=== PATIENT | female | born 1965 | race African-American/Black ===

== ENCOUNTER 2016-10-19 21:23 | Emergency (ER) | payer OTHER ==
[~2016-10-19] VITALS: Ht 160 cm; Wt 92.5 kg
[~2016-10-19 21:23] MED LIST: ALBUTEROL SULF8.5 GM INH; IBUPROFEN600 MG ORAL; LEVAQUIN500 MG ORAL; METRONIDAZOLE500 MG ORAL; NKM; NORCO 5-325 TA1 EACH ORAL; PREDNISONE20 MG ORAL
[2016-10-19] MEDS ORDERED: LASIX20 M1 ORAL (21:46)
[2016-10-19 21:48] VITALS: BP 136/84
[2016-10-19] MEDS ORDERED: Norco 5mg/325mg tab ORAL ONE (22:00)
[2016-10-19] MEDS ORDERED: HYDROCODON-ACE1 EA15 ORAL (22:15)
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
[2016-10-19 22:19] VITALS: BP 136/84
== END 2016-10-19 22:19 | disposition home or self-care (01) ==
LOC: EMR 21:58
DX: M54.2 Cervicalgia (principal); M54.5 Low back pain; V49.40XA Driver injured in collision with unspecified motor vehicles in traffic accident, initial encounter; Y92.410 Unspecified street and highway as the place of occurrence of the external cause; I50.9 Heart failure, unspecified
CPT/HCPCS: 99283

== ENCOUNTER 2017-09-02 17:21 | Emergency (ER) | payer MEDICAID ==
[~2017-09-02] VITALS: Ht 162.6 cm; Wt 90.7 kg
[~2017-09-02 17:21] MED LIST changes: +HYDROCODON-ACE1 EA15 ORAL; +LASIX20 M1 ORAL
[2017-09-02 17:38] VITALS: BP 131/87
--- NOTE | 2017-09-02 17:42 | Emergency Room Report ---
History of Present Illness General Chief Complaint: Upper Respiratory Illness Present Illness HPI 51-year-old female patient presents the ER complaining of increased sputum production for the past few days. Patient reports new onset of cough today while walking into ER. Patient reports that she is now coughing up sputum. Reports sputum is green, denies hemoptysis. Patient reports that she was here picking up her daughter from the ER when she suddenly began coughing and decided to be checked out. Patient's daughter not being seen in ER for similar symptoms. Patient reports history of pacemaker placement in April 2017. Patient reports history of "water on heart". Also reports history of high blood pressure, reports taking medications currently. Denies fever. Reports some difficulty breathing secondary to the phlegm. Denies chest pain, abdominal pain , vomiting, diarrhea. Denies hx of cancer or PE. Denies prolonged sitting or recent travel. Allergies: Coded Allergies: No Known Allergies (Unverified , 10/19/16) Patient History Past Medical History: see triage record Now: No Reviewed Nursing Documentation: PMH: Agreed; PSxH: Agreed Nursing Documentation-PMH Hx Cardiac Problems: Yes - CHF Hx Hypertension: No Hx Pacemaker: Yes - 05/17/17 Hx Asthma: No Hx COPD: No Hx Diabetes: No Review of Systems All Other Systems: negative except mentioned in HPI Physical Exam Vital Signs Date Time Temp Pulse Resp B/P (MAP) Pulse Ox O2 Delivery O2 Flow Rate FiO2 09/02/17 17:29 98.3 95 22 131/87 97 Room Air 98.2 Sp02 EP Interpretation: reviewed, normal General Appearance: well appearing, no apparent distress, alert, GCS 15, non- toxic Head: normocephalic, atraumatic, other - no frontal or maxillary sinus TTP bilaterally Eyes: bilateral eye normal inspection, bilateral eye PERRL ENT: hearing grossly normal, normal pharynx, no angioedema, normal voice, TMs + canals normal, uvula midline, moist mucus membranes, other - postnasal drip Neck: full range of motion Respiratory: lungs clear, normal breath sounds, no rhonchi, no respiratory distress, no accessory muscle use, no wheezing, speaking full sentences Cardiovascular #1: regular rate, rhythm, no edema Gastrointestinal: no rebound Musculoskeletal: back normal, digits/nails normal, gait/station normal, normal range of motion, non-tender, no calf tenderness, Ruth's Sign negative Neurologic: alert, oriented x3, responsive, motor strength/tone normal, sensory intact Psychiatric: mood/affect normal Skin: no rash Lymphatic: no adenopathy Medical Decision Making PA Attestation Dr. Degroot is my supervising Physician whom patient management has been discussed with. Diagnostic Impression: Primary Impression: Cough Additional Impression: Sputum production ER Course Pt presents to ED c/o increase phlegm and cough DDX considered but are not limited to viral URI, pneumonia, CHF, strep throat, rhinitis, sinusitis, otitis media. Low suspicion for pneumonia, will not order CXR at this time. VITAL SIGNS are WNL, patient is afebrile Ordered x-ray to rule out underlying pathology. ER COURSE: PE: Lungs clear to auscultation, no wheezes, rhonci or rales. Post nasal drip noted, no tonsillar exudates, no pharyngeal erythema, sinuses not TTP. Chest x-ray negative for acute disease, pacemaker visible. No signs of acute acute CHF. Patient does not require further workup at this time. Likely viral etiology of symptoms. instructed patient on Symptomatic treatment. provide Rx for Sudafed and cough syrup. Followup with PCP for further treatment and/or referral as needed. Return to ER if symptoms worsen. DISCHARGE: -Rx given for Promethazine syrup for cough sx. -Rx given for Sudafed At this time pt is stable for d/c to home. Patient is resting comfortably, in no acute distress, nontoxic appearing. Patient to take medications as instructed Will provide with patient care instructions and any necessary prescriptions. Care plan and follow-up instructions provided. Patient instructed to follow-up with primary care provider in 3 - 5 days. Patient questions asked and answered. Patient reports understanding and agreement to treatment plan. ER precautions given. Patient instructed to return to ER immediately for any new or worsening of symptoms including but not limited to increasing SOB, persistent fever, intractable vomiting. - Please note that this Emergency Department Report was dictated using [email or web address] media [employer] technology software, occasionally this can lead to erroneous entry secondary to interpretation by the dictation equipment. Chest X-Ray Diagnostic Results Chest X-Ray Diagnostic Results : Chest X-Ray Ordered: Yes # of Views/Limited/Complete: 1 View Indication: Other - cough EP Interpretation: Yes JOEY Xray: Interpretation reviewed, by supervising MD, and agrees with findings. Interpretation: no consolidation, no effusion, no pneumothorax, no acute cardiopulmonary disease, other - pacemaker present Impression: No acute disease PA Scribe Text Wong Bhagat PA-C Last Vital Signs Date Time Temp Pulse Resp B/P (MAP) Pulse Ox O2 Delivery O2 Flow Rate FiO2 09/02/17 17:29 98.3 95 22 131/87 97 Room Air 98.2 Disposition: HOME, SELF-CARE Condition: Stable Scripts Guaifen/Phenyleph/Acetaminophn (Sudafed PE Pressure+Pain+Mucus) 1 Each Tablet 1 EACH PO BID, #24 TAB Prov: Jared Bhagat 09/02/17 Promethazine Hcl (PROMETHAZINE HCL*) 6.25 Mg/5 Ml Syrup 5 ML ORAL Q8H, #120 ML 0 Refills Prov: Jared Bhagat 09/02/17 Patient Instructions: Upper Respiratory Infection, Adult, [id number] Additional Instructions: Followup with primary care provider in 3 -5 days. Take medications as directed. Patient questions asked and answered. ER precautions given, patient instructed to return to ER immediately for any new or worsening of symptoms. Jared Bhagat September 02, 2017 17:42
--- NOTE | 2017-09-02 18:51 | Diagnostic Imaging Report ---
EXAM: XR Chest, 1 View CLINICAL HISTORY: COUGH TECHNIQUE: Frontal view of the chest. COMPARISON: 01/12/2016 FINDINGS: Lungs: Unremarkable. No consolidation. Pleural space: Unremarkable. No pneumothorax. Heart: Stable cardiomediastinal silhouette. Mediastinum: See above. Bones/joints: No acute osseous abnormality. Tubes, lines and devices: New left chest wall AICD. IMPRESSION: No acute cardiopulmonary process.
[2017-09-02] MEDS ORDERED: PROMETHAZI6.25 MG/1 ORAL (19:02)
[2017-09-02] MEDS ORDERED: SUDAFED PE PRE1 EAC3 PO (19:02)
[2017-09-02 19:14] VITALS: BP 0/0
== END 2017-09-02 19:14 | disposition home or self-care (01) ==
LOC: EMR 18:05
DX: R05 Cough (principal); I50.9 Heart failure, unspecified
CPT/HCPCS: 71045; 99284

== ENCOUNTER 2019-02-14 12:25 | Inpatient (IN) | payer OTHER, MEDICAID ==
[~2019-02-14] VITALS: Ht 167.6 cm; Wt 85.0 kg
[~2019-02-14 12:25] MED LIST changes: +PROMETHAZI6.25 MG/1 ORAL; +SUDAFED PE PRE1 EAC3 PO
[2019-02-14] MEDS ORDERED: FUROSEMIDE40 MG ORAL (12:39)
[2019-02-14] MEDS ORDERED: ATORVASTATIN CA40 MG ORAL (12:39)
[2019-02-14] MEDS ORDERED: LISINOPRIL5 MG ORAL (12:39)
--- NOTE | 2019-02-14 12:55 | NUR ---
ED Nurse Note: Pt walked in ED from home c/o SOB x 3 days. Pt aox4, on room air saturating 97%. Pt states she is on lasix PO. Placed on hospital gown. Peripheral IV on right AC started, pt tolerated well. Blood and urine collected; sent down to lab.
--- NOTE | 2019-02-14 13:05 | NUR ---
ED Nurse Note: xray at bedside.
--- NOTE | 2019-02-14 13:30 | Emergency Room Report ---
History of Present Illness General Chief Complaint: Dyspnea/Respdistress Source: Patient Present Illness HPI 3-year-old female with a history of hypertension, pacemaker, CHF comes to the ER for 2 to 3-day history of dyspnea on exertion shortness of breath cough with clear sputum, ankle edema, but denies any leg pain, denies chest pain, syncope, any other complaints. She does report being compliant with her diuretics and other meds, but reports that she has had dietary indiscretion as of late, including lots of fluid and salt intake which she thinks may have triggered this incident. Allergies: Coded Allergies: No Known Allergies (Unverified , 10/19/16) Patient History Past Medical History: see triage record Last Menstrual Period: 2013 Now: No Reviewed Nursing Documentation: PMH: Agreed; PSxH: Agreed Nursing Documentation-PMH Past Medical History: No History, Except For Hx Cardiac Problems: Yes - CHF Hx Hypertension: No Hx Pacemaker: Yes - 05/17/17 Hx Asthma: No Hx COPD: No Hx Diabetes: No Review of Systems All Other Systems: negative except mentioned in HPI Physical Exam Vital Signs Date Time Temp Pulse Resp B/P (MAP) Pulse Ox O2 Delivery O2 Flow Rate FiO2 02/14/19 12:34 98.4 98 20 104/94 (97) 94 Room Air Sp02 EP Interpretation: reviewed, normal General Appearance: alert, non-toxic, mild distress Head: normocephalic Eyes: bilateral eye normal inspection, bilateral eye PERRL, bilateral eye EOMI ENT: normal ENT inspection, hearing grossly normal, normal pharynx, no angioedema, normal voice, moist mucus membranes Neck: normal inspection, full range of motion, supple, supple/symm/no masses Respiratory: chest non-tender, lungs clear, decreased breath sounds - Diminished bilateral bases, chest symmetrical, palpation of chest normal Cardiovascular #1: normal peripheral pulses, regular rate, rhythm, JVD, edema - Ankle edema bilaterally Cardiovascular #2: 2+ radial (R), 2+ radial (L) Gastrointestinal: normal inspection, non tender, soft, no mass, no guarding, no rebound Rectal: deferred Genitourinary: normal inspection, no CVA tenderness Musculoskeletal: back normal, gait/station normal, normal range of motion, non- tender, no calf tenderness, Ruth's Sign negative Neurologic: alert, responsive, manager strategic alliances III-XII nml as tested, motor strength/tone normal, sensory intact, speech normal Psychiatric: judgement/insight normal, memory normal, mood/affect normal, no suicidal/homicidal ideation Lymphatic: no adenopathy Procedures Critical Care Time Critical Care Time 30 mins of critical care time, excluding all procedures due to risk of cardiorespiratory failure Medical Decision Making Diagnostic Impression: Primary Impression: Elevated troponin Additional Impression: Acute exacerbation of CHF (congestive heart failure) ER Course Patient nontoxic, was not having chest pain, but with signs and symptoms of CHF exacerbation, given IV Lasix 60mg, aspirin. Her troponin was positive, and Pro- BNP above 8000, will admit to tele. EKG Diagnostic Results EKG Time: 13:32 EP Interpretation: paced rate 100, no stemi Rate: normal Rhythm: other ST Segments: no acute changes ASA given to the pt in ED: Yes Rhythm Strip Diag. Results Rhythm Strip Time: 13:31 EP Interpretation: yes Rate: 100 Rhythm: no PVC's, no ectopy, other - paced Chest X-Ray Diagnostic Results Chest X-Ray Diagnostic Results : Chest X-Ray Ordered: Yes # of Views/Limited/Complete: 1 View Indication: Shortness of Breath EP Interpretation: Yes Interpretation: other - cardiomegaly, mild pulm vasc congestion, no effusion , no PTX Impression: Other - cardiomegaly, pulm vasc congestion Electronically Signed by: Asif Chaidez MD Last Vital Signs Date Time Temp Pulse Resp B/P (MAP) Pulse Ox O2 Delivery O2 Flow Rate FiO2 02/14/19 12:34 98.4 98 20 104/94 (97) 94 Room Air Disposition: ADMITTED INPATIENT Condition: Stable ASIF CHAIDEZ M.D Feb 14, 2019 13:30
[2019-02-14] MEDS ORDERED: Aspirin Baby 81mg ORAL ONE (13:45)
[2019-02-14 13:55] VITALS: BP 104/94
[2019-02-14 13:56] LABS: BASOPHILS % (AUTO) 1.4 % (0.0-2.0); EOSINOPHILS % (AUTO) 1.7 % (0.0-3.0); HEMOGLOBIN 13.3 G/DL (12.0-16.0); LYMPHOCYTES % (AUTO) 18.2 % (20.0-45.0); MEAN CORPUSCULAR VOLUME 84 FL (80-99); MONOCYTES % (AUTO) 4.5 % (1.0-10.0); NEUTROPHILS % (AUTO) 74.3 % (45.0-75.0); PLATELET COUNT 337 K/UL (150-450); RED BLOOD COUNT 5.11 M/UL (4.20-5.40); RED CELL DISTRIBUTION WIDTH 14.5 % (11.6-14.8)
--- NOTE | 2019-02-14 14:00 | NUR ---
ED Nurse Note: Pt in bed, awake, no resp distress noted. Will continue to monitor.
[2019-02-14 14:16] LABS: ANION GAP 12 mmol/L (5-15); BLOOD UREA NITROGEN 15 mg/dL (7-18); CALCIUM 8.9 MG/DL (8.5-10.1); CARBON DIOXIDE 27 MMOL/L (21-32); CHLORIDE 108 MMOL/L (98-107); POTASSIUM 3.8 MMOL/L (3.5-5.1); SODIUM 147 MMOL/L (136-145)
[2019-02-14 14:34] LABS: ALANINE AMINOTRANSFERASE 58 U/L (12-78); ALBUMIN 2.8 G/DL (3.4-5.0); ALBUMIN/GLOBULIN RATIO 0.9 (1.0-2.7); ALKALINE PHOSPHATASE 75 U/L (46-116); ASPARTATE AMINO TRANSFERASE 26 U/L (15-37); BILIRUBIN,TOTAL 1.2 MG/DL (0.2-1.0)
[2019-02-14 14:41] LABS: BILIRUBIN,DIRECT 0.2 MG/DL (0.0-0.3)
[2019-02-14 15:04] VITALS: BP 115/83
--- NOTE | 2019-02-14 16:37 | NUR ---
ED Nurse Note: Attempted to give report, per charge nurse room/bed not ready at this time. Housekeeping was paged x2 per charge nurse. Will call/try again.
--- NOTE | 2019-02-14 16:47 | NUR ---
ED Nurse Note: Pt awake in bed, eating sandwich. VSS, no respiratory distress noted. Will continue to monitor.
--- NOTE | 2019-02-14 17:04 | NUR ---
ED Nurse Note: Report given to LOLI Barrett via telephone.
[2019-02-14 17:10] VITALS: BP 136/88
--- NOTE | 2019-02-14 17:15 | NUR ---
NURSE NOTES: Patient transferred from ED via gurney, received report from Candelaria/RN. Patient is awake, alert and Oriented x4, No acute distress/SOB noted. ekg monitor placed per protocol. IV site patent, NO bleeding or infiltration noted. Vital signs taken. Skin Intact. Encouraged to use call light when needed. Bed in low position and locked. Call light within reach. Will continue plan of care.
--- NOTE | 2019-02-14 17:33 | NUR ---
TRANSFER TO FLOOR: Patient transferred to telemetry room 205-1 as ordered, per Dr Perez. Report given to LOLI Barrett. Belongings list inventoried and signed by patient and receiving RN. Medications sent to pharmacy. Transferred via CHELO valverde protocol accompanied by LEVI crump and RN. Patient in stable condition.
[2019-02-14 18:22] VITALS: BP 136/88
[2019-02-14 20:00] VITALS: BP 131/91
--- NOTE | 2019-02-14 20:00 | NUR ---
NURSE NOTES: Received report from LOLI Barrett. Patient is awake and responsive, A/O x4. Breathing regular with no distress noted at this time. Patient denies any pain or discomfort at this time. Patient's bed is in lowest position, breaks engaged, and call light within reach. Patient's IV is intact, saline locked. Will continue to monitor.
--- NOTE | 2019-02-14 20:01 | NUR ---
HAND-OFF: Report given to Joan/LOLI, Patient in stable condition. Endorsed plan of care.
--- NOTE | 2019-02-14 20:18 | Diagnostic Imaging Report ---
CHEST RADIOGRAPH Indication: Loss of breath Technique: Single AP view of the chest. Comparison: Chest radiograph dated 09/02/2017 Findings: The cardiomediastinal silhouette is unchanged with moderate cardiomegaly. There is pulmonary vascular congestion. There is no new airspace consolidation, pneumothorax or pleural effusion. Osseous structures demonstrate no acute abnormality. Unchanged left upper chest ED/pacemaker. IMPRESSION: 1. Pulmonary vascular congestion without new airspace consolidation. 2. Moderate cardiomegaly.
[2019-02-14] MEDS: Atorvastatin 20mg tab ORAL SCH (20:41)
[2019-02-14] MEDS: Morphine Sulfate 2mg/ml Inj(IV/IM USE ONLY) IVP PRN (20:50)
--- NOTE | 2019-02-14 21:02 | Cardiology Progress Note ---
Assessment/Plan Assessment/Plan [id number] Objective Last 24 Hour Vital Signs Date Time Temp Pulse Resp B/P (MAP) Pulse Ox O2 Delivery O2 Flow Rate FiO2 02/14/19 18:22 98.1 89 18 136/88 (104) 96 02/14/19 18:03 Room Air 02/14/19 17:32 98.2 97 20 128/73 97 Room Air 02/14/19 17:10 98.1 89 18 136/88 (104) 96 02/14/19 15:04 98.2 97 20 115/83 96 Room Air 02/14/19 13:55 98 20 Room Air 02/14/19 13:55 98.4 98 20 104/94 97 Room Air 02/14/19 12:34 98.4 98 20 104/94 (97) 94 Room Air Laboratory Tests Test 02/14/19 13:00 White Blood Count 6.0 K/UL (4.8-10.8) Red Blood Count 5.11 M/UL (4.20-5.40) Hemoglobin 13.3 G/DL (12.0-16.0) Hematocrit 43.0 % (37.0-47.0) Mean Corpuscular Volume 84 FL (80-99) Mean Corpuscular Hemoglobin 26.0 PG (27.0-31.0) L Mean Corpuscular Hemoglobin Concent 30.9 G/DL (32.0-36.0) L Red Cell Distribution Width 14.5 % (11.6-14.8) Platelet Count 337 K/UL (150-450) Mean Platelet Volume 6.2 FL (6.5-10.1) L Neutrophils (%) (Auto) 74.3 % (45.0-75.0) Lymphocytes (%) (Auto) 18.2 % (20.0-45.0) L Monocytes (%) (Auto) 4.5 % (1.0-10.0) Eosinophils (%) (Auto) 1.7 % (0.0-3.0) Basophils (%) (Auto) 1.4 % (0.0-2.0) Sodium Level 147 MMOL/L (136-145) H Potassium Level 3.8 MMOL/L (3.5-5.1) Chloride Level 108 MMOL/L (98-107) H Carbon Dioxide Level 27 MMOL/L (21-32) Anion Gap 12 mmol/L (5-15) Blood Urea Nitrogen 15 mg/dL (7-18) Creatinine 1.0 MG/DL (0.55-1.30) Estimat Glomerular Filtration Rate > 60 mL/min (>60) Glucose Level 114 MG/DL (74-106) H Calcium Level 8.9 MG/DL (8.5-10.1) Total Bilirubin 1.2 MG/DL (0.2-1.0) H Direct Bilirubin 0.2 MG/DL (0.0-0.3) Aspartate Amino Transf (AST/SGOT) 26 U/L (15-37) Alanine Aminotransferase (ALT/SGPT) 58 U/L (12-78) Alkaline Phosphatase 75 U/L (46-116) Troponin I 0.065 ng/mL (0.000-0.056) Pro-B-Type Natriuretic Peptide 8090 pg/mL (0-125) H Total Protein 6.0 G/DL (6.4-8.2) L Albumin 2.8 G/DL (3.4-5.0) L Globulin 3.2 g/dL Albumin/Globulin Ratio 0.9 (1.0-2.7) L Severino Rojas MD Feb 14, 2019 21:02
[2019-02-15] VITALS: BP 113/72
[2019-02-15 04:00] VITALS: BP 138/94
--- NOTE | 2019-02-15 06:46 | NUR ---
NURSE NOTES: Called Dr. Perez regarding patient's request for Benadryl for itching. Awaiting callback.
--- NOTE | 2019-02-15 07:02 | NUR ---
NURSE NOTES: Received new order from Dr. Perez for Benadryl 50mg PO q6hr PRN x 3 days. Noted and carried out.
--- NOTE | 2019-02-15 07:15 | NUR ---
HAND-OFF: Report given to LOLI Barrett. Patient is awake lying semi-anderson's; resting comfortably. In stable condition.
--- NOTE | 2019-02-15 07:20 | NUR ---
NURSE NOTES: Received report from Ken/RN, Patient is awake and alert. Breathing unlabored and even, no acute distress/SOB noted. A/O x4, Able to make needs known. IV site patent, no bleeding or infiltration noted. Araceli pain at this time. Encouraged to use call light when needed. Bed in low position and locked, Bed alarm engaged. Call light within reach. Will continue plan of care.
[2019-02-15 07:21] LABS: ANION GAP 8 mmol/L (5-15); BLOOD UREA NITROGEN 18 mg/dL (7-18); CALCIUM 8.6 MG/DL (8.5-10.1); CARBON DIOXIDE 29 MMOL/L (21-32); CHLORIDE 106 MMOL/L (98-107); POTASSIUM 3.4 MMOL/L (3.5-5.1); SODIUM 143 MMOL/L (136-145)
[2019-02-15 08:00] VITALS: BP 144/104
[2019-02-15] MEDS: Lisinopril 2.5mg tab ORAL SCH ×2 (08:46→17:23)
[2019-02-15] MEDS: Morphine Sulfate 2mg/ml Inj(IV/IM USE ONLY) IVP PRN ×2 (08:47→17:24)
[2019-02-15] MEDS ORDERED: Lisinopril 2.5mg tab ORAL SCH (09:00)
[2019-02-15] MEDS ORDERED: Furosemide 40mg tab ORAL SCH (09:00)
--- NOTE | 2019-02-15 10:33 | NUR ---
*-* INSURANCE *-* ALL AVAILABLE CLINICALS HAVE BEEN FAXED TO: [id number] NCM:BENJY P: [phone] F: [phone] Addendum: 02/15/19 at 1632 by HELADIO JOSE CM Alignment CM: Yolie ref#[id number] ph#[phone] cell#[phone] fax#[phone] & [employer] No CM or tracking# assigned yet PH#[phone]
--- NOTE | 2019-02-15 11:10 | NUR ---
PT EVALUATION NOTE Patient seen for initial evaluation, see complete evaluation for details. Patient presents with generalized weakness and deconditioning which affects patient's ability to complete mobility tasks and ADLs. Patient's ambulation limited to 100 ft due to c/o SOB with ambulation. Patient educated in proper breathing techniques and pacing skills. Patient will benefit from skilled inpatient PT intervention to address overall strength and endurance and to increase knowledge for improved breathing while performing functional mobility tasks. Recommend discharge home once medically cleared by MD. No DME needs identified at this time, patient has four wheeled walker and bedside commode at home. Addendum: 02/15/19 at 1229 by ADDY DU PT Amended: Links added.
--- NOTE | 2019-02-15 11:29 | Consultation ---
History of Present Illness General Date patient seen: Feb 15, 2019 Chief Complaint: Dyspnea/Respdistress Present Illness HPI 53 year old female with hx of systolic cardiomyopathy, ICD, on Lasix presented to ER with CC of shortness of breath for the last three days. She just moved to a new apartment because of respiratory problems she had in previous apartment. Allergies: Coded Allergies: No Known Allergies (Unverified , 10/19/16) Medication History Scheduled Atorvastatin Calcium* (Atorvastatin Calcium*), 40 MG ORAL BEDTIME, (Reported) Furosemide* (Lasix*), 40 MG ORAL DAILY, (Reported) Lisinopril (Lisinopril*), 5 MG ORAL DAILY, (Reported) Discontinued Medications Furosemide* (Lasix*), 20 MG ORAL TWICE A DAY, (Reported) Discontinued Reason: Pt stopped taking med Guaifen/Phenyleph/Acetaminophn (Sudafed PE Pressure+Pain+Mucus), 1 EACH PO BID Discontinued Reason: Pt stopped taking med Hydrocodone/Acetaminophen 5-325* (Hydrocodone/Acetaminophen 5-325*), 1 TAB ORAL Q6H PRN for For Pain Discontinued Reason: Pt stopped taking med Promethazine Hcl (Promethazine Hcl*), 5 ML ORAL Q8H Discontinued Reason: Pt stopped taking med Patient History Healthcare decision maker N Resuscitation status Full Code Advanced Directive on File Past Medical/Surgical History Past Medical/Surgical History: (1) Chronic systolic CHF (congestive heart failure) (2) EF of 25% (3) Bronchitis Review of Systems All Other Systems: negative except mentioned in HPI Physical Exam General Appearance: WD/WN, no apparent distress Lines, tubes and drains: peripheral HEENT: normocephalic, atraumatic Neck: non-tender, normal alignment Respiratory/Chest: chest wall non-tender, lungs clear Breasts: no masses Cardiovascular/Chest: normal peripheral pulses Abdomen: normal bowel sounds Genitourinary/Rectal: normal genital exam Extremities: normal range of motion Skin Exam: normal pigmentation 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 Last 24 Hour Vital Signs Date Time Temp Pulse Resp B/P (MAP) Pulse Ox O2 Delivery O2 Flow Rate FiO2 02/15/19 09:00 Room Air 02/15/19 08:46 144/104 02/15/19 08:00 97.4 107 20 144/104 (117) 97 02/15/19 08:00 116 1024/19 04:00 97.4 92 20 138/94 (109) 98 02/15/19 04:00 91 02/15/19 00:00 98.1 110 19 113/72 (86) 96 02/15/19 00:00 102 02/14/19 21:00 Room Air 02/14/19 20:00 97.6 96 19 131/91 (104) 95 02/14/19 20:00 95 02/14/19 18:22 98.1 89 18 136/88 (104) 96 02/14/19 18:03 Room Air 02/14/19 17:32 98.2 97 20 128/73 97 Room Air 02/14/19 17:10 98.1 89 18 136/88 (104) 96 02/14/19 15:04 98.2 97 20 115/83 96 Room Air 02/14/19 13:55 98 20 Room Air 02/14/19 13:55 98.4 98 20 104/94 97 Room Air 02/14/19 12:34 98.4 98 20 104/94 (97) 94 Room Air Intake and Output 02/14/19 02/15/19 19:00 07:00 Intake Total 250 ml 250 ml Balance 250 ml 250 ml Intake Oral 250 ml 250 ml # Voids 2 Laboratory Tests Test 02/14/19 13:00 02/15/19 04:47 White Blood Count 6.0 K/UL (4.8-10.8) Red Blood Count 5.11 M/UL (4.20-5.40) Hemoglobin 13.3 G/DL (12.0-16.0) Hematocrit 43.0 % (37.0-47.0) Mean Corpuscular Volume 84 FL (80-99) Mean Corpuscular Hemoglobin 26.0 PG (27.0-31.0) L Mean Corpuscular Hemoglobin Concent 30.9 G/DL (32.0-36.0) L Red Cell Distribution Width 14.5 % (11.6-14.8) Platelet Count 337 K/UL (150-450) Mean Platelet Volume 6.2 FL (6.5-10.1) L Neutrophils (%) (Auto) 74.3 % (45.0-75.0) Lymphocytes (%) (Auto) 18.2 % (20.0-45.0) L Monocytes (%) (Auto) 4.5 % (1.0-10.0) Eosinophils (%) (Auto) 1.7 % (0.0-3.0) Basophils (%) (Auto) 1.4 % (0.0-2.0) Sodium Level 147 MMOL/L (136-145) H 143 MMOL/L (136-145) Potassium Level 3.8 MMOL/L (3.5-5.1) 3.4 MMOL/L (3.5-5.1) L Chloride Level 108 MMOL/L (98-107) H 106 MMOL/L (98-107) Carbon Dioxide Level 27 MMOL/L (21-32) 29 MMOL/L (21-32) Anion Gap 12 mmol/L (5-15) 8 mmol/L (5-15) Blood Urea Nitrogen 15 mg/dL (7-18) 18 mg/dL (7-18) Creatinine 1.0 MG/DL (0.55-1.30) 1.0 MG/DL (0.55-1.30) Estimat Glomerular Filtration Rate > 60 mL/min (>60) > 60 mL/min (>60) Glucose Level 114 MG/DL (74-106) H 97 MG/DL (74-106) Calcium Level 8.9 MG/DL (8.5-10.1) 8.6 MG/DL (8.5-10.1) Total Bilirubin 1.2 MG/DL (0.2-1.0) H Direct Bilirubin 0.2 MG/DL (0.0-0.3) Aspartate Amino Transf (AST/SGOT) 26 U/L (15-37) Alanine Aminotransferase (ALT/SGPT) 58 U/L (12-78) Alkaline Phosphatase 75 U/L (46-116) Troponin I 0.065 ng/mL (0.000-0.056) 0.074 ng/mL (0.000-0.056) Pro-B-Type Natriuretic Peptide 8090 pg/mL (0-125) H Total Protein 6.0 G/DL (6.4-8.2) L Albumin 2.8 G/DL (3.4-5.0) L Globulin 3.2 g/dL Albumin/Globulin Ratio 0.9 (1.0-2.7) L Magnesium Level 1.6 MG/DL (1.8-2.4) L Height (Feet): 5 Height (Inches): 6.00 Weight (Pounds): 179 Medications Current Medications Medications (Trade) Dose Ordered Sig/Tristan Route PRN Reason Start Time Stop Time Status Last Admin Dose Admin Atorvastatin Calcium (Lipitor) 40 mg BEDTIME ORAL 02/14/19 21:00 03/16/19 20:59 02/14/19 20:41 Diphenhydramine HCl (Benadryl) 50 mg Q6H PRN ORAL Itching 02/15/19 08:15 02/18/19 08:14 02/15/19 08:45 Furosemide (Lasix) 40 mg EVERY 12 HOURS IV 02/15/19 09:00 03/17/19 08:59 02/15/19 08:46 Lisinopril (Zestril) 5 mg BID ORAL 02/15/19 09:00 03/17/19 08:59 02/15/19 08:46 Magnesium Sulfate 100 ml @ 100 mls/hr Q1H IV 02/15/19 12:45 02/15/19 14:44 UNV Morphine Sulfate (Morphine Sulfate) 2 mg Q4H PRN IVP PAIN 4-10 02/14/19 18:00 02/21/19 17:59 02/14/19 20:50 Potassium Chloride (K-Dur) 40 meq ONCE ONCE ORAL 02/15/19 11:30 02/15/19 11:31 UNV Assessment/Plan Problem List: (1) Bronchitis ICD Codes: J40 - Bronchitis, not specified as acute or chronic SNOMED: 85636879 (2) Chronic systolic CHF (congestive heart failure) ICD Codes: I50.22 - Chronic systolic (congestive) heart failure SNOMED: 36764131, 740059234 (3) EF of 25% (4) Non-ST elevation (NSTEMI) myocardial infarction ICD Codes: I21.4 - Non-ST elevation (NSTEMI) myocardial infarction SNOMED: 55247582 Assessment/Plan: respiratory treatment titrate fio2 to sat of 92% there is no pulmonary edema on CXR. She doesn't have any peripheral edema. Echo reviewed Rosa Goodwin MD Feb 15, 2019 11:29
[2019-02-15 12:00] VITALS: BP 137/103
--- NOTE | 2019-02-15 13:09 | CDS Physician Query ---
Clarification is required for compliance, coding accuracy, and to reflect severity of illness for this patient Dear Severino Steven MD Date: 02/15/2019 Medical Laboratory Technical Officer/CDS Name: Tristin Cristobal 53 year old female with hx of systolic cardiomyopathy, ICD, on Lasix presented to ER with CC of shortness of breath for the last three days. She just moved to a new apartment because of respiratory problems she had in previous apartment. "CHF" documented in Cardiology progress notes Echo: EF 25% BNP: 8090 Tx: IV FUROCEMID Please Clarify: Acuity [] Acute [] Chronic [] Acute on Chronic Type [] Systolic [] Diastolic [] Systolic & Diastolic (Combined) [] Other: Present on Admission: [] Yes [] No [] Clinically Undetermined Physician signature Date Please also document in your Progress Notes and/or Discharge Summary and indicate if the condition was present on admission. TERRANCE
[2019-02-15 16:00] VITALS: BP 145/91
--- NOTE | 2019-02-15 16:19 | NUR ---
CASE MANAGEMENT: INITIAL REVIEW 53YR OLD FEMALE FROM HOME CC: DYSPNEA/ RESP. DISTRESS SI: CHF. ELEVATED TROP 98.4 98 20 104/94 94% RA TROP 0.065; NA+ 147; BNP 8090 IS: IV LASIX X1 ASA PO X1 2E TELE UNIT CASE MANAGEMENT: INITIAL REVIEW 02/15/19 SI: CHF. ELEVATED TROP 97.4 107 20 144/104 97% RA TROP 0.074; K+ 3.4; MG 1.6 IS: IV LASIX Q12HR ZESTRIL PO BID LIPITOR PO BID IV MORPHINE SULFATE Q4/PRN ASA PO X1 2E TELE UNIT
[2019-02-15 20:00] VITALS: BP 137/90
[2019-02-15] MEDS: Atorvastatin 20mg tab ORAL SCH (21:03)
--- NOTE | 2019-02-15 21:06 | Cardiology Progress Note ---
Assessment/Plan Assessment/Plan cm s/p icd New diagnosis of LV thrombus will need anticoagulation heparin first then Coumadin will need couadmin teaching continue chf treatment i have reviewe srikanth of [facility] echo image mys elf d/w pt regardin lv thombus and risk of embolism and treatmen with anticoagualtion Subjective Cardiovascular: Denies: chest pain, irregular heart rate Respiratory: Reports: shortness of breath Gastrointestinal/Abdominal: Denies: abdominal pain Genitourinary: Denies: burning Objective Last 24 Hour Vital Signs Date Time Temp Pulse Resp B/P (MAP) Pulse Ox O2 Delivery O2 Flow Rate FiO2 02/15/19 17:23 145/91 02/15/19 16:00 108 02/15/19 16:00 97.7 110 20 145/91 (109) 97 02/15/19 12:00 97.7 88 18 137/103 (114) 96 02/15/19 12:00 98 02/15/19 09:00 Room Air 02/15/19 08:46 144/104 02/15/19 08:00 97.4 107 20 144/104 (117) 97 02/15/19 08:00 116 02/15/19 04:00 97.4 92 20 138/94 (109) 98 02/15/19 04:00 91 02/15/19 00:00 98.1 110 19 113/72 (86) 96 02/15/19 00:00 102 General Appearance: no apparent distress, alert Neck: supple Respiratory/Chest: crackles/rales - base Abdomen: normal bowel sounds, non tender, soft Extremities: no swelling Intake and Output 02/14/19 02/15/19 19:00 07:00 Intake Total 250 ml 250 ml Balance 250 ml 250 ml Intake Oral 250 ml 250 ml # Voids 2 Laboratory Tests Test 02/15/19 04:47 02/15/19 12:00 02/15/19 19:50 Sodium Level 143 MMOL/L (136-145) Potassium Level 3.4 MMOL/L (3.5-5.1) L Chloride Level 106 MMOL/L (98-107) Carbon Dioxide Level 29 MMOL/L (21-32) Anion Gap 8 mmol/L (5-15) Blood Urea Nitrogen 18 mg/dL (7-18) Creatinine 1.0 MG/DL (0.55-1.30) Estimat Glomerular Filtration Rate > 60 mL/min (>60) Glucose Level 97 MG/DL (74-106) Calcium Level 8.6 MG/DL (8.5-10.1) Magnesium Level 1.6 MG/DL (1.8-2.4) L Troponin I 0.074 ng/mL (0.000-0.056) 0.061 ng/mL (0.000-0.056) Pending Severino Rojas MD Feb 15, 2019 21:06
[2019-02-15] MEDS ORDERED: Heparin 5000 units/ml inj IV SCH (21:22)
[2019-02-15] MEDS ORDERED: Heparin 25,000u/D5W 500ml 500 ML IV SCH (21:23)
[2019-02-15 21:30] LABS: BASOPHILS % (AUTO) 1.7 % (0.0-2.0); EOSINOPHILS % (AUTO) 2.8 % (0.0-3.0); HEMATOCRIT 41.6 % (37.0-47.0); HEMOGLOBIN 13.3 G/DL (12.0-16.0); LYMPHOCYTES % (AUTO) 19.8 % (20.0-45.0); MEAN CORPUSCULAR VOLUME 83 FL (80-99); MONOCYTES % (AUTO) 3.5 % (1.0-10.0); NEUTROPHILS % (AUTO) 72.2 % (45.0-75.0); PLATELET COUNT 340 K/UL (150-450); RED BLOOD COUNT 5.02 M/UL (4.20-5.40); RED CELL DISTRIBUTION WIDTH 14.4 % (11.6-14.8); WHITE BLOOD COUNT 7.8 K/UL (4.8-10.8)
--- NOTE | 2019-02-15 23:14 | NUR ---
HAND-OFF: Report given to Jessica/RN, Patient in stable condition. Endorsed plan of care.
--- NOTE | 2019-02-15 23:59 | NUR ---
NURSE NOTES: Received pt from [facility]. Pt asleep. Bed in lowest position. Call light within reach. Will continue to monitor.
[2019-02-16] VITALS: BP 146/101
--- NOTE | 2019-02-16 02:13 | NUR ---
NURSE NOTES: Called and left a message with Dr. Perez and Dr. Goodwin regarding pts complaint of difficulty breathing. Dr. Perez gave the following orders: - Duoneb q6 prn
[2019-02-16] MEDS: Albuterol/Ipratropium 3ml neb HHN PRN ×2 (02:42→20:20)
[2019-02-16 04:00] VITALS: BP 149/100
[2019-02-16 04:39] LABS: BASOPHILS % (AUTO) 1.3 % (0.0-2.0); EOSINOPHILS % (AUTO) 2.8 % (0.0-3.0); HEMATOCRIT 39.9 % (37.0-47.0); LYMPHOCYTES % (AUTO) 15.7 % (20.0-45.0); MEAN CORPUSCULAR VOLUME 82 FL (80-99); MONOCYTES % (AUTO) 3.2 % (1.0-10.0); PLATELET COUNT 320 K/UL (150-450); RED BLOOD COUNT 4.86 M/UL (4.20-5.40); RED CELL DISTRIBUTION WIDTH 14.6 % (11.6-14.8); WHITE BLOOD COUNT 7.9 K/UL (4.8-10.8)
[2019-02-16 05:13] LABS: ALANINE AMINOTRANSFERASE 42 U/L (12-78); ALBUMIN 2.7 G/DL (3.4-5.0); ALBUMIN/GLOBULIN RATIO 0.9 (1.0-2.7); ALKALINE PHOSPHATASE 71 U/L (46-116); ANION GAP 7 mmol/L (5-15); ASPARTATE AMINO TRANSFERASE 20 U/L (15-37); BILIRUBIN,TOTAL 1.1 MG/DL (0.2-1.0); BLOOD UREA NITROGEN 19 mg/dL (7-18); CALCIUM 8.2 MG/DL (8.5-10.1); CARBON DIOXIDE 29 MMOL/L (21-32); CHLORIDE 106 MMOL/L (98-107); POTASSIUM 3.6 MMOL/L (3.5-5.1); SODIUM 142 MMOL/L (136-145)
[2019-02-16] MEDS ORDERED: Heparin 25,000u/D5W 500ml 500 ML IV SCH ×3 (05:15→19:45)
[2019-02-16] MEDS ORDERED: Heparin 5000 units/ml inj IV SCH ×2 (05:15→19:45)
[2019-02-16 05:21] LABS: BILIRUBIN,DIRECT 0.3 MG/DL (0.0-0.3)
--- NOTE | 2019-02-16 07:32 | NUR ---
HAND-OFF: Report given to [facility]. Pt stable.
[2019-02-16 08:00] VITALS: BP_SYST 137; BP_DIAS 100; BP_DIAS 102
--- NOTE | 2019-02-16 08:06 | NUR ---
Received patient awake, oriented. Denies any pain at this time. On room air. No SOB/respi distress. IV site to right hand intact, IV heparin running at 22cc/hr. All needs attended, Will continue to monitor.
--- NOTE | 2019-02-16 08:16 | NUR ---
RADIOLOGY DEPT., CHEST X-RAY DONE.-P.DYE
--- NOTE | 2019-02-16 08:39 | Diagnostic Imaging Report ---
Indication: Dyspnea Technique: One view of the chest Comparison: 02/14/2019 Findings: There is a left chest biventricular AICD again demonstrated. Asymmetric hazy opacity throughout the right lung noted. Minimal pulmonary interstitial congestion persists. The pleural spaces are clear. Impression: Cardiomegaly Minimal pulmonary interstitial congestion Diffuse hazy right lung opacity; suspect just represents overlying soft tissue but hazy infiltrate or edema also possible
--- NOTE | 2019-02-16 08:46 | General Progress Note ---
Assessment/Plan Problem List: (1) HTN (hypertension) ICD Codes: I10 - Essential (primary) hypertension SNOMED: 31339894 (2) Non-ST elevation (NSTEMI) myocardial infarction ICD Codes: I21.4 - Non-ST elevation (NSTEMI) myocardial infarction SNOMED: 97069286 (3) Elevated troponin ICD Codes: R79.89 - Other specified abnormal findings of blood chemistry SNOMED: 838009656, 609902114, 503044442 (4) Acute exacerbation of CHF (congestive heart failure) ICD Codes: I50.9 - Heart failure, unspecified SNOMED: 127962375, 87582981713022, 112461490 Status: stable, progressing Assessment/Plan: pt diet pain control cardio f/u cbc bmp am Subjective Constitutional: Reports: weakness Allergies: Coded Allergies: No Known Allergies (Unverified , 10/19/16) All Systems: reviewed and negative except above Subjective eating calm Objective Last 24 Hour Vital Signs Date Time Temp Pulse Resp B/P (MAP) Pulse Ox O2 Delivery O2 Flow Rate FiO2 02/16/19 08:31 Room Air 02/16/19 04:00 97.9 103 21 149/100 (116) 93 02/16/19 04:00 108 02/16/19 02:42 107 20 98 Nasal Cannula 2.0 28 108 20 90 02/16/19 00:00 97.5 109 19 146/101 (116) 91 02/16/19 00:00 108 02/15/19 21:00 Room Air 02/15/19 20:00 113 02/15/19 20:00 98.1 105 18 137/90 (106) 98 02/15/19 17:23 145/91 02/15/19 16:00 108 02/15/19 16:00 97.7 110 20 145/91 (109) 97 02/15/19 12:00 97.7 88 18 137/103 (114) 96 02/15/19 12:00 98 02/15/19 09:00 Room Air 02/15/19 08:46 144/104 Intake and Output 02/15/19 02/16/19 19:00 07:00 Intake Total 360 ml Balance 360 ml Intake Oral 360 ml # Voids 3 3 Laboratory Tests 02/15/19 12:00: Troponin I 0.061H 02/15/19 19:50: Troponin I 0.243H 02/15/19 21:17: White Blood Count 7.8, Red Blood Count 5.02, Hemoglobin 13.3, Hematocrit 41.6, Mean Corpuscular Volume 83, Mean Corpuscular Hemoglobin 26.4L, Mean Corpuscular Hemoglobin Concent 31.9L, Red Cell Distribution Width 14.4, Platelet Count 340, Mean Platelet Volume 6.8, Neutrophils (%) (Auto) 72.2, Lymphocytes (%) (Auto) 19.8L, Monocytes (%) (Auto) 3.5, Eosinophils (%) (Auto) 2.8, Basophils (%) (Auto ) 1.7, Activated Partial Thromboplast Time 24 02/16/19 04:00: White Blood Count 7.9, Red Blood Count 4.86, Hemoglobin 13.0, Hematocrit 39.9, Mean Corpuscular Volume 82, Mean Corpuscular Hemoglobin 26.8L, Mean Corpuscular Hemoglobin Concent 32.7, Red Cell Distribution Width 14.6, Platelet Count 320, Mean Platelet Volume 6.5, Neutrophils (%) (Auto) 77.0H, Lymphocytes (%) (Auto) 15.7L, Monocytes (%) (Auto) 3.2, Eosinophils (%) (Auto) 2.8, Basophils (%) (Auto ) 1.3, Activated Partial Thromboplast Time 42H, Sodium Level 142, Potassium Level 3.6, Chloride Level 106, Carbon Dioxide Level 29, Anion Gap 7, Blood Urea Nitrogen 19H, Creatinine 1.0, Estimat Glomerular Filtration Rate > 60, Glucose Level 112H, Calcium Level 8.2L, Total Bilirubin 1.1H, Direct Bilirubin 0.3, Aspartate Amino Transf (AST/SGOT) 20, Alanine Aminotransferase (ALT/SGPT) 42, Alkaline Phosphatase 71, Pro-B-Type Natriuretic Peptide 6469H, Total Protein 5.7L, Albumin 2.7L, Globulin 3.0, Albumin/Globulin Ratio 0.9L Height (Feet): 5 Height (Inches): 6.00 Weight (Pounds): 179 General Appearance: lethargic EENT: normal ENT inspection Neck: normal alignment Cardiovascular: normal peripheral pulses, normal rate, regular rhythm Respiratory/Chest: chest wall non-tender, lungs clear, normal breath sounds Abdomen: normal bowel sounds, non tender, soft Extremities: normal inspection Edema: no edema noted Arm (L), no edema noted Arm (R), no edema noted Leg (L), no edema noted Leg (R), no edema noted Pedal (L), no edema noted Pedal (R), no edema noted Generalized Neurologic: responsive, motor weakness Skin: normal pigmentation, warm/dry Alan Perez DO Feb 16, 2019 08:46
[2019-02-16] MEDS: Lisinopril 2.5mg tab ORAL SCH ×2 (09:10→17:24)
--- NOTE | 2019-02-16 09:27 | NUR ---
CASE MANAGEMENT:REVIEW 02/16/19 SI: NEW DIAGNOSIS OF LV THROMBUS NSTEMI. AC/CHR CHF. HTN 98.6 115 26 137/102 95% ON RA LAST TROPONIN(+) 0.243 IS: HEPARIN GTT IV LASIX Q12 LISINOPRIL PO BID : TELEMETRY STATUS DCP: FROM HOME
--- NOTE | 2019-02-16 10:15 | NUR ---
PT NOTE Patient with left ventricle thrombus. Discussed with Massimo ENNIS and Marino wei RN. Patient on heparin drip, PT contraindicated per heparin protocol. Will discharge patient from PT at this time and wait for MD resume order for PT once patient is medically cleared to participate with PT.
--- NOTE | 2019-02-16 11:23 | NUR ---
RD ASSESSMENT & RECOMMENDATIONS SEE CARE ACTIVITY FOR COMPLETE ASSESSMENT DAILY ESTIMATED NEEDS: Needs based on Cardiac, pulmonary adj 62.8kg 25-30 kcals/kg 1510-8696 total kcals 1-1.5 g protein/kg 63-94 g total protein Fluid per MD, on lasix NUTRITION DIAGNOSIS: *Decrease sodium needs r/t CHF, cardiac history as evidenced by elev BP (137/102), elev BNP (6469), on lasix. CURRENT DIET:Low Na diet PO DIET RECOMMENDATIONS: Maintain Low Sodium Diet ADDITIONAL RECOMMENDATIONS: 1) Obtain daily weights/ standing if able . 2) Monitor fluid intake w/ lasix 3) Check lytes daily on lasix 4) Obtain a lipid panel for eval
--- NOTE | 2019-02-16 11:50 | Pulmonology Progress Note ---
Assessment/Plan Problems: (1) Non-ST elevation (NSTEMI) myocardial infarction (2) Bronchitis (3) Chronic systolic CHF (congestive heart failure) (4) EF of 25% Assessment/Plan troponin went up. echo reviewed on Heparin drip respiratory treatment antitussives f/u cardiology recommendations Subjective ROS Limited/Unobtainable: No Interval Events: still coughing Allergies: Coded Allergies: No Known Allergies (Unverified , 10/19/16) Objective Last 24 Hour Vital Signs Date Time Temp Pulse Resp B/P (MAP) Pulse Ox O2 Delivery O2 Flow Rate FiO2 02/16/19 09:32 119 22 95 Nasal Cannula 2.0 28 02/16/19 09:32 94 Nasal Cannula 2.0 28 02/16/19 09:10 137/100 02/16/19 08:31 Room Air 02/16/19 08:00 98.6 115 21 137/100 (112) 93 02/16/19 08:00 108 02/16/19 08:00 98.6 115 26 137/102 (114) 95 02/16/19 04:00 97.9 103 21 149/100 (116) 93 02/16/19 04:00 108 02/16/19 02:42 107 20 98 Nasal Cannula 2.0 28 108 20 90 02/16/19 00:00 97.5 109 19 146/101 (116) 91 02/16/19 00:00 108 02/15/19 21:00 Room Air 02/15/19 20:00 113 02/15/19 20:00 98.1 105 18 137/90 (106) 98 02/15/19 17:23 145/91 02/15/19 16:00 108 02/15/19 16:00 97.7 110 20 145/91 (109) 97 02/15/19 12:00 97.7 88 18 137/103 (114) 96 02/15/19 12:00 98 Intake and Output 02/15/19 02/16/19 19:00 07:00 Intake Total 360 ml Balance 360 ml Intake Oral 360 ml # Voids 3 3 General Appearance: WD/WN HEENT: normocephalic, atraumatic Respiratory/Chest: chest wall non-tender, lungs clear Breasts: no masses Cardiovascular: normal peripheral pulses, normal rate Abdomen: normal bowel sounds, no organomegaly Genitourinary: normal external genitalia Skin: no rash 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 Laboratory Tests 02/15/19 12:00: Troponin I 0.061H 02/15/19 19:50: Troponin I 0.243H 02/15/19 21:17: White Blood Count 7.8, Red Blood Count 5.02, Hemoglobin 13.3, Hematocrit 41.6, Mean Corpuscular Volume 83, Mean Corpuscular Hemoglobin 26.4L, Mean Corpuscular Hemoglobin Concent 31.9L, Red Cell Distribution Width 14.4, Platelet Count 340, Mean Platelet Volume 6.8, Neutrophils (%) (Auto) 72.2, Lymphocytes (%) (Auto) 19.8L, Monocytes (%) (Auto) 3.5, Eosinophils (%) (Auto) 2.8, Basophils (%) (Auto ) 1.7, Activated Partial Thromboplast Time 24 02/16/19 04:00: White Blood Count 7.9, Red Blood Count 4.86, Hemoglobin 13.0, Hematocrit 39.9, Mean Corpuscular Volume 82, Mean Corpuscular Hemoglobin 26.8L, Mean Corpuscular Hemoglobin Concent 32.7, Red Cell Distribution Width 14.6, Platelet Count 320, Mean Platelet Volume 6.5, Neutrophils (%) (Auto) 77.0H, Lymphocytes (%) (Auto) 15.7L, Monocytes (%) (Auto) 3.2, Eosinophils (%) (Auto) 2.8, Basophils (%) (Auto ) 1.3, Activated Partial Thromboplast Time 42H, Sodium Level 142, Potassium Level 3.6, Chloride Level 106, Carbon Dioxide Level 29, Anion Gap 7, Blood Urea Nitrogen 19H, Creatinine 1.0, Estimat Glomerular Filtration Rate > 60, Glucose Level 112H, Calcium Level 8.2L, Total Bilirubin 1.1H, Direct Bilirubin 0.3, Aspartate Amino Transf (AST/SGOT) 20, Alanine Aminotransferase (ALT/SGPT) 42, Alkaline Phosphatase 71, Pro-B-Type Natriuretic Peptide 6469H, Total Protein 5.7L, Albumin 2.7L, Globulin 3.0, Albumin/Globulin Ratio 0.9L 02/16/19 11:40: Activated Partial Thromboplast Time [Pending] Current Medications Medications (Trade) Dose Ordered Sig/Tristan Route PRN Reason Start Time Stop Time Status Last Admin Dose Admin Albuterol/ Ipratropium (Albuterol/ Ipratropium) 3 ml Q6H PRN HHN sob 02/16/19 02:30 02/21/19 02:29 02/16/19 02:42 Atorvastatin Calcium (Lipitor) 40 mg BEDTIME ORAL 02/14/19 21:00 03/16/19 20:59 02/15/19 21:03 Diphenhydramine HCl (Benadryl) 50 mg Q6H PRN ORAL Itching 02/15/19 08:15 02/18/19 08:14 02/16/19 00:11 Furosemide (Lasix) 40 mg EVERY 12 HOURS IV 02/15/19 09:00 03/17/19 08:59 02/16/19 09:10 Heparin Sodium/ Dextrose 500 ml @ 35.725 mls/ hr ADJUST PER PROTOCOL IV 02/16/19 05:15 03/18/19 05:14 02/16/19 05:15 Lisinopril (Zestril) 5 mg BID ORAL 02/15/19 09:00 03/17/19 08:59 02/16/19 09:10 Morphine Sulfate (Morphine Sulfate) 2 mg Q4H PRN IVP PAIN 4-10 02/14/19 18:00 02/21/19 17:59 02/15/19 17:24 Rosa Goodwin MD Feb 16, 2019 11:50
--- NOTE | 2019-02-16 11:54 | History and Physical Report ---
DATE OF ADMISSION: 02/14/2019 DATE AND TIME SEEN: 02/15/2019, approximate time is 2 p.m. CONSULTANTS: 1. Severino Rojas M.D. 2. Rosa Goodwin M.D. CHIEF COMPLAINT: Shortness of breath. BRIEF HISTORY: This is a 53-year-old female, who lives at home, presented with a week of increased shortness of breath. She came to [place] last night, diagnosed with CHF exacerbation with elevated troponin, admitted to telemetry for further care. Currently, slight short of breath in bed, calm, no complaint. REVIEW OF SYSTEMS: No chest pain. Slight short of breath. No nausea, vomiting, or diarrhea. PAST MEDICAL HISTORY: Include CHF and malnutrition. PAST SURGICAL HISTORY: Pacemaker and hysterectomy. ALLERGIES: Denies. MEDICATIONS: Include magnesium, potassium, lisinopril, furosemide, diphenhydramine, atorvastatin, and morphine. SOCIAL HISTORY: No smoking. Occasional alcohol. Positive marijuana use. OBJECTIVE: GENERAL: Calm in bed, slight short of breath. Oriented x3, in no acute distress. VITAL SIGNS: Temperature is 97, pulse 107, respirations 20, and blood pressure 144/104. CARDIOVASCULAR: No murmurs. LUNGS: Poor air exchange. ABDOMEN: Bowel sounds distant. EXTREMITIES: No clubbing, cyanosis, or edema. NEUROLOGIC: The patient moves all extremities, slightly weak. LABORATORY AND DIAGNOSTIC DATA: Labs at this time show CBC is normal. BMP showed potassium 3.4, magnesium 1.6. Troponin 0.065 to 0.074 to . BNP is 8090. Albumin 2.8. ASSESSMENT: 1. Congestive heart failure. 2. Shortness of breath. 3. Malnutrition. 4. Non-ST elevation myocardial infarction. 5. Drug abuse. 6. Hypertension. PLAN: 1. Blood pressure and pain control. 2. Dietary followup. 3. Detox. 4. Cardiology followup. 5. O2 and pulmonary treatment as needed. 6. Pulmonary evaluation. 7. PT and dietary evaluation. 8. CBC and BMP in the morning. Alan Perez D.O. DR: VIELKA JOB#: [id number] CC:
--- NOTE | 2019-02-16 11:54 | Consultation ---
DATE OF CONSULTATION: 02/14/2019 CARDIOLOGY CONSULTATION CONSULTING PHYSICIAN: Severino Rojas M.D. REFERRING PHYSICIAN: Alan Perez D.O. REASON FOR REFERRAL: History of congestive heart failure. HISTORY OF PRESENT ILLNESS: This is a 53-year-old female with history of congestive heart failure apparently diagnosed approximately one and a half to two years ago at [facility]. She did eventually have a stress test showing ejection fraction was low, subsequently has had what she thinks is a pacemaker not a defibrillator implanted in April 2017. Episodes of shortness of breath intermittently. Most recently, when she has been feeling hot, she has been drinking a lot of water and ice and has been having increasing shortness of breath and leg swelling over the past few days. Saw her primary care physician a week ago, got some instructions to increase her diuretics, but that has not been helping her and she finally presented to the emergency room. She uses one pillow at night. She has had a hard time falling asleep. She does not realize and do not know why. She has exertional dyspnea. She does not have any chest pain or pressure. There is no dizziness or lightheadedness on standing. There is no heart pounding or palpitations. PAST MEDICAL HISTORY: Positive for high blood pressure, high cholesterol, and congestive heart failure and irregular heart rhythm although she is not on any anticoagulation. No history of heart attack, cancer, stroke, hepatitis, tuberculosis, asthma, emphysema. No ulcers, kidney problems, liver problems, thyroid problems, anemia, arthritis, HIV/AIDS or blood clots or gynecological issues. ALLERGIES: She is not allergic to any medications. SOCIAL HISTORY: She currently quit smoking approximately two months ago. Social drinking of alcoholic beverages. Occasional marijuana use. Denies any other drug use. REVIEW OF SYSTEMS: GASTROINTESTINAL: No nausea, vomiting, diarrhea, or constipation. GENITOURINARY: Denies. PULMONARY: Some coughing. CONSTITUTIONAL: Negative although she feels hot all the time. PHYSICAL EXAMINATION: GENERAL: Shows to be elderly middle-aged female, in no respiratory distress. She is sitting upright. NECK: Supple. No jugular venous distention. LUNGS: Show some crackles noted at the bases. CARDIAC: Regular rate and rhythm. No heaves, thrills, gallops, or rubs. ABDOMEN: Soft, nontender. Positive bowel sounds. EXTREMITIES: She has trace edema in lower extremities bilaterally. LABORATORY AND DIAGNOSTIC DATA: A chest x-ray showed pulmonary vascular congestion without airspace consolidation. Mild cardiomegaly is noted. Her blood tests, white count 6, hemoglobin 13.3, and platelet count of 337. Sodium is 147, potassium 3.8, chloride 108, bicarb 27, BUN 15, creatinine 1.0, glucose of 116. ProBNP of 1090. Troponin 0.065. Albumin 2.8. Her urinalysis is 0 to 2 wbc's, 5 to 10 rbc's, no other abnormalities. ASSESSMENT: 1. Congestive heart failure acute exacerbation, chronic systolic failure. 2. Hypertension. 3. Hyperlipidemia. 4. Tobacco use disorder. PLAN: Dr. Perez, this patient was seen in cardiac consultation. The patient does admit to being noncompliant herself with fluid restriction. She has been tried to be more compliant with sodium restriction although she is not aware of the food that she needs to avoid, which we discussed. It is recommended that she monitor her fluid intake and limit her oral intake and salt intake and to be compliant with medication to prevent recurrent admission to the hospital for congestive heart failure. She should be continued on medications for congestive heart failure including CASANDRA inhibitors, diuretics, and possibly some beta-blockers. The rest of her medications need to be obtained. Nevertheless, she requires those. Cardiac enzymes will be repeated. An echocardiogram will be repeated as well. Severino Rojas M.D. DR: CRISTI JOB#: [id number] CC:
[2019-02-16 12:00] VITALS: BP 139/100
--- NOTE | 2019-02-16 14:57 | NUR ---
*-* INSURANCE *-* ALL AVAILABLE CLINICALS AND REVIEWS HAVE BEEN FAXED TO: Leanna PEPPER: Yolie ref#[id number] ph#[phone] cell#[phone] fax#[phone] & [employer] No CM or tracking# assigned yet PH#[phone]
[2019-02-16 16:00] VITALS: BP 138/98
--- NOTE | 2019-02-16 19:27 | Cardiology Progress Note ---
Assessment/Plan Assessment/Plan chf acute systolic cm s/p icd New diagnosis of LV thrombus will need anticoagulation heparin to Coumadin to start to day Coumadin teaching provided pt indicates has recieved paperwork not read yet encoaurge to read dariela continue chf treatment i have reviewed srikanth of [facility] echo image mys elf d/w pt regardin lv thombus and risk of embolism and treatmen with anticoagualtion increase acei resuem coreg Subjective Cardiovascular: Denies: chest pain, lightheadedness, palpitations Respiratory: Reports: shortness of breath - mild Gastrointestinal/Abdominal: Denies: abdominal pain, tarry stools, blood in stool Genitourinary: Denies: burning Objective Last 24 Hour Vital Signs Date Time Temp Pulse Resp B/P (MAP) Pulse Ox O2 Delivery O2 Flow Rate FiO2 02/16/19 17:24 138/98 02/16/19 16:00 115 02/16/19 16:00 97.0 114 20 138/98 (111) 95 02/16/19 12:00 97.5 110 21 139/100 (113) 93 02/16/19 12:00 106 02/16/19 09:32 119 22 95 Nasal Cannula 2.0 28 02/16/19 09:32 94 Nasal Cannula 2.0 28 02/16/19 09:10 137/100 02/16/19 08:31 Room Air 02/16/19 08:00 98.6 115 21 137/100 (112) 93 02/16/19 08:00 108 02/16/19 08:00 98.6 115 26 137/102 (114) 95 02/16/19 04:00 97.9 103 21 149/100 (116) 93 02/16/19 04:00 108 02/16/19 02:42 107 20 98 Nasal Cannula 2.0 28 108 20 90 02/16/19 00:00 97.5 109 19 146/101 (116) 91 02/16/19 00:00 108 02/15/19 21:00 Room Air 02/15/19 20:00 113 02/15/19 20:00 98.1 105 18 137/90 (106) 98 General Appearance: no apparent distress, alert Neck: supple Cardiovascular: normal rate Respiratory/Chest: lungs clear Abdomen: normal bowel sounds, non tender, soft Extremities: no swelling Intake and Output 02/15/19 02/16/19 18:59 06:59 Intake Total 360 ml Balance 360 ml Intake Oral 360 ml # Voids 3 3 Laboratory Tests Test 02/15/19 19:50 02/15/19 21:17 02/16/19 04:00 02/16/19 11:40 Troponin I 0.243 ng/mL (0.000-0.056) White Blood Count 7.8 K/UL (4.8-10.8) 7.9 K/UL (4.8-10.8) Red Blood Count 5.02 M/UL (4.20-5.40) 4.86 M/UL (4.20-5.40) Hemoglobin 13.3 G/DL (12.0-16.0) 13.0 G/DL (12.0-16.0) Hematocrit 41.6 % (37.0-47.0) 39.9 % (37.0-47.0) Mean Corpuscular Volume 83 FL (80-99) 82 FL (80-99) Mean Corpuscular Hemoglobin 26.4 PG (27.0-31.0) L 26.8 PG (27.0-31.0) L Mean Corpuscular Hemoglobin Concent 31.9 G/DL (32.0-36.0) L 32.7 G/DL (32.0-36.0) Red Cell Distribution Width 14.4 % (11.6-14.8) 14.6 % (11.6-14.8) Platelet Count 340 K/UL (150-450) 320 K/UL (150-450) Mean Platelet Volume 6.8 FL (6.5-10.1) 6.5 FL (6.5-10.1) Neutrophils (%) (Auto) 72.2 % (45.0-75.0) 77.0 % (45.0-75.0) H Lymphocytes (%) (Auto) 19.8 % (20.0-45.0) L 15.7 % (20.0-45.0) L Monocytes (%) (Auto) 3.5 % (1.0-10.0) 3.2 % (1.0-10.0) Eosinophils (%) (Auto) 2.8 % (0.0-3.0) 2.8 % (0.0-3.0) Basophils (%) (Auto) 1.7 % (0.0-2.0) 1.3 % (0.0-2.0) Activated Partial Thromboplast Time 24 SEC (23-33) 42 SEC (23-33) H 114 SEC (23-33) H Sodium Level 142 MMOL/L (136-145) Potassium Level 3.6 MMOL/L (3.5-5.1) Chloride Level 106 MMOL/L (98-107) Carbon Dioxide Level 29 MMOL/L (21-32) Anion Gap 7 mmol/L (5-15) Blood Urea Nitrogen 19 mg/dL (7-18) H Creatinine 1.0 MG/DL (0.55-1.30) Estimat Glomerular Filtration Rate > 60 mL/min (>60) Glucose Level 112 MG/DL (74-106) H Calcium Level 8.2 MG/DL (8.5-10.1) L Total Bilirubin 1.1 MG/DL (0.2-1.0) H Direct Bilirubin 0.3 MG/DL (0.0-0.3) Aspartate Amino Transf (AST/SGOT) 20 U/L (15-37) Alanine Aminotransferase (ALT/SGPT) 42 U/L (12-78) Alkaline Phosphatase 71 U/L (46-116) Pro-B-Type Natriuretic Peptide 6469 pg/mL (0-125) H Total Protein 5.7 G/DL (6.4-8.2) L Albumin 2.7 G/DL (3.4-5.0) L Globulin 3.0 g/dL Albumin/Globulin Ratio 0.9 (1.0-2.7) L Test 02/16/19 18:20 Activated Partial Thromboplast Time 52 SEC (23-33) H Severino Rojas MD Feb 16, 2019 19:27
--- NOTE | 2019-02-16 19:29 | NUR ---
HAND-OFF: Report given to LOLI Lopez.
--- NOTE | 2019-02-16 19:30 | NUR ---
NURSE NOTES: Received pt from LOLI Richards. Pt awake, alert, and talkative. Bed in lowest position. Call light within reach. Will continue to monitor.
[2019-02-16] MEDS: Heparin 25,000u/D5W 500ml 500 ML IV SCH (19:45)
[2019-02-16 19:48] LABS: INR 1.2 (0.9-1.1)
[2019-02-16 20:00] VITALS: BP 149/99
[2019-02-16] MEDS ORDERED: Warfarin Sodium 5mg ORAL SCH (20:00)
[2019-02-16] MEDS: Carvedilol 6.25mg Tab ORAL SCH (20:29)
[2019-02-16] MEDS: Atorvastatin 20mg tab ORAL SCH (20:30)
[2019-02-17] VITALS: BP 103/57
[2019-02-17 03:13] LABS: BASOPHILS % (AUTO) 1.4 % (0.0-2.0); EOSINOPHILS % (AUTO) 1.5 % (0.0-3.0); HEMOGLOBIN 12.6 G/DL (12.0-16.0); LYMPHOCYTES % (AUTO) 16.6 % (20.0-45.0); MEAN CORPUSCULAR VOLUME 82 FL (80-99); MONOCYTES % (AUTO) 5.3 % (1.0-10.0); NEUTROPHILS % (AUTO) 75.3 % (45.0-75.0); PLATELET COUNT 330 K/UL (150-450); RED BLOOD COUNT 4.77 M/UL (4.20-5.40); RED CELL DISTRIBUTION WIDTH 14.2 % (11.6-14.8); WHITE BLOOD COUNT 8.2 K/UL (4.8-10.8)
[2019-02-17 03:22] LABS: ANION GAP 9 mmol/L (5-15); BLOOD UREA NITROGEN 17 mg/dL (7-18); CALCIUM 8.6 MG/DL (8.5-10.1); CARBON DIOXIDE 31 MMOL/L (21-32); CHLORIDE 107 MMOL/L (98-107); POTASSIUM 3.3 MMOL/L (3.5-5.1); SODIUM 146 MMOL/L (136-145)
[2019-02-17 03:27] LABS: INR 1.2 (0.9-1.1)
[2019-02-17 04:00] VITALS: BP 114/60
[2019-02-17] MEDS: Heparin 25,000u/D5W 500ml 500 ML IV SCH ×2 (05:55→23:06)
--- NOTE | 2019-02-17 07:17 | NUR ---
NURSE NOTES: Nurse report given by LOLI Lopez. Patient's sleeping in bed but easily awake. AO x 4, denies pain, no s/s of distress or SOB. Bed low and locked, call light within reach. satellite project site monitor is applied, side rails x 2. IV is running heparin drip, no s/s of tenderness, infiltration, it's patent and asymptomatic. All needs met. Will continue to monitor.
--- NOTE | 2019-02-17 07:17 | NUR ---
HAND-OFF: Report given to LOLI Harrington. Pt stable.
[2019-02-17 07:58] VITALS: BP 125/95
[2019-02-17] MEDS: Lisinopril 10mg tab ORAL SCH ×2 (08:28→18:44)
[2019-02-17] MEDS: Carvedilol 6.25mg Tab ORAL SCH ×2 (08:32→20:46)
--- NOTE | 2019-02-17 09:38 | Pulmonology Progress Note ---
Assessment/Plan Assessment/Plan ASSESSMENT Acute systolic CHF exacerbation elevated troponin, possible NSTEMI New LV thrombus Cardiomyopathy with EF 25% Severe pulmonary hypertension Bronchitis Electrolyte abnormalities ( hypo K, hypo Mg) PLAN OF CARE tele diuresis BB , CASANDRA Heparin gtt with bridge to Coumadin, INR 1.2 statin O2, HHN PRN antitussive as needed pain management supportive care K replaced, Mg stable case discussed and evaluated by supervising physician Subjective Allergies: Coded Allergies: No Known Allergies (Unverified , 10/19/16) Subjective denies chest pain, occ SOB on RA pulse ox stable K-3.3 Objective Last 24 Hour Vital Signs Date Time Temp Pulse Resp B/P (MAP) Pulse Ox O2 Delivery O2 Flow Rate FiO2 02/17/19 09:01 Room Air 02/17/19 08:32 112 125/95 02/17/19 08:28 125/95 02/17/19 08:05 95 Nasal Cannula 2.0 28 02/17/19 08:05 112 22 96 Nasal Cannula 2.0 28 02/17/19 08:00 102 02/17/19 07:58 97.5 96 20 125/95 (105) 95 02/17/19 04:00 97.7 109 20 114/60 (78) 94 02/17/19 04:00 93 02/17/19 00:00 97.6 104 20 103/57 (72) 92 02/17/19 00:00 102 02/16/19 21:00 Room Air 02/16/19 20:29 109 149/99 02/16/19 20:23 109 20 99 Nasal Cannula 2.0 28 111 22 98 02/16/19 20:00 113 02/16/19 20:00 97.0 111 18 149/99 (116) 96 02/16/19 19:54 95 Nasal Cannula 2.0 28 02/16/19 19:53 114 20 95 Nasal Cannula 2.0 28 02/16/19 17:24 138/98 02/16/19 16:00 115 02/16/19 16:00 97.0 114 20 138/98 (111) 95 02/16/19 12:00 97.5 110 21 139/100 (113) 93 02/16/19 12:00 106 Intake and Output 02/16/19 02/17/19 19:00 07:00 Intake Total 240 ml 240 ml Balance 240 ml 240 ml Intake Oral 240 ml 240 ml # Voids 2 3 General Appearance: no acute distress HEENT: normocephalic, atraumatic, anicteric, mucous membranes moist Respiratory/Chest: lungs clear, no respiratory distress, no accessory muscle use Cardiovascular: tachycardia - WST low tachy 100-110 Abdomen: normal bowel sounds, soft, non tender Neurologic/Psychiatric: no motor/sensory deficits, alert, oriented x 3, responsive, normal mood/affect Musculoskeletal: normal muscle bulk Laboratory Tests 02/16/19 11:40: Activated Partial Thromboplast Time 114H 02/16/19 18:20: Activated Partial Thromboplast Time 52H, Prothrombin Time 12.2H, Prothromb Time International Ratio 1.2H 02/17/19 02:35: Activated Partial Thromboplast Time 78H, Prothrombin Time 12.2H, Prothromb Time International Ratio 1.2H, White Blood Count 8.2, Red Blood Count 4.77, Hemoglobin 12.6, Hematocrit 39.0, Mean Corpuscular Volume 82, Mean Corpuscular Hemoglobin 26.3L, Mean Corpuscular Hemoglobin Concent 32.2, Red Cell Distribution Width 14.2, Platelet Count 330, Mean Platelet Volume 6.9, Neutrophils (%) (Auto) 75.3H, Lymphocytes (%) (Auto) 16.6L, Monocytes (%) (Auto ) 5.3, Eosinophils (%) (Auto) 1.5, Basophils (%) (Auto) 1.4, Sodium Level 146H, Potassium Level 3.3L, Chloride Level 107, Carbon Dioxide Level 31, Anion Gap 9, Blood Urea Nitrogen 17, Creatinine 1.0, Estimat Glomerular Filtration Rate > 60 , Glucose Level 110H, Calcium Level 8.6 Current Medications Medications (Trade) Dose Ordered Sig/Tristan Route PRN Reason Start Time Stop Time Status Last Admin Dose Admin Albuterol/ Ipratropium (Albuterol/ Ipratropium) 3 ml Q6H PRN HHN sob 02/16/19 02:30 02/21/19 02:29 02/16/19 20:20 Atorvastatin Calcium (Lipitor) 40 mg BEDTIME ORAL 02/14/19 21:00 03/16/19 20:59 02/16/19 20:30 Carvedilol (Coreg) 6.25 mg EVERY 12 HOURS ORAL 02/16/19 21:00 03/18/19 20:59 02/17/19 08:32 Diphenhydramine HCl (Benadryl) 50 mg Q6H PRN ORAL Itching 02/15/19 08:15 02/18/19 08:14 02/16/19 00:11 Furosemide (Lasix) 40 mg EVERY 12 HOURS IV 02/15/19 09:00 03/17/19 08:59 02/17/19 08:28 Heparin Sodium/ Dextrose 500 ml @ 34.101 mls/ hr ADJUST PER PROTOCOL IV 02/16/19 19:45 03/18/19 19:44 02/17/19 05:55 Lisinopril (Zestril) 10 mg BID ORAL 02/17/19 09:00 03/19/19 08:59 02/17/19 08:28 Morphine Sulfate (Morphine Sulfate) 2 mg Q4H PRN IVP PAIN 4-10 02/14/19 18:00 02/21/19 17:59 02/15/19 17:24 Warfarin Sodium (Coumadin per pharmacy) 1 ea DAILY PRN MISC Per rx protocol 02/16/19 19:30 03/18/19 19:29 Berta Amaya NP Feb 17, 2019 09:38
[2019-02-17 12:00] VITALS: BP 121/75
[2019-02-17] MEDS: Morphine Sulfate 2mg/ml Inj(IV/IM USE ONLY) IVP PRN (14:48)
--- NOTE | 2019-02-17 15:06 | General Progress Note ---
Assessment/Plan Problem List: (1) HTN (hypertension) ICD Codes: I10 - Essential (primary) hypertension SNOMED: 23568488 (2) Non-ST elevation (NSTEMI) myocardial infarction ICD Codes: I21.4 - Non-ST elevation (NSTEMI) myocardial infarction SNOMED: 48624370 (3) Elevated troponin ICD Codes: R79.89 - Other specified abnormal findings of blood chemistry SNOMED: 794146390, 009981663, 996491849 (4) Acute exacerbation of CHF (congestive heart failure) ICD Codes: I50.9 - Heart failure, unspecified SNOMED: 326211077, 74579721658588, 967366150 Status: stable, progressing Assessment/Plan: pt diet pain control cardio f/u cbc bmp am Subjective Constitutional: Reports: weakness Respiratory: Reports: shortness of breath Allergies: Coded Allergies: No Known Allergies (Unverified , 10/19/16) All Systems: reviewed and negative except above Subjective o2nc calm Objective Last 24 Hour Vital Signs Date Time Temp Pulse Resp B/P (MAP) Pulse Ox O2 Delivery O2 Flow Rate FiO2 02/17/19 12:00 97.9 92 20 121/75 (90) 95 02/17/19 09:01 Room Air 02/17/19 08:32 112 125/95 02/17/19 08:28 125/95 02/17/19 08:05 95 Nasal Cannula 2.0 28 02/17/19 08:05 112 22 96 Nasal Cannula 2.0 28 02/17/19 08:00 102 02/17/19 07:58 97.5 96 20 125/95 (105) 95 02/17/19 04:00 97.7 109 20 114/60 (78) 94 02/17/19 04:00 93 02/17/19 00:00 97.6 104 20 103/57 (72) 92 02/17/19 00:00 102 02/16/19 21:00 Room Air 02/16/19 20:29 109 149/99 02/16/19 20:23 109 20 99 Nasal Cannula 2.0 28 111 22 98 02/16/19 20:00 113 02/16/19 20:00 97.0 111 18 149/99 (116) 96 02/16/19 19:54 95 Nasal Cannula 2.0 28 02/16/19 19:53 114 20 95 Nasal Cannula 2.0 28 02/16/19 17:24 138/98 02/16/19 16:00 115 02/16/19 16:00 97.0 114 20 138/98 (111) 95 Intake and Output 02/16/19 02/17/19 19:00 07:00 Intake Total 240 ml 240 ml Balance 240 ml 240 ml Intake Oral 240 ml 240 ml # Voids 2 3 Laboratory Tests 02/16/19 18:20: Prothrombin Time 12.2H, Prothromb Time International Ratio 1.2H, Activated Partial Thromboplast Time 52H 02/17/19 02:35: Prothrombin Time 12.2H, Prothromb Time International Ratio 1.2H, Activated Partial Thromboplast Time 78H, White Blood Count 8.2, Red Blood Count 4.77, Hemoglobin 12.6, Hematocrit 39.0, Mean Corpuscular Volume 82, Mean Corpuscular Hemoglobin 26.3L, Mean Corpuscular Hemoglobin Concent 32.2, Red Cell Distribution Width 14.2, Platelet Count 330, Mean Platelet Volume 6.9, Neutrophils (%) (Auto) 75.3H, Lymphocytes (%) (Auto) 16.6L, Monocytes (%) (Auto ) 5.3, Eosinophils (%) (Auto) 1.5, Basophils (%) (Auto) 1.4, Sodium Level 146H, Potassium Level 3.3L, Chloride Level 107, Carbon Dioxide Level 31, Anion Gap 9, Blood Urea Nitrogen 17, Creatinine 1.0, Estimat Glomerular Filtration Rate > 60 , Glucose Level 110H, Calcium Level 8.6, Magnesium Level 1.9 Height (Feet): 5 Height (Inches): 6.00 Weight (Pounds): 182 General Appearance: lethargic EENT: normal ENT inspection Neck: normal alignment Cardiovascular: normal peripheral pulses, normal rate, regular rhythm Respiratory/Chest: chest wall non-tender, lungs clear, normal breath sounds Abdomen: normal bowel sounds, non tender, soft Extremities: normal inspection Edema: no edema noted Arm (L), no edema noted Arm (R), no edema noted Leg (L), no edema noted Leg (R), no edema noted Pedal (L), no edema noted Pedal (R), no edema noted Generalized Neurologic: responsive, motor weakness Skin: normal pigmentation, warm/dry Perez,Alan Chi-Gina Feb 17, 2019 15:06
[2019-02-17 16:00] VITALS: BP 119/87
[2019-02-17] MEDS ORDERED: Warfarin Sodium 5mg ORAL SCH (17:00)
--- NOTE | 2019-02-17 19:30 | NUR ---
HAND-OFF: Report given to LOLI Carlton. Patient's stable. Plan of care endorsed.
--- NOTE | 2019-02-17 19:49 | NUR ---
NURSE NOTES: Received report from LOLI Harrington. Patient is awake and responsive, A/O x4. Breathing regular with no distress noted at this time. Patient denies any pain or discomfort at this time. Bed is in lowest position, breaks engaged, call light within reach. Patient's IV is intact, running Heparin at prescribed rate. Will continue to monitor.
[2019-02-17 20:00] VITALS: BP 125/92
[2019-02-17] MEDS: Atorvastatin 20mg tab ORAL SCH (20:47)
--- NOTE | 2019-02-17 22:44 | Cardiology Progress Note ---
Assessment/Plan Assessment/Plan CHF, apical thrombus on IV heparin BV ICD no changes, will follow labs tomorrow Subjective Subjective the patient reports feeling Ok, dyspnea is better, family at the bedside Objective Last 24 Hour Vital Signs Date Time Temp Pulse Resp B/P (MAP) Pulse Ox O2 Delivery O2 Flow Rate FiO2 02/17/19 20:46 104 125/92 02/17/19 20:26 97 20 96 Nasal Cannula 2.0 28 02/17/19 20:26 96 Nasal Cannula 2.0 28 02/17/19 18:44 119/87 02/17/19 16:00 94 02/17/19 16:00 97.2 100 20 119/87 (98) 99 02/17/19 12:00 97 02/17/19 12:00 97.9 92 20 121/75 (90) 95 02/17/19 09:01 Room Air 02/17/19 08:32 112 125/95 02/17/19 08:28 125/95 02/17/19 08:05 95 Nasal Cannula 2.0 28 02/17/19 08:05 112 22 96 Nasal Cannula 2.0 28 02/17/19 08:00 102 02/17/19 07:58 97.5 96 20 125/95 (105) 95 02/17/19 04:00 97.7 109 20 114/60 (78) 94 02/17/19 04:00 93 02/17/19 00:00 97.6 104 20 103/57 (72) 92 02/17/19 00:00 102 General Appearance: no apparent distress EENT: PERRL/EOMI Neck: JVD Rhythm: other - BV pacing Cardiovascular: regular rhythm Respiratory/Chest: crackles/rales Abdomen: soft Extremities: no swelling Intake and Output 02/16/19 02/17/19 18:59 06:59 Intake Total 240 ml 240 ml Balance 240 ml 240 ml Intake Oral 240 ml 240 ml # Voids 2 3 Laboratory Tests Test 02/17/19 02:35 White Blood Count 8.2 K/UL (4.8-10.8) Red Blood Count 4.77 M/UL (4.20-5.40) Hemoglobin 12.6 G/DL (12.0-16.0) Hematocrit 39.0 % (37.0-47.0) Mean Corpuscular Volume 82 FL (80-99) Mean Corpuscular Hemoglobin 26.3 PG (27.0-31.0) L Mean Corpuscular Hemoglobin Concent 32.2 G/DL (32.0-36.0) Red Cell Distribution Width 14.2 % (11.6-14.8) Platelet Count 330 K/UL (150-450) Mean Platelet Volume 6.9 FL (6.5-10.1) Neutrophils (%) (Auto) 75.3 % (45.0-75.0) H Lymphocytes (%) (Auto) 16.6 % (20.0-45.0) L Monocytes (%) (Auto) 5.3 % (1.0-10.0) Eosinophils (%) (Auto) 1.5 % (0.0-3.0) Basophils (%) (Auto) 1.4 % (0.0-2.0) Prothrombin Time 12.2 SEC (9.30-11.50) H Prothromb Time International Ratio 1.2 (0.9-1.1) H Activated Partial Thromboplast Time 78 SEC (23-33) H Sodium Level 146 MMOL/L (136-145) H Potassium Level 3.3 MMOL/L (3.5-5.1) L Chloride Level 107 MMOL/L (98-107) Carbon Dioxide Level 31 MMOL/L (21-32) Anion Gap 9 mmol/L (5-15) Blood Urea Nitrogen 17 mg/dL (7-18) Creatinine 1.0 MG/DL (0.55-1.30) Estimat Glomerular Filtration Rate > 60 mL/min (>60) Glucose Level 110 MG/DL (74-106) H Calcium Level 8.6 MG/DL (8.5-10.1) Magnesium Level 1.9 MG/DL (1.8-2.4) Yasmin Briseno MD Feb 17, 2019 22:44
--- NOTE | 2019-02-17 22:50 | NUR ---
NURSE NOTES: Notified Doctor Bob that patient had runs of V-tach and that AICD took over. Doctor provided with new orders. Orders noted and carried out.
[2019-02-18] VITALS: BP 124/94
[2019-02-18 04:00] VITALS: BP 120/80
[2019-02-18 04:19] LABS: BASOPHILS % (AUTO) 1.7 % (0.0-2.0); EOSINOPHILS % (AUTO) 3.1 % (0.0-3.0); HEMATOCRIT 38.8 % (37.0-47.0); HEMOGLOBIN 12.4 G/DL (12.0-16.0); LYMPHOCYTES % (AUTO) 17.9 % (20.0-45.0); MEAN CORPUSCULAR VOLUME 82 FL (80-99); MONOCYTES % (AUTO) 5.8 % (1.0-10.0); NEUTROPHILS % (AUTO) 71.5 % (45.0-75.0); PLATELET COUNT 320 K/UL (150-450); RED BLOOD COUNT 4.76 M/UL (4.20-5.40); RED CELL DISTRIBUTION WIDTH 14.1 % (11.6-14.8); WHITE BLOOD COUNT 7.4 K/UL (4.8-10.8)
[2019-02-18 04:31] LABS: INR 1.1 (0.9-1.1)
[2019-02-18 04:40] LABS: ALANINE AMINOTRANSFERASE 31 U/L (12-78); ALBUMIN 2.6 G/DL (3.4-5.0); ALBUMIN/GLOBULIN RATIO 0.9 (1.0-2.7); ALKALINE PHOSPHATASE 63 U/L (46-116); ANION GAP 8 mmol/L (5-15); ASPARTATE AMINO TRANSFERASE 14 U/L (15-37); BILIRUBIN,TOTAL 1.2 MG/DL (0.2-1.0); BLOOD UREA NITROGEN 18 mg/dL (7-18); CALCIUM 8.6 MG/DL (8.5-10.1); CARBON DIOXIDE 30 MMOL/L (21-32); CHLORIDE 106 MMOL/L (98-107); POTASSIUM 4.2 MMOL/L (3.5-5.1); SODIUM 144 MMOL/L (136-145)
[2019-02-18 04:41] LABS: BILIRUBIN,DIRECT 0.2 MG/DL (0.0-0.3)
[2019-02-18] MEDS ORDERED: Heparin 5000 units/ml inj IV SCH (05:00)
[2019-02-18] MEDS: Heparin 25,000u/D5W 500ml 500 ML IV SCH ×2 (05:12→14:28)
--- NOTE | 2019-02-18 07:08 | NUR ---
NURSE NOTES: Report given to LOLI Harrington. Plan of care endorsed, patient is in stable condition.
--- NOTE | 2019-02-18 07:15 | NUR ---
NURSE NOTES: Nurse report given by LOLI Carlton. Patient's sleeping in bed but easily awaken. Denies pain, AO x4, no s/s of distress or SOB. Bed low and locked, call light within reach, side rails x 2. IV is running fluid, no s/s of infiltration or tenderness. Will continue to monitor.
--- NOTE | 2019-02-18 07:42 | Pulmonology Progress Note ---
Assessment/Plan Assessment/Plan ASSESSMENT Acute systolic CHF exacerbation elevated troponin, possible NSTEMI New LV/apical thrombus Cardiomyopathy with EF 25% Severe pulmonary hypertension Bronchitis Electrolyte abnormalities ( hypo K, hypo Mg) PLAN OF CARE tele diuresis BB , CASANDRA Heparin gtt with bridge to Coumadin, INR 1.1 statin O2, HHN PRN antitussive as needed pain management supportive care K stable after replacement, Mg stable case discussed and evaluated by supervising physician Subjective Allergies: Coded Allergies: No Known Allergies (Unverified , 10/19/16) Subjective denies chest pain, occ SOB on RA pulse ox stable INR still subther Objective Last 24 Hour Vital Signs Date Time Temp Pulse Resp B/P (MAP) Pulse Ox O2 Delivery O2 Flow Rate FiO2 02/18/19 04:00 94 02/18/19 04:00 97.4 94 19 120/80 (93) 98 02/18/19 00:00 97.9 89 18 124/94 (104) 98 02/18/19 00:00 92 02/17/19 21:00 Room Air 02/17/19 20:46 104 125/92 02/17/19 20:26 97 20 96 Nasal Cannula 2.0 28 02/17/19 20:26 96 Nasal Cannula 2.0 28 02/17/19 20:00 121 02/17/19 20:00 97.5 104 19 125/92 (103) 98 02/17/19 18:44 119/87 02/17/19 16:00 94 02/17/19 16:00 97.2 100 20 119/87 (98) 99 02/17/19 12:00 97 02/17/19 12:00 97.9 92 20 121/75 (90) 95 02/17/19 09:01 Room Air 02/17/19 08:32 112 125/95 02/17/19 08:28 125/95 02/17/19 08:05 95 Nasal Cannula 2.0 28 02/17/19 08:05 112 22 96 Nasal Cannula 2.0 28 02/17/19 08:00 102 02/17/19 07:58 97.5 96 20 125/95 (105) 95 Intake and Output 02/17/19 02/18/19 19:00 07:00 Intake Total 1369.212 ml 601.955 ml Balance 1369.212 ml 601.955 ml Intake Oral 960 ml 360 ml IV Total 409.212 ml 241.955 ml # Voids 6 Objective General Appearance: no acute distress HEENT: normocephalic, atraumatic, anicteric, mucous membranes moist Respiratory/Chest: lungs clear, no respiratory distress, no accessory muscle use, left sided AICD Cardiovascular: regular rate , paced rhythm Abdomen: normal bowel sounds, soft, non tender Neurologic/Psychiatric: no motor/sensory deficits, alert, oriented x 3, responsive, normal mood/affect Musculoskeletal: normal muscle bulk Laboratory Tests 02/18/19 04:05: White Blood Count 7.4, Red Blood Count 4.76, Hemoglobin 12.4, Hematocrit 38.8, Mean Corpuscular Volume 82, Mean Corpuscular Hemoglobin 26.1L, Mean Corpuscular Hemoglobin Concent 32.0, Red Cell Distribution Width 14.1, Platelet Count 320, Mean Platelet Volume 6.3L, Neutrophils (%) (Auto) 71.5, Lymphocytes (%) (Auto) 17.9L, Monocytes (%) (Auto) 5.8, Eosinophils (%) (Auto) 3.1H, Basophils (%) ( Auto) 1.7, Prothrombin Time 12.0H, Prothromb Time International Ratio 1.1, Activated Partial Thromboplast Time 61H, Sodium Level 144, Potassium Level 4.2, Chloride Level 106, Carbon Dioxide Level 30, Anion Gap 8, Blood Urea Nitrogen 18 , Creatinine 1.0, Estimat Glomerular Filtration Rate > 60, Glucose Level 105, Calcium Level 8.6, Magnesium Level 1.8, Total Bilirubin 1.2H, Direct Bilirubin 0.2, Aspartate Amino Transf (AST/SGOT) 14L, Alanine Aminotransferase (ALT/SGPT) 31, Alkaline Phosphatase 63, Total Protein 5.6L, Albumin 2.6L, Globulin 3.0, Albumin/Globulin Ratio 0.9L Current Medications Medications (Trade) Dose Ordered Sig/Tristan Route PRN Reason Start Time Stop Time Status Last Admin Dose Admin Albuterol/ Ipratropium (Albuterol/ Ipratropium) 3 ml Q6H PRN HHN sob 02/16/19 02:30 02/21/19 02:29 02/16/19 20:20 Atorvastatin Calcium (Lipitor) 40 mg BEDTIME ORAL 02/14/19 21:00 03/16/19 20:59 02/17/19 20:47 Carvedilol (Coreg) 6.25 mg EVERY 12 HOURS ORAL 02/16/19 21:00 03/18/19 20:59 02/17/19 20:46 Diphenhydramine HCl (Benadryl) 50 mg Q6H PRN ORAL Itching 02/15/19 08:15 02/18/19 08:14 02/16/19 00:11 Furosemide (Lasix) 40 mg EVERY 12 HOURS IV 02/15/19 09:00 03/17/19 08:59 02/17/19 20:47 Heparin Sodium/ Dextrose 500 ml @ 37.349 mls/ hr ADJUST PER PROTOCOL IV 02/18/19 04:45 03/20/19 04:44 02/18/19 05:12 Lisinopril (Zestril) 10 mg BID ORAL 02/17/19 09:00 03/19/19 08:59 02/17/19 18:44 Morphine Sulfate (Morphine Sulfate) 2 mg Q4H PRN IVP PAIN 4-10 02/14/19 18:00 02/21/19 17:59 02/17/19 14:48 Warfarin Sodium (Coumadin per pharmacy) 1 ea DAILY PRN MISC Per rx protocol 02/16/19 19:30 03/18/19 19:29 Berta Amaya NP Feb 18, 2019 07:42
--- NOTE | 2019-02-18 07:54 | General Progress Note ---
Assessment/Plan Problem List: (1) HTN (hypertension) ICD Codes: I10 - Essential (primary) hypertension SNOMED: 83266517 (2) Non-ST elevation (NSTEMI) myocardial infarction ICD Codes: I21.4 - Non-ST elevation (NSTEMI) myocardial infarction SNOMED: 31921135 (3) Elevated troponin ICD Codes: R79.89 - Other specified abnormal findings of blood chemistry SNOMED: 248584485, 160296778, 770753690 (4) Acute exacerbation of CHF (congestive heart failure) ICD Codes: I50.9 - Heart failure, unspecified SNOMED: 968063827, 19760931544573, 420649100 Status: stable, progressing Assessment/Plan: pt diet pain control cardio f/u cbc bmp am Subjective Constitutional: Reports: weakness Respiratory: Reports: shortness of breath Allergies: Coded Allergies: No Known Allergies (Unverified , 10/19/16) All Systems: reviewed and negative except above Subjective o2nc calm Objective Last 24 Hour Vital Signs Date Time Temp Pulse Resp B/P (MAP) Pulse Ox O2 Delivery O2 Flow Rate FiO2 02/18/19 04:00 94 02/18/19 04:00 97.4 94 19 120/80 (93) 98 02/18/19 00:00 97.9 89 18 124/94 (104) 98 02/18/19 00:00 92 02/17/19 21:00 Room Air 02/17/19 20:46 104 125/92 02/17/19 20:26 97 20 96 Nasal Cannula 2.0 28 02/17/19 20:26 96 Nasal Cannula 2.0 28 02/17/19 20:00 121 02/17/19 20:00 97.5 104 19 125/92 (103) 98 02/17/19 18:44 119/87 02/17/19 16:00 94 02/17/19 16:00 97.2 100 20 119/87 (98) 99 02/17/19 12:00 97 02/17/19 12:00 97.9 92 20 121/75 (90) 95 02/17/19 09:01 Room Air 02/17/19 08:32 112 125/95 02/17/19 08:28 125/95 02/17/19 08:05 95 Nasal Cannula 2.0 28 02/17/19 08:05 112 22 96 Nasal Cannula 2.0 28 02/17/19 08:00 102 02/17/19 07:58 97.5 96 20 125/95 (105) 95 Intake and Output 02/17/19 02/18/19 19:00 07:00 Intake Total 1369.212 ml 601.955 ml Balance 1369.212 ml 601.955 ml Intake Oral 960 ml 360 ml IV Total 409.212 ml 241.955 ml # Voids 6 Laboratory Tests 02/18/19 04:05: White Blood Count 7.4, Red Blood Count 4.76, Hemoglobin 12.4, Hematocrit 38.8, Mean Corpuscular Volume 82, Mean Corpuscular Hemoglobin 26.1L, Mean Corpuscular Hemoglobin Concent 32.0, Red Cell Distribution Width 14.1, Platelet Count 320, Mean Platelet Volume 6.3L, Neutrophils (%) (Auto) 71.5, Lymphocytes (%) (Auto) 17.9L, Monocytes (%) (Auto) 5.8, Eosinophils (%) (Auto) 3.1H, Basophils (%) ( Auto) 1.7, Prothrombin Time 12.0H, Prothromb Time International Ratio 1.1, Activated Partial Thromboplast Time 61H, Sodium Level 144, Potassium Level 4.2, Chloride Level 106, Carbon Dioxide Level 30, Anion Gap 8, Blood Urea Nitrogen 18 , Creatinine 1.0, Estimat Glomerular Filtration Rate > 60, Glucose Level 105, Calcium Level 8.6, Magnesium Level 1.8, Total Bilirubin 1.2H, Direct Bilirubin 0.2, Aspartate Amino Transf (AST/SGOT) 14L, Alanine Aminotransferase (ALT/SGPT) 31, Alkaline Phosphatase 63, Total Protein 5.6L, Albumin 2.6L, Globulin 3.0, Albumin/Globulin Ratio 0.9L Height (Feet): 5 Height (Inches): 6.00 Weight (Pounds): 182 General Appearance: lethargic EENT: normal ENT inspection Neck: normal alignment Cardiovascular: normal peripheral pulses, normal rate, regular rhythm Respiratory/Chest: chest wall non-tender, lungs clear, normal breath sounds Abdomen: normal bowel sounds, non tender, soft Extremities: normal inspection Edema: no edema noted Arm (L), no edema noted Arm (R), no edema noted Leg (L), no edema noted Leg (R), no edema noted Pedal (L), no edema noted Pedal (R), no edema noted Generalized Neurologic: responsive, motor weakness Skin: normal pigmentation, warm/dry Alan Perez DO Feb 18, 2019 07:54
[2019-02-18 08:00] VITALS: BP 129/91
[2019-02-18] MEDS: Carvedilol 6.25mg Tab ORAL SCH ×2 (08:29→21:37)
[2019-02-18] MEDS: Lisinopril 10mg tab ORAL SCH ×2 (08:29→17:11)
[2019-02-18 12:00] VITALS: BP 117/97
[2019-02-18 16:00] VITALS: BP 100/73
[2019-02-18] MEDS ORDERED: Warfarin Sodium 7.5mg ORAL ONE (17:00)
--- NOTE | 2019-02-18 17:37 | NUR ---
NURSE NOTES: Patient complained of pain under left breast, aching sensation and pain is 2/10. Denies chest pain, no sharp pain nor pain radiated to shoulders. Lungs sound clear bilateral, heart sounds present with S1 and S2. Patient refused pain medication when offered. Will continue to monitor closely,
--- NOTE | 2019-02-18 19:40 | NUR ---
NURSE NOTES: Received report from LOLI Harrington. Patient is in bed, awake and responsive, A/O x4. Breathing regular with no distress noted at this time. Patient denies any CP or discomfort at this time. Patient's IV is intact and running Heparin at prescribed rate. No s/s of redness or pain noted at the site. Patient's bed is in lowest position, breaks engaged and call light within easy reach at all times. Will continue to monitor.
--- NOTE | 2019-02-18 19:41 | NUR ---
HAND-OFF: Report given to Ken RN. Plan of care endorsed. Patients' stable.
[2019-02-18 20:00] VITALS: BP 128/76
--- NOTE | 2019-02-18 21:36 | Cardiology Progress Note ---
Assessment/Plan Assessment/Plan CHF, apical thrombus on IV heparin BV ICD doing well, still not therapeutic on coumadin Subjective Subjective feels better, has mild arm and leg cramps, improved Objective Last 24 Hour Vital Signs Date Time Temp Pulse Resp B/P (MAP) Pulse Ox O2 Delivery O2 Flow Rate FiO2 02/18/19 20:00 97.7 94 20 128/76 (93) 96 02/18/19 17:11 100/73 02/18/19 16:00 107 02/18/19 16:00 98.7 103 21 100/73 (82) 97 02/18/19 12:00 97.6 87 20 117/97 (104) 96 02/18/19 12:00 97 02/18/19 09:00 Room Air 02/18/19 08:29 102 129/91 02/18/19 08:29 129/91 02/18/19 08:00 109 02/18/19 08:00 97.3 102 20 129/91 (104) 96 02/18/19 04:00 94 02/18/19 04:00 97.4 94 19 120/80 (93) 98 02/18/19 00:00 97.9 89 18 124/94 (104) 98 02/18/19 00:00 92 General Appearance: mild distress EENT: PERRL/EOMI Neck: JVD Rhythm: NSR Cardiovascular: regular rhythm Respiratory/Chest: crackles/rales Abdomen: soft Extremities: no swelling Intake and Output 02/17/19 02/18/19 19:00 07:00 Intake Total 1369.212 ml 601.955 ml Balance 1369.212 ml 601.955 ml Intake Oral 960 ml 360 ml IV Total 409.212 ml 241.955 ml # Voids 6 Laboratory Tests Test 02/18/19 04:05 02/18/19 11:05 White Blood Count 7.4 K/UL (4.8-10.8) Red Blood Count 4.76 M/UL (4.20-5.40) Hemoglobin 12.4 G/DL (12.0-16.0) Hematocrit 38.8 % (37.0-47.0) Mean Corpuscular Volume 82 FL (80-99) Mean Corpuscular Hemoglobin 26.1 PG (27.0-31.0) L Mean Corpuscular Hemoglobin Concent 32.0 G/DL (32.0-36.0) Red Cell Distribution Width 14.1 % (11.6-14.8) Platelet Count 320 K/UL (150-450) Mean Platelet Volume 6.3 FL (6.5-10.1) L Neutrophils (%) (Auto) 71.5 % (45.0-75.0) Lymphocytes (%) (Auto) 17.9 % (20.0-45.0) L Monocytes (%) (Auto) 5.8 % (1.0-10.0) Eosinophils (%) (Auto) 3.1 % (0.0-3.0) H Basophils (%) (Auto) 1.7 % (0.0-2.0) Prothrombin Time 12.0 SEC (9.30-11.50) H Prothromb Time International Ratio 1.1 (0.9-1.1) Activated Partial Thromboplast Time 61 SEC (23-33) H 89 SEC (23-33) H Sodium Level 144 MMOL/L (136-145) Potassium Level 4.2 MMOL/L (3.5-5.1) Chloride Level 106 MMOL/L (98-107) Carbon Dioxide Level 30 MMOL/L (21-32) Anion Gap 8 mmol/L (5-15) Blood Urea Nitrogen 18 mg/dL (7-18) Creatinine 1.0 MG/DL (0.55-1.30) Estimat Glomerular Filtration Rate > 60 mL/min (>60) Glucose Level 105 MG/DL (74-106) Calcium Level 8.6 MG/DL (8.5-10.1) Magnesium Level 1.8 MG/DL (1.8-2.4) Total Bilirubin 1.2 MG/DL (0.2-1.0) H Direct Bilirubin 0.2 MG/DL (0.0-0.3) Aspartate Amino Transf (AST/SGOT) 14 U/L (15-37) L Alanine Aminotransferase (ALT/SGPT) 31 U/L (12-78) Alkaline Phosphatase 63 U/L (46-116) Total Protein 5.6 G/DL (6.4-8.2) L Albumin 2.6 G/DL (3.4-5.0) L Globulin 3.0 g/dL Albumin/Globulin Ratio 0.9 (1.0-2.7) L Yasmin Briseno MD Feb 18, 2019 21:35
[2019-02-18] MEDS: Atorvastatin 20mg tab ORAL SCH (21:37)
[2019-02-19] VITALS: BP 112/76
[2019-02-19 04:00] VITALS: BP 131/76
[2019-02-19 04:32] LABS: BASOPHILS % (AUTO) 1.8 % (0.0-2.0); EOSINOPHILS % (AUTO) 2.8 % (0.0-3.0); HEMOGLOBIN 12.3 G/DL (12.0-16.0); LYMPHOCYTES % (AUTO) 17.4 % (20.0-45.0); MEAN CORPUSCULAR VOLUME 82 FL (80-99); MONOCYTES % (AUTO) 5.5 % (1.0-10.0); NEUTROPHILS % (AUTO) 72.5 % (45.0-75.0); PLATELET COUNT 340 K/UL (150-450); RED BLOOD COUNT 4.64 M/UL (4.20-5.40); RED CELL DISTRIBUTION WIDTH 14.7 % (11.6-14.8); WHITE BLOOD COUNT 7.2 K/UL (4.8-10.8)
[2019-02-19 04:50] LABS: ANION GAP 5 mmol/L (5-15); BLOOD UREA NITROGEN 16 mg/dL (7-18); CALCIUM 8.6 MG/DL (8.5-10.1); CARBON DIOXIDE 29 MMOL/L (21-32); CHLORIDE 104 MMOL/L (98-107); POTASSIUM 3.8 MMOL/L (3.5-5.1); SODIUM 137 MMOL/L (136-145)
[2019-02-19 04:58] LABS: INR 1.2 (0.9-1.1)
[2019-02-19] MEDS: Heparin 25,000u/D5W 500ml 500 ML IV SCH ×2 (05:53→17:24)
--- NOTE | 2019-02-19 07:31 | NUR ---
HAND-OFF: Report given to LOLI Ruiz. Patient is awake sitting on the edge of the bed. In stable condition. Heparin drip running at 23 units/kg/hr or 37.349 mls/hr.
--- NOTE | 2019-02-19 07:54 | NUR ---
NURSE NOTES: Received patient from Rima Franco. Patient is awake in bed. denies pain or discomfort at this time. Heparin drip @ 23 units/kg/hr or 37.349 mls/hr. last PTT therapeutic at 67. next PTT in am. no active bleeding noted. will monitor patient.
[2019-02-19 08:00] VITALS: BP 137/78
--- NOTE | 2019-02-19 08:05 | General Progress Note ---
Assessment/Plan Problem List: (1) HTN (hypertension) ICD Codes: I10 - Essential (primary) hypertension SNOMED: 05316187 (2) Non-ST elevation (NSTEMI) myocardial infarction ICD Codes: I21.4 - Non-ST elevation (NSTEMI) myocardial infarction SNOMED: 17113421 (3) Elevated troponin ICD Codes: R79.89 - Other specified abnormal findings of blood chemistry SNOMED: 682528919, 291165092, 479582041 (4) Acute exacerbation of CHF (congestive heart failure) ICD Codes: I50.9 - Heart failure, unspecified SNOMED: 785635270, [id number], 143916244 Status: stable, progressing Assessment/Plan: pt diet pain control cardio f/u cbc bmp am dc plan Subjective Constitutional: Reports: weakness Allergies: Coded Allergies: No Known Allergies (Unverified , 10/19/16) All Systems: reviewed and negative except above Subjective o2nc calm Objective Last 24 Hour Vital Signs Date Time Temp Pulse Resp B/P (MAP) Pulse Ox O2 Delivery O2 Flow Rate FiO2 02/19/19 04:00 89 02/19/19 04:00 97.9 94 19 131/76 (94) 100 02/19/19 00:00 98.1 89 18 112/76 (88) 97 02/19/19 00:00 93 02/18/19 21:37 94 128/76 02/18/19 21:00 Room Air 02/18/19 20:00 97.7 94 20 128/76 (93) 96 02/18/19 20:00 98 02/18/19 18:40 98 Nasal Cannula 2.0 28 02/18/19 18:40 97 20 96 Nasal Cannula 2.0 28 02/18/19 17:11 100/73 02/18/19 16:00 107 02/18/19 16:00 98.7 103 21 100/73 (82) 97 02/18/19 12:00 97.6 87 20 117/97 (104) 96 02/18/19 12:00 97 02/18/19 09:00 Room Air 02/18/19 08:29 102 129/91 02/18/19 08:29 129/91 Intake and Output 02/18/19 02/19/19 19:00 07:00 Intake Total 1573.490 ml 715.196 ml Balance 1573.490 ml 715.196 ml Intake Oral 1200 ml 300 ml IV Total 373.490 ml 415.196 ml # Voids 3 2 Laboratory Tests 02/18/19 11:05: Activated Partial Thromboplast Time 89H 02/19/19 04:00: Activated Partial Thromboplast Time 67H, White Blood Count 7.2, Red Blood Count 4.64, Hemoglobin 12.3, Hematocrit 38.0, Mean Corpuscular Volume 82, Mean Corpuscular Hemoglobin 26.6L, Mean Corpuscular Hemoglobin Concent 32.4, Red Cell Distribution Width 14.7, Platelet Count 340, Mean Platelet Volume 6.5, Neutrophils (%) (Auto) 72.5, Lymphocytes (%) (Auto) 17.4L, Monocytes (%) (Auto) 5.5, Eosinophils (%) (Auto) 2.8, Basophils (%) (Auto) 1.8, Prothrombin Time 13.0H, Prothromb Time International Ratio 1.2H, Sodium Level 137, Potassium Level 3.8, Chloride Level 104, Carbon Dioxide Level 29, Anion Gap 5, Blood Urea Nitrogen 16, Creatinine 1.0, Estimat Glomerular Filtration Rate > 60, Glucose Level 108H, Calcium Level 8.6 Height (Feet): 5 Height (Inches): 6.00 Weight (Pounds): 182 General Appearance: lethargic EENT: normal ENT inspection Neck: normal alignment Cardiovascular: normal peripheral pulses, normal rate, regular rhythm Respiratory/Chest: chest wall non-tender, lungs clear, normal breath sounds Abdomen: normal bowel sounds, non tender, soft Extremities: normal inspection Edema: no edema noted Arm (L), no edema noted Arm (R), no edema noted Leg (L), no edema noted Leg (R), no edema noted Pedal (L), no edema noted Pedal (R), no edema noted Generalized Neurologic: motor weakness Skin: normal pigmentation, warm/dry Alan Perez DO Feb 19, 2019 08:05
[2019-02-19] MEDS: Lisinopril 10mg tab ORAL SCH ×2 (08:54→17:07)
[2019-02-19] MEDS: Carvedilol 6.25mg Tab ORAL SCH ×2 (08:54→22:22)
--- NOTE | 2019-02-19 09:17 | NUR ---
CASE MANAGEMENT:REVIEW 02/17/19 SI: NEW DIAGNOSIS OF LV THROMBUS NSTEMI. AC/CHR CHF. HTN 97.5 112 22 125/95 95% NC 2L K+3.3; PTT 78 IS: HEPARIN GTT IV LASIX Q12 LISINOPRIL PO BID COREG PO Q12HR : TELEMETRY STATUS DCP: FROM HOME CASE MANAGEMENT:REVIEW 02/18/19 SI: NEW DIAGNOSIS OF LV THROMBUS NSTEMI. AC/CHR CHF. HTN 97.3 102 20 129/91 96% ON RA PTT 61 IS: HEPARIN GTT COUMADIN PO X1 IV LASIX Q12 LISINOPRIL PO BID COREG PO Q12HR : TELEMETRY STATUS DCP: FROM HOME CASE MANAGEMENT:REVIEW 02/19/19 SI: NEW DIAGNOSIS OF LV THROMBUS NSTEMI. AC/CHR CHF. HTN 97.6 94 20 137/78 96% ON RA PT/INR 13.0/1.2; PTT 67 IS: HEPARIN GTT COUMADIN PO X1 IV LASIX Q12 LISINOPRIL PO BID COREG PO Q12HR : TELEMETRY STATUS DCP: FROM HOME
--- NOTE | 2019-02-19 10:37 | Pulmonology Progress Note ---
Assessment/Plan Problems: (1) LV (left ventricular) mural thrombus (2) Non-ST elevation (NSTEMI) myocardial infarction (3) Bronchitis (4) Chronic systolic CHF (congestive heart failure) (5) EF of 25% Assessment/Plan on heparin drip and coumadin day 4 no new complains, doing better respiratory treatment antitussives f/u cardiology recommendations Subjective ROS Limited/Unobtainable: No Constitutional: Reports: no symptoms HEENT: Repors: no symptoms Respiratory: Reports: no symptoms Allergies: Coded Allergies: No Known Allergies (Unverified , 10/19/16) Objective Last 24 Hour Vital Signs Date Time Temp Pulse Resp B/P (MAP) Pulse Ox O2 Delivery O2 Flow Rate FiO2 02/19/19 08:54 94 137/78 02/19/19 08:54 137/78 02/19/19 08:00 97.6 94 20 137/78 (97) 96 02/19/19 04:00 89 02/19/19 04:00 97.9 94 19 131/76 (94) 100 02/19/19 00:00 98.1 89 18 112/76 (88) 97 02/19/19 00:00 93 02/18/19 21:37 94 128/76 02/18/19 21:00 Room Air 02/18/19 20:00 97.7 94 20 128/76 (93) 96 02/18/19 20:00 98 02/18/19 18:40 98 Nasal Cannula 2.0 28 02/18/19 18:40 97 20 96 Nasal Cannula 2.0 28 02/18/19 17:11 100/73 02/18/19 16:00 107 02/18/19 16:00 98.7 103 21 100/73 (82) 97 02/18/19 12:00 97.6 87 20 117/97 (104) 96 02/18/19 12:00 97 Intake and Output 02/18/19 02/19/19 19:00 07:00 Intake Total 1573.490 ml 715.196 ml Balance 1573.490 ml 715.196 ml Intake Oral 1200 ml 300 ml IV Total 373.490 ml 415.196 ml # Voids 3 2 General Appearance: WD/WN HEENT: normocephalic, atraumatic Respiratory/Chest: chest wall non-tender, lungs clear Abdomen: normal bowel sounds, soft, non tender Extremities: no cyanosis Neurologic/Psychiatric: dolly driver II-XII grossly normal Lymphatic: no neck adenopathy Laboratory Tests 02/18/19 11:05: Activated Partial Thromboplast Time 89H 02/19/19 04:00: Activated Partial Thromboplast Time 67H, White Blood Count 7.2, Red Blood Count 4.64, Hemoglobin 12.3, Hematocrit 38.0, Mean Corpuscular Volume 82, Mean Corpuscular Hemoglobin 26.6L, Mean Corpuscular Hemoglobin Concent 32.4, Red Cell Distribution Width 14.7, Platelet Count 340, Mean Platelet Volume 6.5, Neutrophils (%) (Auto) 72.5, Lymphocytes (%) (Auto) 17.4L, Monocytes (%) (Auto) 5.5, Eosinophils (%) (Auto) 2.8, Basophils (%) (Auto) 1.8, Prothrombin Time 13.0H, Prothromb Time International Ratio 1.2H, Sodium Level 137, Potassium Level 3.8, Chloride Level 104, Carbon Dioxide Level 29, Anion Gap 5, Blood Urea Nitrogen 16, Creatinine 1.0, Estimat Glomerular Filtration Rate > 60, Glucose Level 108H, Calcium Level 8.6 Current Medications Medications (Trade) Dose Ordered Sig/Tristan Route PRN Reason Start Time Stop Time Status Last Admin Dose Admin Albuterol/ Ipratropium (Albuterol/ Ipratropium) 3 ml Q6H PRN HHN sob 02/16/19 02:30 02/21/19 02:29 02/16/19 20:20 Atorvastatin Calcium (Lipitor) 40 mg BEDTIME ORAL 02/14/19 21:00 03/16/19 20:59 02/18/19 21:37 Carvedilol (Coreg) 6.25 mg EVERY 12 HOURS ORAL 02/16/19 21:00 03/18/19 20:59 02/19/19 08:54 Furosemide (Lasix) 40 mg EVERY 12 HOURS IV 02/15/19 09:00 03/17/19 08:59 02/19/19 08:54 Heparin Sodium/ Dextrose 500 ml @ 37.349 mls/ hr ADJUST PER PROTOCOL IV 02/18/19 04:45 03/20/19 04:44 02/19/19 05:53 Lisinopril (Zestril) 10 mg BID ORAL 02/17/19 09:00 03/19/19 08:59 02/19/19 08:54 Morphine Sulfate (Morphine Sulfate) 2 mg Q4H PRN IVP PAIN 4-10 02/14/19 18:00 02/21/19 17:59 02/17/19 14:48 Warfarin Sodium (Coumadin per pharmacy) 1 ea DAILY PRN MISC Per rx protocol 02/16/19 19:30 03/18/19 19:29 Warfarin Sodium (Coumadin) 7.5 mg COUMADIN ONCE ORAL 02/19/19 17:00 02/19/19 17:01 Rosa Goodwin MD Feb 19, 2019 10:37
--- NOTE | 2019-02-19 10:40 | NUR ---
RADIOLOGY DEPT., CHEST X-RAY DONE.-P.DYE
[2019-02-19 12:00] VITALS: BP 104/87
--- NOTE | 2019-02-19 13:22 | Cardiology Report ---
APPROVED REPORT EXAM: Two-dimensional and M-mode echocardiogram with Doppler and color Doppler. INDICATION Congestive Heart Failure M-Mode DIMENSIONS IVSd1.5 (0.7-1.1cm)Left Atrium (MM)3.7 (1.6-4.0cm) LVDd5.3 (3.5-5.6cm)Aortic Root3.0 (2.0-3.7cm) PWd1.0 (0.7-1.1cm)Aortic Cusp Exc.1.6 (1.5-2.0cm) LVDs5.2 (2.5-4.0cm) PWs1.0 cm Mobile echogenic density noted in left ventricular ap highly suggestive of thrombus (Dr. Bob Garcia notified on 02/15/2019 at 10:30am). Four chamber dilated cardiomyopathy with global left ventricular hypokinesis except the septal wall which is dyskineti likely due to paced RV chamber. Mild left ventricular enlargement. Left ventricular ejection fraction is estimated to be 10%. Mild left ventricular hypertrophy. Small posterior pericardial effusion. Moderate left atrial enlargement. Mild right atrial enlargement. Mild right ventricular enlargement. Mild focal aortic valve sclerosis with adequate cusp excursion. Mildly thickened mitral valve leaflets with reduced excursion. Mild mitral annulus and aortic root calcification. Normal pulmonic valve structure. Normal tricuspid valve structure. IVC dilated at 2.4 cm without physiological collapse, estimated RAP is 15 mmHg. Pacemaker/AICD wire present in the right side chambers. A color flow and spectral Doppler study was performed and revealed: Trace aortic regurgitation. Moderate mitral regurgitation. Left ventricular diastolic function could not be determined due to arrhythmia. Moderate to severe tricuspid regurgitation. Tricuspid systolic velocities suggests peak right ventricular systolic pressure of 75 mmHg, consistent with severe pulmonary hypertension. Mild to moderate pulmonic regurgitation present.
--- NOTE | 2019-02-19 13:36 | Cardiology Report ---
APPROVED REPORT EKG Measurement Heart [id number] [place] [id number] [id number] Sinus with epicardial ventricular paced rhythm
--- NOTE | 2019-02-19 13:41 | Cardiology Report ---
APPROVED REPORT EKG Measurement Heart [id number] [place] 174P68 [id number] Sinus with epicardial v-pcaed rhythm.
--- NOTE | 2019-02-19 14:50 | Diagnostic Imaging Report ---
Indication: Dyspnea Comparison: 02/16/2019 A single view chest radiograph was obtained. Findings: Cardiac silhouette is enlarged but stable. Pacemaker noted on the left. Lungs are clear. No pleural effusion seen. IMPRESSION: Cardiomegaly. Pacemaker
--- NOTE | 2019-02-19 15:02 | NUR ---
*-* INSURANCE *-* ALL AVAILABLE CLINICALS AND REVIEWS HAVE BEEN FAXED TO: Leanna PEPPER: Yolie ref#[id number] ph#[phone] cell#[phone] fax#[phone] & [employer] No CM or tracking# assigned yet PH#[phone]
[2019-02-19 16:00] VITALS: BP 137/78
[2019-02-19] MEDS ORDERED: Warfarin Sodium 7.5mg ORAL ONE (17:00)
--- NOTE | 2019-02-19 19:32 | NUR ---
HAND-OFF: Report given to Rima Joseph.Patient stable. Plan of care endorsed.
--- NOTE | 2019-02-19 19:42 | NUR ---
NURSE NOTES: PT received from LOLI Ruiz alert and oriented x4 with no acute s/s of distress noted. IV site asymptomatic and patent on R fa 24g, running to Heparin drip as ordered - 23 U/kg/hr, 37.349 ml/hr. Bed in lowest position, bed alarm on. Call light and belongings within reach.
[2019-02-19 20:00] VITALS: BP 140/92
--- NOTE | 2019-02-19 20:11 | Cardiology Progress Note ---
Assessment/Plan Assessment/Plan chf acute systolic cm s/p icd New diagnosis of LV thrombus will need anticoagulation heparin to Coumadin to start to day Coumadin teaching provided pt indicates has recieved paperwork not read yet encoaurge to read dariela continue chf treatment d/w pt regardin lv thombus and risk of embolism and treatmen with anticoagualtion increase acei on coreg po lasix soon inr not therpuric yet Subjective Cardiovascular: Denies: chest pain, lightheadedness Respiratory: Denies: shortness of breath Gastrointestinal/Abdominal: Denies: abdominal pain Genitourinary: Denies: burning Objective Last 24 Hour Vital Signs Date Time Temp Pulse Resp B/P (MAP) Pulse Ox O2 Delivery O2 Flow Rate FiO2 02/19/19 17:07 137/78 02/19/19 16:00 97.6 94 20 137/78 (97) 97 02/19/19 16:00 92 02/19/19 12:00 85 02/19/19 12:00 97.8 92 20 104/87 (93) 97 02/19/19 09:00 Room Air 02/19/19 08:54 94 137/78 02/19/19 08:54 137/78 02/19/19 08:15 92 20 97 Nasal Cannula 2.0 28 02/19/19 08:13 98 Nasal Cannula 2.0 28 02/19/19 08:00 92 02/19/19 08:00 97.6 94 20 137/78 (97) 96 02/19/19 04:00 89 02/19/19 04:00 97.9 94 19 131/76 (94) 100 02/19/19 00:00 98.1 89 18 112/76 (88) 97 02/19/19 00:00 93 02/18/19 21:37 94 128/76 02/18/19 21:00 Room Air General Appearance: no apparent distress, alert Neck: supple Cardiovascular: normal rate Respiratory/Chest: lungs clear Abdomen: normal bowel sounds, non tender, soft Extremities: no swelling Intake and Output 02/18/19 02/19/19 19:00 07:00 Intake Total 1573.490 ml 715.196 ml Balance 1573.490 ml 715.196 ml Intake Oral 1200 ml 300 ml IV Total 373.490 ml 415.196 ml # Voids 3 2 Laboratory Tests Test 02/19/19 04:00 White Blood Count 7.2 K/UL (4.8-10.8) Red Blood Count 4.64 M/UL (4.20-5.40) Hemoglobin 12.3 G/DL (12.0-16.0) Hematocrit 38.0 % (37.0-47.0) Mean Corpuscular Volume 82 FL (80-99) Mean Corpuscular Hemoglobin 26.6 PG (27.0-31.0) L Mean Corpuscular Hemoglobin Concent 32.4 G/DL (32.0-36.0) Red Cell Distribution Width 14.7 % (11.6-14.8) Platelet Count 340 K/UL (150-450) Mean Platelet Volume 6.5 FL (6.5-10.1) Neutrophils (%) (Auto) 72.5 % (45.0-75.0) Lymphocytes (%) (Auto) 17.4 % (20.0-45.0) L Monocytes (%) (Auto) 5.5 % (1.0-10.0) Eosinophils (%) (Auto) 2.8 % (0.0-3.0) Basophils (%) (Auto) 1.8 % (0.0-2.0) Prothrombin Time 13.0 SEC (9.30-11.50) H Prothromb Time International Ratio 1.2 (0.9-1.1) H Activated Partial Thromboplast Time 67 SEC (23-33) H Sodium Level 137 MMOL/L (136-145) Potassium Level 3.8 MMOL/L (3.5-5.1) Chloride Level 104 MMOL/L (98-107) Carbon Dioxide Level 29 MMOL/L (21-32) Anion Gap 5 mmol/L (5-15) Blood Urea Nitrogen 16 mg/dL (7-18) Creatinine 1.0 MG/DL (0.55-1.30) Estimat Glomerular Filtration Rate > 60 mL/min (>60) Glucose Level 108 MG/DL (74-106) H Calcium Level 8.6 MG/DL (8.5-10.1) Severino Rojas MD Feb 19, 2019 20:11
[2019-02-19] MEDS: Atorvastatin 20mg tab ORAL SCH (22:21)
[2019-02-20] VITALS (7 sets, daily range): BP systolic 98–144; BP diastolic 71–93
--- NOTE | 2019-02-20 03:08 | NUR ---
NURSE NOTES: Pt asleep, resting in bed with no acute s/s of distress noted. IV site asymptomatic and patent, running to Heparin drip ordered. Bed in lowest position, call light and belongings within reach.
[2019-02-20 04:57] LABS: BASOPHILS % (AUTO) 1.4 % (0.0-2.0); EOSINOPHILS % (AUTO) 2.5 % (0.0-3.0); HEMATOCRIT 37.2 % (37.0-47.0); HEMOGLOBIN 12.2 G/DL (12.0-16.0); LYMPHOCYTES % (AUTO) 16.3 % (20.0-45.0); MEAN CORPUSCULAR VOLUME 81 FL (80-99); MONOCYTES % (AUTO) 7.7 % (1.0-10.0); NEUTROPHILS % (AUTO) 72.1 % (45.0-75.0); PLATELET COUNT 309 K/UL (150-450); RED CELL DISTRIBUTION WIDTH 14.4 % (11.6-14.8); WHITE BLOOD COUNT 6.3 K/UL (4.8-10.8)
[2019-02-20 05:17] LABS: INR 1.8 (0.9-1.1)
[2019-02-20 05:20] LABS: ANION GAP 10 mmol/L (5-15); BLOOD UREA NITROGEN 18 mg/dL (7-18); CALCIUM 8.8 MG/DL (8.5-10.1); CARBON DIOXIDE 27 MMOL/L (21-32); CHLORIDE 104 MMOL/L (98-107); POTASSIUM 3.9 MMOL/L (3.5-5.1); SODIUM 141 MMOL/L (136-145)
[2019-02-20] MEDS ORDERED: Heparin 5000 units/ml inj IV SCH (05:30)
[2019-02-20] MEDS: Heparin 25,000u/D5W 500ml 500 ML IV SCH ×3 (05:49→14:03)
--- NOTE | 2019-02-20 07:33 | NUR ---
HAND-OFF: Report given to LOLI Sullivan. Plan of care endorsed.
--- NOTE | 2019-02-20 07:35 | CDS Physician Query ---
Clarification is required for compliance, coding accuracy, and to reflect severity of illness for this patient Dear Dr. Rosa Goodwin MD Date: 02/20/2019 Industry Analyst/CDS Name: Tristin Cristobal 53 year old female with hx of systolic cardiomyopathy, ICD, on Lasix presented to ER with CC of shortness of breath for the last three days. She just moved to a new apartment because of respiratory problems she had in previous apartment. "CHF" documented in progress notes Echo: EF 25% BNP: 8090 Tx: IV FUROCEMID Please Clarify: Acuity [] Acute [] Chronic [] Acute on Chronic Type [] Systolic [] Diastolic [] Systolic & Diastolic (Combined) [] Other: Present on Admission: [] Yes [] No [] Clinically Undetermined Physician signature Date Please also document in your Progress Notes and/or Discharge Summary and indicate if the condition was present on admission. TERRANCE
--- NOTE | 2019-02-20 07:37 | NUR ---
NURSE NOTES: Received report from LOLI Joseph.Pt in bed, awake, talkative, no complaints of pain at this time, no apparent distress noted, Heparin drip running according to protocol all values checked, assessment done and charted, vitals being taken by Adriane MISHRA, discussed plan of care with pt, bed in lowest position, call light within reach.
[2019-02-20] MEDS: Carvedilol 6.25mg Tab ORAL SCH ×2 (08:43→20:28)
[2019-02-20] MEDS: Lisinopril 10mg tab ORAL SCH ×2 (08:43→17:04)
--- NOTE | 2019-02-20 09:45 | NUR ---
CASE MANAGEMENT:REVIEW 02/20/19 SI: NEW DIAGNOSIS OF LV THROMBUS NSTEMI. AC/CHR CHF. HTN; EF 25% 97.9 91 16 120/85 98% ON RA PT/INR 18.1/1.8; PTT 53 IS: HEPARIN GTT IV LASIX Q12 LISINOPRIL PO BID COREG PO Q12HR ALBUTEROL HHN Q6/PRN LIPITOR PO HS IV MORPHINE SULFATE Q4/PRN : TELEMETRY STATUS DCP: FROM HOME PLAN: START COUMADIN COUMADIN TEACHING CHANGE IV LASIX TO PO INR NOT IN THERAPEUTIC RANGE DC PLANNING FOR TODAY DR. RODRIGUEZ
--- NOTE | 2019-02-20 10:58 | NUR ---
NURSE NOTES: Rn provided pt with written material for new Warfarin prescription. Printed from [facility]'s "What you need to know when taking Warfarin" RN reviewed information with pt including indication, side effects, when to notify MD when to seek help, S/S of DVT, S/S Stroke, diet (avoid Vit K), precautions, spent over 20 minutes with pt providing education
--- NOTE | 2019-02-20 11:38 | Pulmonology Progress Note ---
Assessment/Plan Problems: (1) LV (left ventricular) mural thrombus (2) Non-ST elevation (NSTEMI) myocardial infarction (3) Bronchitis (4) Chronic systolic CHF (congestive heart failure) (5) EF of 25% Assessment/Plan on heparin drip and coumadin day 5, INR is 1.8 no new complains, doing better respiratory treatment antitussives f/u cardiology recommendations Subjective ROS Limited/Unobtainable: No Interval Events: no new complains, doing better Constitutional: Reports: no symptoms Allergies: Coded Allergies: No Known Allergies (Unverified , 10/19/16) Objective Last 24 Hour Vital Signs Date Time Temp Pulse Resp B/P (MAP) Pulse Ox O2 Delivery O2 Flow Rate FiO2 02/20/19 08:43 91 120/85 02/20/19 08:43 120/85 02/20/19 08:00 97.9 91 16 120/85 (97) 98 02/20/19 07:54 106 02/20/19 07:39 Room Air 02/20/19 04:00 90 02/20/19 04:00 97.7 89 19 110/78 (89) 100 02/20/19 00:00 97.2 92 18 144/93 (110) 94 02/20/19 00:00 94 02/19/19 22:22 94 140/92 02/19/19 21:00 Room Air 02/19/19 20:00 94 20 95 Nasal Cannula 2.0 28 02/19/19 20:00 97.0 94 19 140/92 (108) 95 02/19/19 20:00 95 02/19/19 20:00 97 Nasal Cannula 2.0 28 02/19/19 17:07 137/78 02/19/19 16:00 97.6 94 20 137/78 (97) 97 02/19/19 16:00 92 02/19/19 12:00 85 02/19/19 12:00 97.8 92 20 104/87 (93) 97 Intake and Output 02/19/19 02/20/19 19:00 07:00 Intake Total 1205.537 ml 573.490 ml Output Total 3 ml 600 ml Balance 1202.537 ml -26.510 ml Intake Oral 720 ml 200 ml IV Total 485.537 ml 373.490 ml Output Urine Total 3 ml 600 ml # Voids 2 General Appearance: WD/WN HEENT: normocephalic, atraumatic Respiratory/Chest: chest wall non-tender, lungs clear Breasts: no masses Cardiovascular: normal rate Abdomen: normal bowel sounds, no organomegaly Genitourinary: normal external genitalia Extremities: no clubbing Skin: no lesions, no ulcers Neurologic/Psychiatric: business services manager 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 grossly normal Lymphatic: no neck adenopathy Laboratory Tests 02/20/19 04:20: White Blood Count 6.3, Red Blood Count 4.60, Hemoglobin 12.2, Hematocrit 37.2, Mean Corpuscular Volume 81, Mean Corpuscular Hemoglobin 26.5L, Mean Corpuscular Hemoglobin Concent 32.8, Red Cell Distribution Width 14.4, Platelet Count 309, Mean Platelet Volume 6.3L, Neutrophils (%) (Auto) 72.1, Lymphocytes (%) (Auto) 16.3L, Monocytes (%) (Auto) 7.7, Eosinophils (%) (Auto) 2.5, Basophils (%) (Auto ) 1.4, Prothrombin Time 18.1H, Prothromb Time International Ratio 1.8H, Activated Partial Thromboplast Time 52H, Sodium Level 141, Potassium Level 3.9, Chloride Level 104, Carbon Dioxide Level 27, Anion Gap 10, Blood Urea Nitrogen 18, Creatinine 1.0, Estimat Glomerular Filtration Rate > 60, Glucose Level 105, Calcium Level 8.8 Current Medications Medications (Trade) Dose Ordered Sig/Tristan Route PRN Reason Start Time Stop Time Status Last Admin Dose Admin Albuterol/ Ipratropium (Albuterol/ Ipratropium) 3 ml Q6H PRN HHN sob 02/16/19 02:30 02/21/19 02:29 02/16/19 20:20 Atorvastatin Calcium (Lipitor) 40 mg BEDTIME ORAL 02/14/19 21:00 03/16/19 20:59 02/19/19 22:21 Carvedilol (Coreg) 6.25 mg EVERY 12 HOURS ORAL 02/16/19 21:00 03/18/19 20:59 02/20/19 08:43 Furosemide (Lasix) 40 mg DAILY IV 02/20/19 09:00 03/22/19 08:59 02/20/19 08:44 Heparin Sodium/ Dextrose 500 ml @ 40.597 mls/ hr ADJUST PER PROTOCOL IV 02/20/19 05:30 03/22/19 05:29 02/20/19 09:17 Lisinopril (Zestril) 10 mg BID ORAL 02/17/19 09:00 03/19/19 08:59 02/20/19 08:43 Morphine Sulfate (Morphine Sulfate) 2 mg Q4H PRN IVP PAIN 4-10 02/14/19 18:00 02/21/19 17:59 02/17/19 14:48 Warfarin Sodium (Coumadin per pharmacy) 1 ea DAILY PRN MISC Per rx protocol 02/16/19 19:30 03/18/19 19:29 Warfarin Sodium (Coumadin) 3 mg COUMADIN ORAL 02/20/19 17:00 02/20/19 18:00 Rosa Goodwin MD Feb 20, 2019 11:38
--- NOTE | 2019-02-20 14:02 | General Progress Note ---
Assessment/Plan Problem List: (1) HTN (hypertension) ICD Codes: I10 - Essential (primary) hypertension SNOMED: 72917657 (2) Non-ST elevation (NSTEMI) myocardial infarction ICD Codes: I21.4 - Non-ST elevation (NSTEMI) myocardial infarction SNOMED: 66701842 (3) Elevated troponin ICD Codes: R79.89 - Other specified abnormal findings of blood chemistry SNOMED: 995803588, 405963085, 567018637 (4) Acute exacerbation of CHF (congestive heart failure) ICD Codes: I50.9 - Heart failure, unspecified SNOMED: 354750776, 28295126884776, 143569838 Status: stable, progressing Assessment/Plan: pt diet pain control cardio f/u cbc bmp am dc plan Subjective Constitutional: Reports: weakness Allergies: Coded Allergies: No Known Allergies (Unverified , 10/19/16) All Systems: reviewed and negative except above Subjective o2nc calm Objective Last 24 Hour Vital Signs Date Time Temp Pulse Resp B/P (MAP) Pulse Ox O2 Delivery O2 Flow Rate FiO2 02/20/19 12:18 80 113/74 (87) 02/20/19 12:00 97.3 83 16 98/71 (80) 100 02/20/19 11:36 90 02/20/19 08:43 91 120/85 02/20/19 08:43 120/85 02/20/19 08:00 97.9 91 16 120/85 (97) 98 02/20/19 07:54 106 02/20/19 07:39 Room Air 02/20/19 04:00 90 02/20/19 04:00 97.7 89 19 110/78 (89) 100 02/20/19 00:00 97.2 92 18 144/93 (110) 94 02/20/19 00:00 94 02/19/19 22:22 94 140/92 02/19/19 21:00 Room Air 02/19/19 20:00 94 20 95 Nasal Cannula 2.0 28 02/19/19 20:00 97.0 94 19 140/92 (108) 95 02/19/19 20:00 95 02/19/19 20:00 97 Nasal Cannula 2.0 28 02/19/19 17:07 137/78 02/19/19 16:00 97.6 94 20 137/78 (97) 97 02/19/19 16:00 92 Intake and Output 02/19/19 02/20/19 19:00 07:00 Intake Total 1205.537 ml 573.490 ml Output Total 3 ml 600 ml Balance 1202.537 ml -26.510 ml Intake Oral 720 ml 200 ml IV Total 485.537 ml 373.490 ml Output Urine Total 3 ml 600 ml # Voids 2 Laboratory Tests 02/20/19 04:20: White Blood Count 6.3, Red Blood Count 4.60, Hemoglobin 12.2, Hematocrit 37.2, Mean Corpuscular Volume 81, Mean Corpuscular Hemoglobin 26.5L, Mean Corpuscular Hemoglobin Concent 32.8, Red Cell Distribution Width 14.4, Platelet Count 309, Mean Platelet Volume 6.3L, Neutrophils (%) (Auto) 72.1, Lymphocytes (%) (Auto) 16.3L, Monocytes (%) (Auto) 7.7, Eosinophils (%) (Auto) 2.5, Basophils (%) (Auto ) 1.4, Prothrombin Time 18.1H, Prothromb Time International Ratio 1.8H, Activated Partial Thromboplast Time 52H, Sodium Level 141, Potassium Level 3.9, Chloride Level 104, Carbon Dioxide Level 27, Anion Gap 10, Blood Urea Nitrogen 18, Creatinine 1.0, Estimat Glomerular Filtration Rate > 60, Glucose Level 105, Calcium Level 8.8 02/20/19 12:05: Activated Partial Thromboplast Time > 150*H Height (Feet): 5 Height (Inches): 6.00 Weight (Pounds): 182 General Appearance: lethargic EENT: normal ENT inspection Neck: normal alignment Cardiovascular: normal peripheral pulses, normal rate, regular rhythm Respiratory/Chest: chest wall non-tender, lungs clear, normal breath sounds Abdomen: normal bowel sounds, non tender, soft Extremities: normal inspection Edema: no edema noted Arm (L), no edema noted Arm (R), no edema noted Leg (L), no edema noted Leg (R), no edema noted Pedal (L), no edema noted Pedal (R), no edema noted Generalized Neurologic: responsive, motor weakness Skin: normal pigmentation, warm/dry Alan Perez DO Feb 20, 2019 14:02
--- NOTE | 2019-02-20 14:15 | NUR ---
*-* INSURANCE *-* ALL AVAILABLE CLINICALS AND REVIEWS HAVE BEEN FAXED TO: Leanna PEPPER: Yolie ref#[id number] ph#[phone] cell#[phone] fax#[phone] & [employer] No CM or tracking# assigned yet PH#[phone]
--- NOTE | 2019-02-20 14:54 | Cardiology Progress Note ---
Assessment/Plan Assessment/Plan chf acute systolic cm s/p icd New diagnosis of LV thrombus will need anticoagulation heparin to Coumadin to start to day Coumadin teaching provided pt indicates has recieved paperwork not read yet encoaurge to read dariela continue chf treatment d/w pt regarding lv thrombus and risk of embolism and treatmen with anticoagualtion increase acei on coreg po lasix soon inr not therapeutic yet but is better i suspect by tomorrow should be i have explained to the pt the need to see her pmd or computer aide for protim check and dose adjustment again needs to watch na and fluid intake i gave he my card with information about her major issue needing fu i discussed the ipa director who informed me he apporves her stay pt indicated understanding my recommendations and instructions Subjective Cardiovascular: Denies: chest pain, lightheadedness, palpitations Respiratory: Denies: shortness of breath Gastrointestinal/Abdominal: Denies: abdominal pain Genitourinary: Denies: burning Subjective has walked in [facility] no cp no sob when walks Objective Last 24 Hour Vital Signs Date Time Temp Pulse Resp B/P (MAP) Pulse Ox O2 Delivery O2 Flow Rate FiO2 02/20/19 14:13 80 20 98 Room Air 21 02/20/19 14:12 99 Room Air 21 02/20/19 12:18 80 113/74 (87) 02/20/19 12:00 97.3 83 16 98/71 (80) 100 02/20/19 11:36 90 02/20/19 08:43 91 120/85 02/20/19 08:43 120/85 02/20/19 08:00 97.9 91 16 120/85 (97) 98 02/20/19 07:54 106 02/20/19 07:39 Room Air 02/20/19 04:00 90 02/20/19 04:00 97.7 89 19 110/78 (89) 100 02/20/19 00:00 97.2 92 18 144/93 (110) 94 02/20/19 00:00 94 02/19/19 22:22 94 140/92 02/19/19 21:00 Room Air 02/19/19 20:00 94 20 95 Nasal Cannula 2.0 28 02/19/19 20:00 97.0 94 19 140/92 (108) 95 02/19/19 20:00 95 02/19/19 20:00 97 Nasal Cannula 2.0 28 02/19/19 17:07 137/78 02/19/19 16:00 97.6 94 20 137/78 (97) 97 02/19/19 16:00 92 General Appearance: no apparent distress, alert Cardiovascular: normal rate Respiratory/Chest: lungs clear Abdomen: normal bowel sounds, non tender, soft Extremities: no swelling Intake and Output 02/19/19 02/20/19 19:00 07:00 Intake Total 1205.537 ml 573.490 ml Output Total 3 ml 600 ml Balance 1202.537 ml -26.510 ml Intake Oral 720 ml 200 ml IV Total 485.537 ml 373.490 ml Output Urine Total 3 ml 600 ml # Voids 2 Laboratory Tests Test 02/20/19 04:20 02/20/19 12:05 White Blood Count 6.3 K/UL (4.8-10.8) Red Blood Count 4.60 M/UL (4.20-5.40) Hemoglobin 12.2 G/DL (12.0-16.0) Hematocrit 37.2 % (37.0-47.0) Mean Corpuscular Volume 81 FL (80-99) Mean Corpuscular Hemoglobin 26.5 PG (27.0-31.0) L Mean Corpuscular Hemoglobin Concent 32.8 G/DL (32.0-36.0) Red Cell Distribution Width 14.4 % (11.6-14.8) Platelet Count 309 K/UL (150-450) Mean Platelet Volume 6.3 FL (6.5-10.1) L Neutrophils (%) (Auto) 72.1 % (45.0-75.0) Lymphocytes (%) (Auto) 16.3 % (20.0-45.0) L Monocytes (%) (Auto) 7.7 % (1.0-10.0) Eosinophils (%) (Auto) 2.5 % (0.0-3.0) Basophils (%) (Auto) 1.4 % (0.0-2.0) Prothrombin Time 18.1 SEC (9.30-11.50) H Prothromb Time International Ratio 1.8 (0.9-1.1) H Activated Partial Thromboplast Time 52 SEC (23-33) H > 150 SEC (23-33) *H Sodium Level 141 MMOL/L (136-145) Potassium Level 3.9 MMOL/L (3.5-5.1) Chloride Level 104 MMOL/L (98-107) Carbon Dioxide Level 27 MMOL/L (21-32) Anion Gap 10 mmol/L (5-15) Blood Urea Nitrogen 18 mg/dL (7-18) Creatinine 1.0 MG/DL (0.55-1.30) Estimat Glomerular Filtration Rate > 60 mL/min (>60) Glucose Level 105 MG/DL (74-106) Calcium Level 8.8 MG/DL (8.5-10.1) Severino Rojas MD Feb 20, 2019 14:54
[2019-02-20] MEDS ORDERED: Warfarin Sodium 3mg ORAL SCH (17:00)
--- NOTE | 2019-02-20 17:00 | NUR ---
NURSE NOTES: Contacted Dr. Perez about the Morphine order needs to be renewed.
[2019-02-20] MEDS ORDERED: Morphine Sulfate 2mg/ml Inj(IV/IM USE ONLY) IVP PRN (17:23)
--- NOTE | 2019-02-20 19:31 | NUR ---
HAND-OFF: Report given to LOLI Joseph.
--- NOTE | 2019-02-20 19:35 | NUR ---
NURSE NOTES: Pt received from LOLI Sullivan alert and oriented x4 with no acute s/s of distress noted. IV site asymptomatic and patent to R fa 24 g, running to Heparin drip as ordered. Bed in lowest position, bed alarm on. Call light and belongings within reach.
[2019-02-20] MEDS: Atorvastatin 20mg tab ORAL SCH (20:27)
--- NOTE | 2019-02-20 20:39 | NUR ---
NURSE NOTES: Received call from Cash from Pharmacy, "pt's PTT at therapeutic level. Maintain Heparin dosage at current rate per protocol." RN placed Timed PTT orders at 0400 02/21/2019.
[2019-02-21] VITALS: BP 128/82
[2019-02-21] MEDS: Heparin 25,000u/D5W 500ml 500 ML IV SCH ×2 (02:06→16:55)
[2019-02-21 04:00] VITALS: BP 126/80
[2019-02-21 04:10] LABS: EOSINOPHILS % (AUTO) 2.1 % (0.0-3.0); HEMATOCRIT 37.4 % (37.0-47.0); HEMOGLOBIN 12.3 G/DL (12.0-16.0); LYMPHOCYTES % (AUTO) 15.1 % (20.0-45.0); MEAN CORPUSCULAR VOLUME 81 FL (80-99); MONOCYTES % (AUTO) 8.5 % (1.0-10.0); NEUTROPHILS % (AUTO) 72.3 % (45.0-75.0); PLATELET COUNT 335 K/UL (150-450); RED BLOOD COUNT 4.63 M/UL (4.20-5.40); RED CELL DISTRIBUTION WIDTH 14.3 % (11.6-14.8); WHITE BLOOD COUNT 5.7 K/UL (4.8-10.8)
[2019-02-21 04:15] LABS: ANION GAP 7 mmol/L (5-15); BLOOD UREA NITROGEN 15 mg/dL (7-18); CALCIUM 8.9 MG/DL (8.5-10.1); CARBON DIOXIDE 27 MMOL/L (21-32); CHLORIDE 104 MMOL/L (98-107); CREATININE 0.9 MG/DL (0.55-1.30); POTASSIUM 3.7 MMOL/L (3.5-5.1); SODIUM 138 MMOL/L (136-145)
--- NOTE | 2019-02-21 07:30 | NUR ---
NURSE NOTES: Received report from LOLI Joseph. The patient is resting on the bed without acute distress or shortness of breath. The patient's bed in the lowest position, call light in reach, and fall and aspiration precaution reinforced. Heparin drip running as ordered. IV site intact and patent. Will continue plan of care.
--- NOTE | 2019-02-21 07:30 | NUR ---
HAND-OFF: Report given to LOLI Urena. Plan of care endorsed.
[2019-02-21 08:00] VITALS: BP 116/80
[2019-02-21] MEDS: Carvedilol 6.25mg Tab ORAL SCH ×2 (09:01→20:56)
[2019-02-21] MEDS: Lisinopril 10mg tab ORAL SCH ×2 (09:02→17:33)
[2019-02-21] MEDS: Furosemide 80mg tab ORAL SCH (09:02)
--- NOTE | 2019-02-21 09:11 | General Progress Note ---
Assessment/Plan Problem List: (1) HTN (hypertension) ICD Codes: I10 - Essential (primary) hypertension SNOMED: 73286461 (2) Non-ST elevation (NSTEMI) myocardial infarction ICD Codes: I21.4 - Non-ST elevation (NSTEMI) myocardial infarction SNOMED: 06146988 (3) Elevated troponin ICD Codes: R79.89 - Other specified abnormal findings of blood chemistry SNOMED: 763490318, 920863801, 426207098 (4) Acute exacerbation of CHF (congestive heart failure) ICD Codes: I50.9 - Heart failure, unspecified SNOMED: 202169671, 21456209175378, 935315245 Status: stable, progressing Assessment/Plan: pt diet pain control cardio f/u cbc bmp am dc plan Subjective Constitutional: Reports: weakness Allergies: Coded Allergies: No Known Allergies (Unverified , 10/19/16) All Systems: reviewed and negative except above Subjective o2nc calm Objective Last 24 Hour Vital Signs Date Time Temp Pulse Resp B/P (MAP) Pulse Ox O2 Delivery O2 Flow Rate FiO2 02/21/19 09:02 116/80 02/21/19 09:01 87 116/80 02/21/19 08:00 98.1 87 19 116/80 (92) 96 02/21/19 04:00 98.2 90 19 126/80 (95) 98 02/21/19 04:00 85 02/21/19 00:00 90 02/21/19 00:00 98.1 92 18 128/82 (97) 97 02/20/19 21:00 Room Air 02/20/19 20:28 80 138/74 02/20/19 20:27 86 18 97 Room Air 21 02/20/19 20:27 Room Air 21 02/20/19 20:00 98 02/20/19 20:00 97.9 91 19 138/74 (95) 98 02/20/19 17:04 101/73 02/20/19 15:41 98.5 83 16 101/73 (82) 98 02/20/19 15:33 87 02/20/19 14:13 80 20 98 Room Air 21 02/20/19 14:12 99 Room Air 21 02/20/19 12:18 80 113/74 (87) 02/20/19 12:00 97.3 83 16 98/71 (80) 100 02/20/19 11:36 90 Intake and Output 02/20/19 02/21/19 18:59 06:59 Intake Total 1026.217 ml 470.505 ml Output Total 1000 ml Balance 26.217 ml 470.505 ml Intake Oral 730 ml 300 ml IV Total 296.217 ml 170.505 ml Output Urine Total 1000 ml # Voids 3 Laboratory Tests 02/20/19 12:05: Activated Partial Thromboplast Time > 150*H 02/20/19 20:03: Activated Partial Thromboplast Time 94H 02/21/19 03:56: Activated Partial Thromboplast Time 83H, White Blood Count 5.7, Red Blood Count 4.63, Hemoglobin 12.3, Hematocrit 37.4, Mean Corpuscular Volume 81, Mean Corpuscular Hemoglobin 26.6L, Mean Corpuscular Hemoglobin Concent 33.0, Red Cell Distribution Width 14.3, Platelet Count 335, Mean Platelet Volume 6.6, Neutrophils (%) (Auto) 72.3, Lymphocytes (%) (Auto) 15.1L, Monocytes (%) (Auto) 8.5, Eosinophils (%) (Auto) 2.1, Basophils (%) (Auto) 2.0, Prothrombin Time 20.1H, Prothromb Time International Ratio 2.0H, Sodium Level 138, Potassium Level 3.7, Chloride Level 104, Carbon Dioxide Level 27, Anion Gap 7, Blood Urea Nitrogen 15, Creatinine 0.9, Estimat Glomerular Filtration Rate > 60, Glucose Level 108H, Calcium Level 8.9 Height (Feet): 5 Height (Inches): 6.00 Weight (Pounds): 187 General Appearance: lethargic EENT: normal ENT inspection Neck: normal alignment Cardiovascular: normal peripheral pulses, normal rate, regular rhythm Respiratory/Chest: chest wall non-tender, lungs clear, normal breath sounds Abdomen: normal bowel sounds, non tender, soft Extremities: normal inspection Edema: no edema noted Arm (L), no edema noted Arm (R), no edema noted Leg (L), no edema noted Leg (R), no edema noted Pedal (L), no edema noted Pedal (R), no edema noted Generalized Neurologic: motor weakness Skin: normal pigmentation, warm/dry Alan Perez DO Feb 21, 2019 09:11
--- NOTE | 2019-02-21 09:51 | NUR ---
CASE MANAGEMENT:REVIEW 02/21/19 SI: NEW DIAGNOSIS OF LV THROMBUS NSTEMI. AC/CHR CHF. HTN; EF 25% 98.1 87 19 116/80 96% ON RA PT/INR 20.1/2.0; PTT 83 IS: GTT HEPARIN COUMADIN PO QD LASIX PO QD LISINOPRIL PO BID COREG PO Q12HR ALBUTEROL HHN Q6/PRN LIPITOR PO HS IV MORPHINE SULFATE Q4/PRN : TELEMETRY STATUS DCP: FROM HOME PLAN: COUMADIN TEACHING CHANGE IV LASIX TO PO NEEDS INR IN THERAPEUTIC RANGE DC PLANNING
--- NOTE | 2019-02-21 10:39 | NUR ---
RD ASSESSMENT & RECOMMENDATIONS SEE CARE ACTIVITY FOR COMPLETE ASSESSMENT DAILY ESTIMATED NEEDS: Needs based on Cardiac, pulmonary adj 62.8kg 25-30 kcals/kg 5745-2587 total kcals 1-1.5 g protein/kg 63-94 g total protein Fluid per MD, on lasix NUTRITION DIAGNOSIS: *Decrease sodium needs r/t CHF, cardiac history as evidenced by elev BP (137/102), elev BNP (6469), on lasix. PO DIET RECOMMENDATIONS: Maintain Low Sodium Diet ADDITIONAL RECOMMENDATIONS: 1) Obtain daily weights/ standing if able . 2) Monitor fluid intake w/ lasix 3) Check lytes daily on lasix 4) Obtain a lipid panel for eval 5) Provided diet edu rec Coumadin/ Vit K FDI
--- NOTE | 2019-02-21 10:53 | Pulmonology Progress Note ---
Assessment/Plan Problems: (1) LV (left ventricular) mural thrombus (2) Non-ST elevation (NSTEMI) myocardial infarction (3) Bronchitis (4) Chronic systolic CHF (congestive heart failure) (5) EF of 25% Assessment/Plan on heparin drip and coumadin day 6, INR is 2 no new complains, doing better respiratory treatment antitussives f/u cardiology recommendations Subjective ROS Limited/Unobtainable: No Constitutional: Reports: no symptoms HEENT: Repors: no symptoms Respiratory: Reports: no symptoms Allergies: Coded Allergies: No Known Allergies (Unverified , 10/19/16) Objective Last 24 Hour Vital Signs Date Time Temp Pulse Resp B/P (MAP) Pulse Ox O2 Delivery O2 Flow Rate FiO2 02/21/19 09:23 88 16 98 Room Air 21 02/21/19 09:23 Room Air 21 02/21/19 09:02 116/80 02/21/19 09:01 87 116/80 02/21/19 08:00 98.1 87 19 116/80 (92) 96 02/21/19 04:00 98.2 90 19 126/80 (95) 98 02/21/19 04:00 85 02/21/19 00:00 90 02/21/19 00:00 98.1 92 18 128/82 (97) 97 02/20/19 21:00 Room Air 02/20/19 20:28 80 138/74 02/20/19 20:27 86 18 97 Room Air 21 02/20/19 20:27 Room Air 21 02/20/19 20:00 98 02/20/19 20:00 97.9 91 19 138/74 (95) 98 02/20/19 17:04 101/73 02/20/19 15:41 98.5 83 16 101/73 (82) 98 02/20/19 15:33 87 02/20/19 14:13 80 20 98 Room Air 21 02/20/19 14:12 99 Room Air 21 02/20/19 12:18 80 113/74 (87) 02/20/19 12:00 97.3 83 16 98/71 (80) 100 02/20/19 11:36 90 Intake and Output 02/20/19 02/21/19 18:59 06:59 Intake Total 1026.217 ml 470.505 ml Output Total 1000 ml Balance 26.217 ml 470.505 ml Intake Oral 730 ml 300 ml IV Total 296.217 ml 170.505 ml Output Urine Total 1000 ml # Voids 3 General Appearance: WD/WN, no acute distress HEENT: normocephalic, atraumatic Respiratory/Chest: chest wall non-tender, lungs clear, normal breath sounds Breasts: no masses Cardiovascular: normal peripheral pulses, normal rate Abdomen: normal bowel sounds, soft, non tender Genitourinary: normal external genitalia Extremities: no clubbing 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 Laboratory Tests 02/20/19 12:05: Activated Partial Thromboplast Time > 150*H 02/20/19 20:03: Activated Partial Thromboplast Time 94H 02/21/19 03:56: Activated Partial Thromboplast Time 83H, White Blood Count 5.7, Red Blood Count 4.63, Hemoglobin 12.3, Hematocrit 37.4, Mean Corpuscular Volume 81, Mean Corpuscular Hemoglobin 26.6L, Mean Corpuscular Hemoglobin Concent 33.0, Red Cell Distribution Width 14.3, Platelet Count 335, Mean Platelet Volume 6.6, Neutrophils (%) (Auto) 72.3, Lymphocytes (%) (Auto) 15.1L, Monocytes (%) (Auto) 8.5, Eosinophils (%) (Auto) 2.1, Basophils (%) (Auto) 2.0, Prothrombin Time 20.1H, Prothromb Time International Ratio 2.0H, Sodium Level 138, Potassium Level 3.7, Chloride Level 104, Carbon Dioxide Level 27, Anion Gap 7, Blood Urea Nitrogen 15, Creatinine 0.9, Estimat Glomerular Filtration Rate > 60, Glucose Level 108H, Calcium Level 8.9 Current Medications Medications (Trade) Dose Ordered Sig/Tristan Route PRN Reason Start Time Stop Time Status Last Admin Dose Admin Atorvastatin Calcium (Lipitor) 40 mg BEDTIME ORAL 02/14/19 21:00 03/16/19 20:59 02/20/19 20:27 Carvedilol (Coreg) 6.25 mg EVERY 12 HOURS ORAL 02/16/19 21:00 03/18/19 20:59 02/21/19 09:01 Furosemide (Lasix) 80 mg DAILY ORAL 02/21/19 09:00 03/23/19 08:59 02/21/19 09:02 Heparin Sodium/ Dextrose 500 ml @ 34.101 mls/ hr ADJUST PER PROTOCOL IV 02/20/19 14:15 03/22/19 14:14 02/21/19 02:06 Lisinopril (Zestril) 10 mg BID ORAL 02/17/19 09:00 03/19/19 08:59 02/21/19 09:02 Morphine Sulfate (Morphine Sulfate) 2 mg Q4H PRN IVP PAIN 4-10 02/20/19 17:23 02/27/19 17:22 Warfarin Sodium (Coumadin per pharmacy) 1 ea DAILY PRN MISC Per rx protocol 02/16/19 19:30 03/18/19 19:29 Warfarin Sodium (Coumadin) 3 mg COUMADIN ORAL 02/21/19 17:00 02/21/19 18:00 Rosa Goodwin MD Feb 21, 2019 10:53
--- NOTE | 2019-02-21 11:16 | NUR ---
*-* INSURANCE *-* UPDATED CLINICALS AND REVIEWS HAVE BEEN FAXED TO: Leanna CM: Yolie ref#[id number] ph#[phone] cell#[phone] fax#[phone] & [employer] No CM or tracking# assigned yet PH#[phone] Addendum: 02/21/19 at 1122 by HELADIO JOSE CM *-* SPOKE WITH NCM: YOLIE RYAN AND SHE STATED SHE HAS RECEIVED CLINICALS. *-* SPOKE WITH COORDINATOR CELIA AND SHE STATED THEY HAVE RECEIVED CLINICAL NCM: WAI REF# [id number]
[2019-02-21 12:00] VITALS: BP 117/83
--- NOTE | 2019-02-21 12:00 | NUR ---
NURSE NOTES: The patient is stable without acute distress or shortness of breath. The patient's bed in the lowest position, call light in reach, and fall and aspiration precaution reinforced. Heparin drip running on R FA IV as ordered and next PTT scheduled on 02/21 @0400. Will continue plan of care.
[2019-02-21 16:00] VITALS: BP 123/90
[2019-02-21] MEDS ORDERED: Warfarin Sodium 3mg ORAL SCH (17:00)
[2019-02-21] MEDS ORDERED: Warfarin Sodium 4mg PO SCH (17:00)
--- NOTE | 2019-02-21 18:00 | NUR ---
NURSE NOTES: The patient is stable without acute distress or shortness of breath. Will continue plan of care.
--- NOTE | 2019-02-21 18:49 | Cardiology Progress Note ---
Assessment/Plan Assessment/Plan chf acute systolic cm s/p icd New diagnosis of LV thrombus will need anticoagulation heparin to Coumadin to start to day Coumadin teaching provided pt indicates has recieved paperwork not read yet encoaurge to read dariela continue chf treatment d/w pt regarding lv thrombus and risk of embolism and treatmen with anticoagualtion on acei on coreg po lasix soon home tomorrow if inr better i have explained to the pt the need to see her pmd or high school tutor and pmd for protim check and dose adjustment pt has appoint with card on 03/01 will see pmd on tuesday for protime again needs to watch na and fluid intake i gave he my card with information about her major issue needing fu pt indicated understanding my recommendations and instructions Subjective Cardiovascular: Denies: chest pain, lightheadedness, palpitations Respiratory: Denies: shortness of breath Gastrointestinal/Abdominal: Denies: abdominal pain Genitourinary: Denies: burning Subjective has walked to br no cp no sob when walks Objective Last 24 Hour Vital Signs Date Time Temp Pulse Resp B/P (MAP) Pulse Ox O2 Delivery O2 Flow Rate FiO2 02/21/19 17:33 123/90 02/21/19 16:00 97.6 97 19 123/90 (101) 100 02/21/19 16:00 87 02/21/19 12:00 84 02/21/19 12:00 97.7 90 19 117/83 (94) 98 02/21/19 09:23 88 16 98 Room Air 21 02/21/19 09:23 Room Air 21 02/21/19 09:02 116/80 02/21/19 09:01 87 116/80 02/21/19 09:00 Room Air 02/21/19 08:00 98.1 87 19 116/80 (92) 96 02/21/19 08:00 87 02/21/19 04:00 98.2 90 19 126/80 (95) 98 02/21/19 04:00 85 02/21/19 00:00 90 02/21/19 00:00 98.1 92 18 128/82 (97) 97 02/20/19 21:00 Room Air 02/20/19 20:28 80 138/74 02/20/19 20:27 86 18 97 Room Air 21 10/29/19 20:27 Room Air 21 02/20/19 20:00 98 02/20/19 20:00 97.9 91 19 138/74 (95) 98 General Appearance: no apparent distress, alert Neck: supple Cardiovascular: normal rate Respiratory/Chest: lungs clear Abdomen: normal bowel sounds, non tender, soft Extremities: normal range of motion Intake and Output 02/20/19 02/21/19 19:00 07:00 Intake Total 1026.217 ml 504.606 ml Output Total 1000 ml Balance 26.217 ml 504.606 ml Intake Oral 730 ml 300 ml IV Total 296.217 ml 204.606 ml Output Urine Total 1000 ml # Voids 3 Laboratory Tests Test 02/20/19 20:03 02/21/19 03:56 Activated Partial Thromboplast Time 94 SEC (23-33) H 83 SEC (23-33) H White Blood Count 5.7 K/UL (4.8-10.8) Red Blood Count 4.63 M/UL (4.20-5.40) Hemoglobin 12.3 G/DL (12.0-16.0) Hematocrit 37.4 % (37.0-47.0) Mean Corpuscular Volume 81 FL (80-99) Mean Corpuscular Hemoglobin 26.6 PG (27.0-31.0) L Mean Corpuscular Hemoglobin Concent 33.0 G/DL (32.0-36.0) Red Cell Distribution Width 14.3 % (11.6-14.8) Platelet Count 335 K/UL (150-450) Mean Platelet Volume 6.6 FL (6.5-10.1) Neutrophils (%) (Auto) 72.3 % (45.0-75.0) Lymphocytes (%) (Auto) 15.1 % (20.0-45.0) L Monocytes (%) (Auto) 8.5 % (1.0-10.0) Eosinophils (%) (Auto) 2.1 % (0.0-3.0) Basophils (%) (Auto) 2.0 % (0.0-2.0) Prothrombin Time 20.1 SEC (9.30-11.50) H Prothromb Time International Ratio 2.0 (0.9-1.1) H Sodium Level 138 MMOL/L (136-145) Potassium Level 3.7 MMOL/L (3.5-5.1) Chloride Level 104 MMOL/L (98-107) Carbon Dioxide Level 27 MMOL/L (21-32) Anion Gap 7 mmol/L (5-15) Blood Urea Nitrogen 15 mg/dL (7-18) Creatinine 0.9 MG/DL (0.55-1.30) Estimat Glomerular Filtration Rate > 60 mL/min (>60) Glucose Level 108 MG/DL (74-106) H Calcium Level 8.9 MG/DL (8.5-10.1) Severino Rojas MD Feb 21, 2019 18:49
--- NOTE | 2019-02-21 19:20 | NUR ---
HAND-OFF: Report given to LOLI Bowling. The patient is resting on the bed without acute distress or shortness of breath. The patient's bed in the lowest position, call light in reach, and fall and aspiration precaution reinforced. IV sites are intact and patent. Heparin drip unit and rate confirmed with LOLI Bowling. Informed that the 02/22 day shift nurse should notify INR result to Dr. Thomason for Warfarin dosage upon discharge. Endorsed plan of care.
--- NOTE | 2019-02-21 19:38 | NUR ---
NURSE NOTES: Received report from LOLI Urena. Pt resting in bed. No acute distress, no SOB. Bed in lowest position, call light within reach, all needs met. Heparin drip verified running as ordered. IV sites intact and patent. Will cont w plan of care.
[2019-02-21 20:00] VITALS: BP 107/75
[2019-02-21] MEDS: Atorvastatin 20mg tab ORAL SCH (20:56)
[2019-02-22] VITALS: BP 110/55
[2019-02-22 04:00] VITALS: BP 107/71
[2019-02-22 04:06] LABS: BASOPHILS % (AUTO) 1.2 % (0.0-2.0); EOSINOPHILS % (AUTO) 2.7 % (0.0-3.0); HEMATOCRIT 37.8 % (37.0-47.0); HEMOGLOBIN 12.2 G/DL (12.0-16.0); LYMPHOCYTES % (AUTO) 14.7 % (20.0-45.0); MEAN CORPUSCULAR VOLUME 81 FL (80-99); MONOCYTES % (AUTO) 7.5 % (1.0-10.0); NEUTROPHILS % (AUTO) 73.9 % (45.0-75.0); PLATELET COUNT 318 K/UL (150-450); RED BLOOD COUNT 4.66 M/UL (4.20-5.40); RED CELL DISTRIBUTION WIDTH 14.3 % (11.6-14.8); WHITE BLOOD COUNT 5.3 K/UL (4.8-10.8)
[2019-02-22 04:17] LABS: ANION GAP 1 mmol/L (5-15); BLOOD UREA NITROGEN 16 mg/dL (7-18); CALCIUM 8.8 MG/DL (8.5-10.1); CARBON DIOXIDE 29 MMOL/L (21-32); CHLORIDE 107 MMOL/L (98-107); POTASSIUM 4.2 MMOL/L (3.5-5.1); SODIUM 137 MMOL/L (136-145)
[2019-02-22 04:37] LABS: INR 1.7 (0.9-1.1)
[2019-02-22 05:12] LABS: PARTIAL THROMBOPLASTIN TIME > 150 SEC (23-33)
--- NOTE | 2019-02-22 05:14 | NUR ---
It was reported to me by Destin that the PTT result is greater than 150. Following current orders, I am holding the heparin for 60 minutes then will decrease by 4 units/kg/hr per order
[2019-02-22] MEDS: Heparin 25,000u/D5W 500ml 500 ML IV SCH ×3 (06:24→14:05)
--- NOTE | 2019-02-22 07:37 | NUR ---
HAND-OFF: Report given to Juany Mckee RN. Patient stable. Plan of care endorsed.
--- NOTE | 2019-02-22 07:39 | NUR ---
NURSE NOTES: Nurse report given by LOLI Plaza. Patient's awake and eating breakfast in bed. AO x4, denies pain, no s/s of distress or SOB. Bed low and locked, call light within reach, family member at bedside, side rails x 4. IV is running medication, no s/s of tenderness or redness. Will continue to monitor.
[2019-02-22 08:00] VITALS: BP 109/75
[2019-02-22] MEDS: Lisinopril 10mg tab ORAL SCH ×2 (09:01→17:17)
[2019-02-22] MEDS: Carvedilol 6.25mg Tab ORAL SCH ×2 (09:01→21:51)
[2019-02-22] MEDS: Furosemide 80mg tab ORAL SCH (09:01)
--- NOTE | 2019-02-22 10:14 | NUR ---
CASE MANAGEMENT:REVIEW 02/22/19 SI: NEW DIAGNOSIS OF LV THROMBUS NSTEMI. AC/CHR CHF. HTN; EF 25% 98.3 88 20 109/75 96% ON RA PT/INR 17.9/1.7; PTT 150 IS: GTT HEPARIN LASIX PO QD LISINOPRIL PO BID COREG PO Q12HR ALBUTEROL HHN Q6/PRN LIPITOR PO HS IV MORPHINE SULFATE Q4/PRN : 2E TELE UNIT DCP: HOME WHEN MEDICALLY CLEARED/ F/U WITH PMD COUMADIN THERAPY PLAN: COUMADIN TEACHING CHANGE IV LASIX TO PO NEEDS INR IN THERAPEUTIC RANGE 3-3.5
--- NOTE | 2019-02-22 10:33 | NUR ---
NURSE NOTES: Left message to Dr. Rojas about updated INR : 1.7. Awaiting for response.
--- NOTE | 2019-02-22 10:48 | Pulmonology Progress Note ---
Assessment/Plan Problems: (1) LV (left ventricular) mural thrombus (2) Non-ST elevation (NSTEMI) myocardial infarction (3) Bronchitis (4) Chronic systolic CHF (congestive heart failure) (5) EF of 25% Assessment/Plan on heparin drip and coumadin day 7, INR is 1.7 no new complains, doing better respiratory treatment antitussives f/u cardiology recommendations Subjective ROS Limited/Unobtainable: No Constitutional: Reports: no symptoms HEENT: Repors: no symptoms Allergies: Coded Allergies: No Known Allergies (Unverified , 10/19/16) Objective Last 24 Hour Vital Signs Date Time Temp Pulse Resp B/P (MAP) Pulse Ox O2 Delivery O2 Flow Rate FiO2 02/22/19 09:01 88 109/75 02/22/19 09:01 109/75 02/22/19 09:00 Room Air 02/22/19 08:00 98.3 88 20 109/75 (86) 96 02/22/19 08:00 93 02/22/19 04:00 98.2 95 20 107/71 (83) 100 02/22/19 04:00 108 02/22/19 00:00 94 02/22/19 00:00 98.0 89 20 110/55 (73) 100 02/21/19 21:00 Room Air 02/21/19 20:56 84 123/90 02/21/19 20:13 84 16 97 Room Air 21 02/21/19 20:13 Room Air 21 02/21/19 20:00 98.0 86 18 107/75 (86) 100 02/21/19 20:00 94 02/21/19 17:33 123/90 02/21/19 16:00 97.6 97 19 123/90 (101) 100 02/21/19 16:00 87 02/21/19 12:00 84 02/21/19 12:00 97.7 90 19 117/83 (94) 98 Intake and Output 02/21/19 02/22/19 18:59 06:59 Intake Total 1769.212 ml 34.101 ml Balance 1769.212 ml 34.101 ml Intake Oral 1360 ml IV Total 409.212 ml 34.101 ml # Voids 8 4 # Bowel Movements 1 General Appearance: WD/WN HEENT: normocephalic, atraumatic Respiratory/Chest: chest wall non-tender, lungs clear Breasts: no masses Cardiovascular: normal peripheral pulses, normal rate Abdomen: normal bowel sounds, soft, non tender Genitourinary: normal external genitalia Skin: no rash Laboratory Tests 02/22/19 04:00: White Blood Count 5.3, Red Blood Count 4.66, Hemoglobin 12.2, Hematocrit 37.8, Mean Corpuscular Volume 81, Mean Corpuscular Hemoglobin 26.2L, Mean Corpuscular Hemoglobin Concent 32.4, Red Cell Distribution Width 14.3, Platelet Count 318, Mean Platelet Volume 6.4L, Neutrophils (%) (Auto) 73.9, Lymphocytes (%) (Auto) 14.7L, Monocytes (%) (Auto) 7.5, Eosinophils (%) (Auto) 2.7, Basophils (%) (Auto ) 1.2, Prothrombin Time 17.9H, Prothromb Time International Ratio 1.7H, Activated Partial Thromboplast Time > 150*H, Sodium Level 137, Potassium Level 4.2, Chloride Level 107, Carbon Dioxide Level 29, Anion Gap 1L, Blood Urea Nitrogen 16, Creatinine 1.0, Estimat Glomerular Filtration Rate > 60, Glucose Level 110H, Calcium Level 8.8 Current Medications Medications (Trade) Dose Ordered Sig/Tristan Route PRN Reason Start Time Stop Time Status Last Admin Dose Admin Acetaminophen (Tylenol) 650 mg Q4H PRN ORAL Mild Pain/Temp > 100.5 02/21/19 11:45 03/23/19 11:44 02/21/19 11:46 Atorvastatin Calcium (Lipitor) 40 mg BEDTIME ORAL 02/14/19 21:00 03/16/19 20:59 02/21/19 20:56 Carvedilol (Coreg) 6.25 mg EVERY 12 HOURS ORAL 02/16/19 21:00 03/18/19 20:59 02/22/19 09:01 Furosemide (Lasix) 80 mg DAILY ORAL 02/21/19 09:00 03/23/19 08:59 02/22/19 09:01 Heparin Sodium/ Dextrose 500 ml @ 27.606 mls/ hr ADJUST PER PROTOCOL IV 02/22/19 06:15 03/24/19 06:14 02/22/19 09:42 Lisinopril (Zestril) 10 mg BID ORAL 02/17/19 09:00 03/19/19 08:59 02/22/19 09:01 Morphine Sulfate (Morphine Sulfate) 2 mg Q4H PRN IVP PAIN 4-10 02/20/19 17:23 02/27/19 17:22 Warfarin Sodium (Coumadin per pharmacy) 1 ea DAILY PRN MISC Per rx protocol 02/16/19 19:30 03/18/19 19:29 Warfarin Sodium (Coumadin) 5 mg COUMADIN ORAL 02/22/19 17:00 02/22/19 18:00 Rosa Goodwin MD Feb 22, 2019 10:48
[2019-02-22 12:00] VITALS: BP 148/75
[2019-02-22] MEDS ORDERED: Heparin 5000 units/ml inj IV SCH ×2 (13:29→13:30)
--- NOTE | 2019-02-22 13:36 | General Progress Note ---
Assessment/Plan Problem List: (1) HTN (hypertension) ICD Codes: I10 - Essential (primary) hypertension SNOMED: 63729726 (2) Non-ST elevation (NSTEMI) myocardial infarction ICD Codes: I21.4 - Non-ST elevation (NSTEMI) myocardial infarction SNOMED: 64024898 (3) Elevated troponin ICD Codes: R79.89 - Other specified abnormal findings of blood chemistry SNOMED: 133555194, 372901849, 066700547 (4) Acute exacerbation of CHF (congestive heart failure) ICD Codes: I50.9 - Heart failure, unspecified SNOMED: 416441040, 35646905727991, 474616381 Status: stable, progressing Assessment/Plan: pt diet pain control cardio f/u dc if clear by cardio Subjective Constitutional: Reports: weakness Allergies: Coded Allergies: No Known Allergies (Unverified , 10/19/16) All Systems: reviewed and negative except above Subjective calm in bed Objective Last 24 Hour Vital Signs Date Time Temp Pulse Resp B/P (MAP) Pulse Ox O2 Delivery O2 Flow Rate FiO2 02/22/19 12:00 97.6 89 19 148/75 (99) 100 02/22/19 12:00 95 02/22/19 09:01 88 109/75 02/22/19 09:01 109/75 02/22/19 09:00 Room Air 02/22/19 08:58 Room Air 21 02/22/19 08:58 88 18 99 Room Air 21 02/22/19 08:00 98.3 88 20 109/75 (86) 96 02/22/19 08:00 93 02/22/19 04:00 98.2 95 20 107/71 (83) 100 02/22/19 04:00 108 02/22/19 00:00 94 02/22/19 00:00 98.0 89 20 110/55 (73) 100 02/21/19 21:00 Room Air 02/21/19 20:56 84 123/90 02/21/19 20:13 84 16 97 Room Air 21 02/21/19 20:13 Room Air 21 02/21/19 20:00 98.0 86 18 107/75 (86) 100 02/21/19 20:00 94 02/21/19 17:33 123/90 02/21/19 16:00 97.6 97 19 123/90 (101) 100 02/21/19 16:00 87 Intake and Output 02/21/19 02/22/19 18:59 06:59 Intake Total 1769.212 ml 34.101 ml Balance 1769.212 ml 34.101 ml Intake Oral 1360 ml IV Total 409.212 ml 34.101 ml # Voids 8 4 # Bowel Movements 1 Laboratory Tests 02/22/19 04:00: White Blood Count 5.3, Red Blood Count 4.66, Hemoglobin 12.2, Hematocrit 37.8, Mean Corpuscular Volume 81, Mean Corpuscular Hemoglobin 26.2L, Mean Corpuscular Hemoglobin Concent 32.4, Red Cell Distribution Width 14.3, Platelet Count 318, Mean Platelet Volume 6.4L, Neutrophils (%) (Auto) 73.9, Lymphocytes (%) (Auto) 14.7L, Monocytes (%) (Auto) 7.5, Eosinophils (%) (Auto) 2.7, Basophils (%) (Auto ) 1.2, Prothrombin Time 17.9H, Prothromb Time International Ratio 1.7H, Activated Partial Thromboplast Time > 150*H, Sodium Level 137, Potassium Level 4.2, Chloride Level 107, Carbon Dioxide Level 29, Anion Gap 1L, Blood Urea Nitrogen 16, Creatinine 1.0, Estimat Glomerular Filtration Rate > 60, Glucose Level 110H, Calcium Level 8.8 02/22/19 12:15: Activated Partial Thromboplast Time 57H Height (Feet): 5 Height (Inches): 6.00 Weight (Pounds): 187 General Appearance: lethargic EENT: normal ENT inspection Neck: normal alignment Cardiovascular: normal peripheral pulses, normal rate, regular rhythm Respiratory/Chest: chest wall non-tender, lungs clear, normal breath sounds Abdomen: normal bowel sounds, non tender, soft Extremities: normal inspection Edema: no edema noted Arm (L), no edema noted Arm (R), no edema noted Leg (L), no edema noted Leg (R), no edema noted Pedal (L), no edema noted Pedal (R), no edema noted Generalized Neurologic: motor weakness Skin: normal pigmentation, warm/dry Alan Perez DO Feb 22, 2019 13:36
--- NOTE | 2019-02-22 15:00 | NUR ---
NURSE NOTES: Dr. Rojas replied and stated that patient is not cleared on his standpoint to be discharged. Order acknowledged.
[2019-02-22 16:00] VITALS: BP 119/86
--- NOTE | 2019-02-22 16:34 | NUR ---
*-* INSURANCE *-* UPDATED CLINICALS AND REVIEWS HAVE BEEN FAXED TO: Leanna PEPPER: Yolie ref#[id number] ph#[phone] cell#[phone] fax#[phone] & [employer] No CM or tracking# assigned yet PH#[phone]
[2019-02-22] MEDS ORDERED: Warfarin Sodium 5mg ORAL SCH (17:00)
--- NOTE | 2019-02-22 18:28 | Cardiology Progress Note ---
Assessment/Plan Assessment/Plan chf acute systolic cm s/p icd New diagnosis of LV thrombus will need anticoagulation heparin to Coumadin to start to day Coumadin teaching provided pt indicates has recieved paperwork not read yet encoaurge to read dariela continue chf treatment d/w pt regarding lv thrombus and risk of embolism and treatmen with anticoagualtion on acei on coreg po lasix soon home when inr more than 2.1 today was 1.7 i have explained to the pt the need to see her pmd or pecan cleaner and pmd for protim check and dose adjustment pt has appoint with card on 03/01 will see pmd on tuesday for protime again needs to watch na and fluid intake i gave he my card with information about her major issue needing fu pt indicated understanding my recommendations and instructions Subjective Cardiovascular: Denies: chest pain, irregular heart rate, lightheadedness Respiratory: Denies: shortness of breath Gastrointestinal/Abdominal: Denies: abdominal pain Genitourinary: Denies: burning Subjective has walked to br no cp no sob when walks Objective Last 24 Hour Vital Signs Date Time Temp Pulse Resp B/P (MAP) Pulse Ox O2 Delivery O2 Flow Rate FiO2 02/22/19 17:17 119/86 02/22/19 16:00 86 02/22/19 16:00 98.3 63 18 119/86 (97) 98 02/22/19 12:00 97.6 89 19 148/75 (99) 100 02/22/19 12:00 95 02/22/19 09:01 88 109/75 02/22/19 09:01 109/75 02/22/19 09:00 Room Air 02/22/19 08:58 Room Air 21 02/22/19 08:58 88 18 99 Room Air 21 02/22/19 08:00 98.3 88 20 109/75 (86) 96 02/22/19 08:00 93 02/22/19 04:00 98.2 95 20 107/71 (83) 100 02/22/19 04:00 108 02/22/19 00:00 94 02/22/19 00:00 98.0 89 20 110/55 (73) 100 02/21/19 21:00 Room Air 02/21/19 20:56 84 123/90 02/21/19 20:13 84 16 97 Room Air 21 02/21/19 20:13 Room Air 21 02/21/19 20:00 98.0 86 18 107/75 (86) 100 02/21/19 20:00 94 General Appearance: no apparent distress, alert Cardiovascular: normal rate Respiratory/Chest: lungs clear Abdomen: normal bowel sounds, non tender, soft Extremities: no swelling Intake and Output 02/21/19 02/22/19 19:00 07:00 Intake Total 1769.212 ml 140 ml Balance 1769.212 ml 140 ml Intake Oral 1360 ml 140 ml IV Total 409.212 ml # Voids 8 4 # Bowel Movements 1 Laboratory Tests Test 02/22/19 04:00 02/22/19 12:15 White Blood Count 5.3 K/UL (4.8-10.8) Red Blood Count 4.66 M/UL (4.20-5.40) Hemoglobin 12.2 G/DL (12.0-16.0) Hematocrit 37.8 % (37.0-47.0) Mean Corpuscular Volume 81 FL (80-99) Mean Corpuscular Hemoglobin 26.2 PG (27.0-31.0) L Mean Corpuscular Hemoglobin Concent 32.4 G/DL (32.0-36.0) Red Cell Distribution Width 14.3 % (11.6-14.8) Platelet Count 318 K/UL (150-450) Mean Platelet Volume 6.4 FL (6.5-10.1) L Neutrophils (%) (Auto) 73.9 % (45.0-75.0) Lymphocytes (%) (Auto) 14.7 % (20.0-45.0) L Monocytes (%) (Auto) 7.5 % (1.0-10.0) Eosinophils (%) (Auto) 2.7 % (0.0-3.0) Basophils (%) (Auto) 1.2 % (0.0-2.0) Prothrombin Time 17.9 SEC (9.30-11.50) H Prothromb Time International Ratio 1.7 (0.9-1.1) H Activated Partial Thromboplast Time > 150 SEC (23-33) *H 57 SEC (23-33) H Sodium Level 137 MMOL/L (136-145) Potassium Level 4.2 MMOL/L (3.5-5.1) Chloride Level 107 MMOL/L (98-107) Carbon Dioxide Level 29 MMOL/L (21-32) Anion Gap 1 mmol/L (5-15) L Blood Urea Nitrogen 16 mg/dL (7-18) Creatinine 1.0 MG/DL (0.55-1.30) Estimat Glomerular Filtration Rate > 60 mL/min (>60) Glucose Level 110 MG/DL (74-106) H Calcium Level 8.8 MG/DL (8.5-10.1) Severino Rojas MD Feb 22, 2019 18:28
--- NOTE | 2019-02-22 19:27 | NUR ---
HAND-OFF: Report given to Ken RN. Patient's stable. Plan of care endorsed. .
--- NOTE | 2019-02-22 19:30 | NUR ---
NURSE NOTES: Received report from LOLI Harrington. Patient is awake and responsive. Breathing regular and unlabored with no distress noted at this time. Patient's IV is intact and running Heparin at prescribed rate. Patient denies any pain at this time. Patient's bed is in lowest position, breaks engaged, and call light within reach. Will continue to monitor.
[2019-02-22 20:00] VITALS: BP 131/91
[2019-02-22] MEDS: Atorvastatin 20mg tab ORAL SCH (21:51)
[2019-02-23] VITALS (7 sets, daily range): BP systolic 106–126; BP diastolic 62–85
[2019-02-23] MEDS: Heparin 25,000u/D5W 500ml 500 ML IV SCH ×2 (03:47→16:29)
[2019-02-23 05:18] LABS: INR 1.6 (0.9-1.1)
--- NOTE | 2019-02-23 07:17 | NUR ---
HAND-OFF: Report given to LOLI Harrington. Patient in stable condition.
--- NOTE | 2019-02-23 07:19 | NUR ---
NURSE NOTES: Nurse report given by Davida RN. Patient's awake and ambulates to the bathroom. AO x 4, denies pain, no s/s of distress or SOB, breathing unlabored. Bed low and locked, call light within reach, side rails x 2. IV is running heparin drip, no s/s of tenderness or infiltration, patent and asymptomatic. All needs met. Will continue to monitor.
[2019-02-23] MEDS: Furosemide 80mg tab ORAL SCH (08:39)
[2019-02-23] MEDS: Carvedilol 6.25mg Tab ORAL SCH ×2 (08:39→21:22)
[2019-02-23] MEDS: Lisinopril 10mg tab ORAL SCH ×2 (08:39→17:54)
--- NOTE | 2019-02-23 08:58 | General Progress Note ---
Assessment/Plan Problem List: (1) HTN (hypertension) ICD Codes: I10 - Essential (primary) hypertension SNOMED: 95803223 (2) Non-ST elevation (NSTEMI) myocardial infarction ICD Codes: I21.4 - Non-ST elevation (NSTEMI) myocardial infarction SNOMED: 37823051 (3) Elevated troponin ICD Codes: R79.89 - Other specified abnormal findings of blood chemistry SNOMED: 056046175, 975567436, 112769278 (4) Acute exacerbation of CHF (congestive heart failure) ICD Codes: I50.9 - Heart failure, unspecified SNOMED: 971804397, 56803138863321, 683353453 Status: stable, progressing Assessment/Plan: pt diet pain control cardio f/u cbc bmp am dc if clear by cardio Subjective Constitutional: Reports: weakness Allergies: Coded Allergies: No Known Allergies (Unverified , 10/19/16) All Systems: reviewed and negative except above Subjective calm in bed Objective Last 24 Hour Vital Signs Date Time Temp Pulse Resp B/P (MAP) Pulse Ox O2 Delivery O2 Flow Rate FiO2 02/23/19 08:39 86 126/80 02/23/19 08:39 126/80 02/23/19 08:00 97.4 86 20 126/80 (95) 96 02/23/19 04:00 95 02/23/19 04:00 97.9 92 18 111/82 (92) 97 02/23/19 00:00 98.1 92 18 106/62 (77) 98 02/23/19 00:00 93 02/22/19 21:51 84 131/91 02/22/19 21:00 Room Air 02/22/19 20:00 97.9 84 17 131/91 (104) 100 02/22/19 20:00 97 02/22/19 17:17 119/86 02/22/19 16:00 86 02/22/19 16:00 98.3 63 18 119/86 (97) 98 02/22/19 12:00 97.6 89 19 148/75 (99) 100 02/22/19 12:00 95 02/22/19 09:01 88 109/75 02/22/19 09:01 109/75 02/22/19 09:00 Room Air 02/22/19 08:58 Room Air 21 02/22/19 08:58 88 18 99 Room Air 21 Intake and Output 02/22/19 02/23/19 19:00 07:00 Intake Total 884.742 ml 722.3 ml Balance 884.742 ml 722.3 ml Intake Oral 530 ml 360 ml IV Total 354.742 ml 362.3 ml # Voids 7 3 Laboratory Tests 02/22/19 12:15: Activated Partial Thromboplast Time 57H 02/22/19 19:45: Activated Partial Thromboplast Time 68H 02/23/19 04:25: Activated Partial Thromboplast Time 87H, Prothrombin Time 16.8H, Prothromb Time International Ratio 1.6H Height (Feet): 5 Height (Inches): 6.00 Weight (Pounds): 187 General Appearance: lethargic EENT: normal ENT inspection Neck: normal alignment Cardiovascular: normal peripheral pulses, normal rate, regular rhythm Respiratory/Chest: chest wall non-tender, lungs clear, normal breath sounds Abdomen: normal bowel sounds, non tender, soft Extremities: normal inspection Edema: no edema noted Arm (L), no edema noted Arm (R), no edema noted Leg (L), no edema noted Leg (R), no edema noted Pedal (L), no edema noted Pedal (R), no edema noted Generalized Neurologic: motor weakness Skin: normal pigmentation, warm/dry Alan Perez DO Feb 23, 2019 08:58
--- NOTE | 2019-02-23 10:04 | NUR ---
CASE MANAGEMENT:REVIEW 02/23/19 SI: NEW DIAGNOSIS OF LV THROMBUS NSTEMI. AC/CHR CHF. HTN; EF 25% 97.4 86 20 126/80 96% ON RA PT/INR 16.8/1.6; PTT 87 IS: GTT HEPARIN LASIX PO QD LISINOPRIL PO BID COREG PO Q12HR ALBUTEROL HHN Q6/PRN LIPITOR PO HS IV MORPHINE SULFATE Q4/PRN : 2E TELE UNIT DCP: HOME WHEN MEDICALLY CLEARED/ F/U WITH PMD COUMADIN THERAPY GOAL: NEEDS INR IN THERAPEUTIC RANGE 2.1 PLAN: START COUMADIN PO TONIGHT CHANGE IV LASIX TO PO
--- NOTE | 2019-02-23 11:26 | NUR ---
*-* INSURANCE *-* UPDATED CLINICALS AND REVIEWS HAVE BEEN FAXED TO: Leanna PEPPER: Yolie ref#[id number] ph#[phone] cell#[phone] fax#[phone] & [employer] No CM or tracking# assigned yet PH#[phone]
--- NOTE | 2019-02-23 12:55 | Pulmonology Progress Note ---
Assessment/Plan Problems: (1) LV (left ventricular) mural thrombus (2) Non-ST elevation (NSTEMI) myocardial infarction (3) Bronchitis (4) Chronic systolic CHF (congestive heart failure) (5) EF of 25% Assessment/Plan on heparin drip and coumadin day 8, INR is 1.6 no new complains, doing better respiratory treatment antitussives f/u cardiology recommendations Subjective ROS Limited/Unobtainable: No Constitutional: Reports: no symptoms HEENT: Repors: no symptoms Allergies: Coded Allergies: No Known Allergies (Unverified , 10/19/16) Objective Last 24 Hour Vital Signs Date Time Temp Pulse Resp B/P (MAP) Pulse Ox O2 Delivery O2 Flow Rate FiO2 02/23/19 09:00 Room Air 02/23/19 08:39 86 126/80 02/23/19 08:39 126/80 02/23/19 08:00 97.4 86 20 126/80 (95) 96 02/23/19 08:00 93 02/23/19 04:00 95 02/23/19 04:00 97.9 92 18 111/82 (92) 97 02/23/19 00:00 98.1 92 18 106/62 (77) 98 02/23/19 00:00 93 02/22/19 21:51 84 131/91 02/22/19 21:00 Room Air 02/22/19 20:00 97.9 84 17 131/91 (104) 100 02/22/19 20:00 97 02/22/19 17:17 119/86 02/22/19 16:00 86 02/22/19 16:00 98.3 63 18 119/86 (97) 98 Intake and Output 02/22/19 02/23/19 19:00 07:00 Intake Total 884.742 ml 722.3 ml Balance 884.742 ml 722.3 ml Intake Oral 530 ml 360 ml IV Total 354.742 ml 362.3 ml # Voids 7 3 General Appearance: WD/WN HEENT: normocephalic, atraumatic Respiratory/Chest: chest wall non-tender, lungs clear Breasts: no masses Cardiovascular: normal peripheral pulses Abdomen: normal bowel sounds, soft, non tender, no organomegaly Laboratory Tests 02/22/19 19:45: Activated Partial Thromboplast Time 68H 02/23/19 04:25: Activated Partial Thromboplast Time 87H, Prothrombin Time 16.8H, Prothromb Time International Ratio 1.6H Current Medications Medications (Trade) Dose Ordered Sig/Tristan Route PRN Reason Start Time Stop Time Status Last Admin Dose Admin Acetaminophen (Tylenol) 650 mg Q4H PRN ORAL Mild Pain/Temp > 100.5 02/21/19 11:45 03/23/19 11:44 02/21/19 11:46 Atorvastatin Calcium (Lipitor) 40 mg BEDTIME ORAL 02/14/19 21:00 03/16/19 20:59 02/22/19 21:51 Carvedilol (Coreg) 6.25 mg EVERY 12 HOURS ORAL 02/16/19 21:00 03/18/19 20:59 02/23/19 08:39 Furosemide (Lasix) 80 mg DAILY ORAL 02/21/19 09:00 03/23/19 08:59 02/23/19 08:39 Heparin Sodium/ Dextrose 500 ml @ 32.3 mls/hr ADJUST PER PROTOCOL IV 02/22/19 13:30 03/24/19 13:29 02/23/19 03:47 Lisinopril (Zestril) 10 mg BID ORAL 02/17/19 09:00 03/19/19 08:59 02/23/19 08:39 Morphine Sulfate (Morphine Sulfate) 2 mg Q4H PRN IVP PAIN 4-10 02/20/19 17:23 02/27/19 17:22 Warfarin Sodium (Coumadin per pharmacy) 1 ea DAILY PRN MISC Per rx protocol 02/16/19 19:30 03/18/19 19:29 Warfarin Sodium (Coumadin) 5 mg ONCE ORAL 02/23/19 17:00 02/23/19 18:00 Rosa Goodwin MD Feb 23, 2019 12:55
[2019-02-23] MEDS ORDERED: Warfarin Sodium 5mg ORAL SCH (17:00)
--- NOTE | 2019-02-23 19:20 | NUR ---
HAND-OFF: Report given to LOLI Gaona. Plan of care endorsed. Patient's stable. .
--- NOTE | 2019-02-23 20:15 | NUR ---
NURSE NOTES: Received patient from LOLI Harrington, patient in stable condition, AOx4, denies pain at this time , IV site on left hand g 24, asymptomatic, intact, patent, family member at bedside, bed low &locked, side rails upx2,call light within reach, will continue to monitor and reassess
[2019-02-23] MEDS: Atorvastatin 20mg tab ORAL SCH (21:18)
[2019-02-24 00:05] VITALS: BP 102/65
[2019-02-24 04:00] VITALS: BP 130/56
[2019-02-24 04:20] LABS: BASOPHILS % (AUTO) 2.1 % (0.0-2.0); EOSINOPHILS % (AUTO) 3.4 % (0.0-3.0); MEAN CORPUSCULAR VOLUME 80 FL (80-99); MONOCYTES % (AUTO) 8.3 % (1.0-10.0); NEUTROPHILS % (AUTO) 67.2 % (45.0-75.0); PLATELET COUNT 296 K/UL (150-450); RED CELL DISTRIBUTION WIDTH 14.2 % (11.6-14.8)
[2019-02-24 04:30] LABS: ANION GAP 6 mmol/L (5-15); BLOOD UREA NITROGEN 18 mg/dL (7-18); CARBON DIOXIDE 31 MMOL/L (21-32); CHLORIDE 106 MMOL/L (98-107); POTASSIUM 4.9 MMOL/L (3.5-5.1); SODIUM 143 MMOL/L (136-145)
[2019-02-24 04:48] LABS: INR 1.8 (0.9-1.1)
[2019-02-24] MEDS ORDERED: Heparin 25,000u/D5W 500ml 500 ML IV SCH (06:15)
[2019-02-24] MEDS: Heparin 25,000u/D5W 500ml 500 ML IV SCH ×2 (06:50→09:59)
--- NOTE | 2019-02-24 07:10 | NUR ---
NURSE NOTES: Report received from Nixon Vargas RN. Pt. AOx4. In RA. Denies pain or SOB. On Heparin drip 16u/kg/hr @ 27.2. Site intact. Teaching done. Bed on lowest position, side rails upx2, brakes engaged. Call light within easy reach.
--- NOTE | 2019-02-24 07:52 | NUR ---
HAND-OFF: Report given to LOLI Ramos, patient in stable condition, plan of care endorsed.
[2019-02-24 08:00] VITALS: BP 123/77
[2019-02-24] MEDS: Carvedilol 6.25mg Tab ORAL SCH ×2 (08:31→20:49)
[2019-02-24] MEDS: Lisinopril 10mg tab ORAL SCH ×2 (08:31→17:47)
[2019-02-24] MEDS: Furosemide 80mg tab ORAL SCH (08:32)
--- NOTE | 2019-02-24 09:11 | Pulmonology Progress Note ---
Assessment/Plan Problems: (1) LV (left ventricular) mural thrombus (2) Non-ST elevation (NSTEMI) myocardial infarction (3) Bronchitis (4) Chronic systolic CHF (congestive heart failure) (5) EF of 25% Assessment/Plan on heparin drip and coumadin day 9, INR is 1.8 no new complains, doing better respiratory treatment antitussives f/u cardiology recommendations Subjective ROS Limited/Unobtainable: Yes Constitutional: Reports: no symptoms HEENT: Repors: no symptoms Allergies: Coded Allergies: No Known Allergies (Unverified , 10/19/16) Objective Last 24 Hour Vital Signs Date Time Temp Pulse Resp B/P (MAP) Pulse Ox O2 Delivery O2 Flow Rate FiO2 02/24/19 08:31 97 123/77 02/24/19 08:31 123/77 02/24/19 08:00 97.5 97 18 123/77 (92) 98 02/24/19 04:00 98.4 97 17 130/56 (80) 97 02/24/19 04:00 95 02/24/19 00:05 98.0 100 102/65 (77) 02/24/19 00:00 106 02/23/19 21:22 96 120/81 (94) 02/23/19 21:22 96 120/81 02/23/19 21:00 Room Air 02/23/19 20:00 98.7 96 16 120/81 (94) 97 02/23/19 20:00 97 02/23/19 17:54 123/78 02/23/19 16:00 98.8 82 18 123/78 (93) 100 02/23/19 16:00 92 02/23/19 12:00 93 02/23/19 12:00 96.3 79 18 124/85 (98) 99 Intake and Output 02/23/19 02/24/19 19:00 07:00 Intake Total 463.0 ml 323.0 ml Balance 463.0 ml 323.0 ml Intake Oral 140 ml IV Total 323.0 ml 323.0 ml # Voids 3 2 General Appearance: WD/WN HEENT: normocephalic, atraumatic Respiratory/Chest: chest wall non-tender, lungs clear Breasts: no masses Cardiovascular: normal peripheral pulses Genitourinary: normal external genitalia Extremities: no clubbing 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 Laboratory Tests 02/24/19 04:10: White Blood Count 5.0, Red Blood Count 4.60, Hemoglobin 12.0, Hematocrit 37.0, Mean Corpuscular Volume 80, Mean Corpuscular Hemoglobin 26.0L, Mean Corpuscular Hemoglobin Concent 32.4, Red Cell Distribution Width 14.2, Platelet Count 296, Mean Platelet Volume 6.5, Neutrophils (%) (Auto) 67.2, Lymphocytes (%) (Auto) 19.0L, Monocytes (%) (Auto) 8.3, Eosinophils (%) (Auto) 3.4H, Basophils (%) ( Auto) 2.1H, Prothrombin Time 18.2H, Prothromb Time International Ratio 1.8H, Activated Partial Thromboplast Time 139H, Sodium Level 143, Potassium Level 4.9 , Chloride Level 106, Carbon Dioxide Level 31, Anion Gap 6, Blood Urea Nitrogen 18, Creatinine 1.0, Estimat Glomerular Filtration Rate > 60, Glucose Level 102, Calcium Level 9.0 Current Medications Medications (Trade) Dose Ordered Sig/Tristan Route PRN Reason Start Time Stop Time Status Last Admin Dose Admin Acetaminophen (Tylenol) 650 mg Q4H PRN ORAL Mild Pain/Temp > 100.5 02/21/19 11:45 03/23/19 11:44 02/21/19 11:46 Atorvastatin Calcium (Lipitor) 40 mg BEDTIME ORAL 02/14/19 21:00 03/16/19 20:59 02/23/19 21:18 Carvedilol (Coreg) 6.25 mg EVERY 12 HOURS ORAL 02/16/19 21:00 03/18/19 20:59 02/24/19 08:31 Furosemide (Lasix) 80 mg DAILY ORAL 02/21/19 09:00 03/23/19 08:59 02/24/19 08:32 Heparin Sodium/ Dextrose 500 ml @ 27.2 mls/hr ADJUST PER PROTOCOL IV 02/24/19 06:45 03/26/19 06:14 02/24/19 06:50 Lisinopril (Zestril) 10 mg BID ORAL 02/17/19 09:00 03/19/19 08:59 02/24/19 08:31 Morphine Sulfate (Morphine Sulfate) 2 mg Q4H PRN IVP PAIN 4-10 02/20/19 17:23 02/27/19 17:22 Warfarin Sodium (Coumadin per pharmacy) 1 ea DAILY PRN MISC Per rx protocol 02/16/19 19:30 03/18/19 19:29 Rosa Goodwin MD Feb 24, 2019 09:11
--- NOTE | 2019-02-24 09:53 | General Progress Note ---
Assessment/Plan Problem List: (1) HTN (hypertension) ICD Codes: I10 - Essential (primary) hypertension SNOMED: 87091968 (2) Non-ST elevation (NSTEMI) myocardial infarction ICD Codes: I21.4 - Non-ST elevation (NSTEMI) myocardial infarction SNOMED: 12168471 (3) Elevated troponin ICD Codes: R79.89 - Other specified abnormal findings of blood chemistry SNOMED: 859795132, 364221867, 121912393 (4) Acute exacerbation of CHF (congestive heart failure) ICD Codes: I50.9 - Heart failure, unspecified SNOMED: 691867628, [id number], 948966030 Status: stable, progressing Assessment/Plan: pt diet pain control cardio f/u cbc bmp am dc if clear by cardio Subjective Constitutional: Reports: weakness Allergies: Coded Allergies: No Known Allergies (Unverified , 10/19/16) All Systems: reviewed and negative except above Subjective calm in bed Objective Last 24 Hour Vital Signs Date Time Temp Pulse Resp B/P (MAP) Pulse Ox O2 Delivery O2 Flow Rate FiO2 02/24/19 09:00 Room Air 02/24/19 08:31 97 123/77 02/24/19 08:31 123/77 02/24/19 08:00 97.5 97 18 123/77 (92) 98 02/24/19 08:00 90 02/24/19 04:00 98.4 97 17 130/56 (80) 97 02/24/19 04:00 95 02/24/19 00:05 98.0 100 102/65 (77) 02/24/19 00:00 106 02/23/19 21:22 96 120/81 (94) 02/23/19 21:22 96 120/81 02/23/19 21:00 Room Air 02/23/19 20:00 98.7 96 16 120/81 (94) 97 02/23/19 20:00 97 02/23/19 17:54 123/78 02/23/19 16:00 98.8 82 18 123/78 (93) 100 02/23/19 16:00 92 02/23/19 12:00 93 02/23/19 12:00 96.3 79 18 124/85 (98) 99 Intake and Output 02/23/19 02/24/19 19:00 07:00 Intake Total 463.0 ml 323.0 ml Balance 463.0 ml 323.0 ml Intake Oral 140 ml IV Total 323.0 ml 323.0 ml # Voids 3 2 Laboratory Tests 02/24/19 04:10: White Blood Count 5.0, Red Blood Count 4.60, Hemoglobin 12.0, Hematocrit 37.0, Mean Corpuscular Volume 80, Mean Corpuscular Hemoglobin 26.0L, Mean Corpuscular Hemoglobin Concent 32.4, Red Cell Distribution Width 14.2, Platelet Count 296, Mean Platelet Volume 6.5, Neutrophils (%) (Auto) 67.2, Lymphocytes (%) (Auto) 19.0L, Monocytes (%) (Auto) 8.3, Eosinophils (%) (Auto) 3.4H, Basophils (%) ( Auto) 2.1H, Prothrombin Time 18.2H, Prothromb Time International Ratio 1.8H, Activated Partial Thromboplast Time 139H, Sodium Level 143, Potassium Level 4.9 , Chloride Level 106, Carbon Dioxide Level 31, Anion Gap 6, Blood Urea Nitrogen 18, Creatinine 1.0, Estimat Glomerular Filtration Rate > 60, Glucose Level 102, Calcium Level 9.0 Height (Feet): 5 Height (Inches): 6.00 Weight (Pounds): 187 General Appearance: alert EENT: normal ENT inspection Neck: normal alignment Cardiovascular: normal peripheral pulses, normal rate, regular rhythm Respiratory/Chest: chest wall non-tender, lungs clear, normal breath sounds Abdomen: normal bowel sounds, non tender, soft Extremities: normal inspection Edema: no edema noted Arm (L), no edema noted Arm (R), no edema noted Leg (L), no edema noted Leg (R), no edema noted Pedal (L), no edema noted Pedal (R), no edema noted Generalized Neurologic: responsive, motor weakness Skin: normal pigmentation, warm/dry Alan Perez DO Feb 24, 2019 09:53
[2019-02-24 12:00] VITALS: BP 110/75
--- NOTE | 2019-02-24 12:15 | Cardiology Progress Note ---
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 and pmd for protim check and dose adjustment pt has appoint with card on 03/01 will see pmd on tuesday for protime again needs to watch na and fluid intake i gave he my card with information about her major issue needing fu pt indicated understanding my recommendations and instructions Subjective Cardiovascular: Denies: chest pain, lightheadedness Respiratory: Denies: shortness of breath Gastrointestinal/Abdominal: Denies: abdominal pain Subjective has walked to br no cp no sob when walks Objective Last 24 Hour Vital Signs Date Time Temp Pulse Resp B/P (MAP) Pulse Ox O2 Delivery O2 Flow Rate FiO2 02/24/19 09:00 Room Air 02/24/19 08:31 97 123/77 02/24/19 08:31 123/77 02/24/19 08:00 97.5 97 18 123/77 (92) 98 02/24/19 08:00 90 02/24/19 04:00 98.4 97 17 130/56 (80) 97 02/24/19 04:00 95 02/24/19 00:05 98.0 100 102/65 (77) 02/24/19 00:00 106 02/23/19 21:22 96 120/81 (94) 02/23/19 21:22 96 120/81 02/23/19 21:00 Room Air 02/23/19 20:00 98.7 96 16 120/81 (94) 97 02/23/19 20:00 97 02/23/19 17:54 123/78 02/23/19 16:00 98.8 82 18 123/78 (93) 100 02/23/19 16:00 92 General Appearance: no apparent distress, alert Neck: supple Cardiovascular: normal rate Respiratory/Chest: lungs clear Abdomen: normal bowel sounds, non tender, soft Extremities: no swelling Intake and Output 02/23/19 02/24/19 19:00 07:00 Intake Total 463.0 ml 323.0 ml Balance 463.0 ml 323.0 ml Intake Oral 140 ml IV Total 323.0 ml 323.0 ml # Voids 3 2 Laboratory Tests Test 02/24/19 04:10 White Blood Count 5.0 K/UL (4.8-10.8) Red Blood Count 4.60 M/UL (4.20-5.40) Hemoglobin 12.0 G/DL (12.0-16.0) Hematocrit 37.0 % (37.0-47.0) Mean Corpuscular Volume 80 FL (80-99) Mean Corpuscular Hemoglobin 26.0 PG (27.0-31.0) L Mean Corpuscular Hemoglobin Concent 32.4 G/DL (32.0-36.0) Red Cell Distribution Width 14.2 % (11.6-14.8) Platelet Count 296 K/UL (150-450) Mean Platelet Volume 6.5 FL (6.5-10.1) Neutrophils (%) (Auto) 67.2 % (45.0-75.0) Lymphocytes (%) (Auto) 19.0 % (20.0-45.0) L Monocytes (%) (Auto) 8.3 % (1.0-10.0) Eosinophils (%) (Auto) 3.4 % (0.0-3.0) H Basophils (%) (Auto) 2.1 % (0.0-2.0) H Prothrombin Time 18.2 SEC (9.30-11.50) H Prothromb Time International Ratio 1.8 (0.9-1.1) H Activated Partial Thromboplast Time 139 SEC (23-33) H Sodium Level 143 MMOL/L (136-145) Potassium Level 4.9 MMOL/L (3.5-5.1) Chloride Level 106 MMOL/L (98-107) Carbon Dioxide Level 31 MMOL/L (21-32) Anion Gap 6 mmol/L (5-15) Blood Urea Nitrogen 18 mg/dL (7-18) Creatinine 1.0 MG/DL (0.55-1.30) Estimat Glomerular Filtration Rate > 60 mL/min (>60) Glucose Level 102 MG/DL (74-106) Calcium Level 9.0 MG/DL (8.5-10.1) Objective Current Medications Medications (Trade) Dose Ordered Sig/Tristan Route PRN Reason Start Time Stop Time Status Last Admin Dose Admin Acetaminophen (Tylenol) 650 mg Q4H PRN ORAL Mild Pain/Temp > 100.5 02/21/19 11:45 03/23/19 11:44 02/21/19 11:46 Atorvastatin Calcium (Lipitor) 40 mg BEDTIME ORAL 02/14/19 21:00 03/16/19 20:59 02/23/19 21:18 Carvedilol (Coreg) 6.25 mg EVERY 12 HOURS ORAL 02/16/19 21:00 03/18/19 20:59 02/24/19 08:31 Furosemide (Lasix) 80 mg DAILY ORAL 02/21/19 09:00 03/23/19 08:59 02/24/19 08:32 Heparin Sodium/ Dextrose 500 ml @ 27.2 mls/hr ADJUST PER PROTOCOL IV 02/24/19 06:45 03/26/19 06:14 02/24/19 09:59 Lisinopril (Zestril) 10 mg BID ORAL 02/17/19 09:00 03/19/19 08:59 02/24/19 08:31 Morphine Sulfate (Morphine Sulfate) 2 mg Q4H PRN IVP PAIN 4-10 02/20/19 17:23 02/27/19 17:22 Warfarin Sodium (Coumadin per pharmacy) 1 ea DAILY PRN MISC Per rx protocol 02/16/19 19:30 03/18/19 19:29 Warfarin Sodium (Coumadin) 5 mg COUMADIN ONCE ORAL 02/24/19 17:00 02/24/19 17:01 Severino Rojas MD Feb 24, 2019 12:15
--- NOTE | 2019-02-24 15:38 | NUR ---
NURSE NOTES: Left a message to Dr. Alan Perez Patients complaint of dizziness. Waiting for a call back.
[2019-02-24 16:00] VITALS: BP 121/91
[2019-02-24] MEDS ORDERED: Warfarin Sodium 5mg ORAL ONE (17:00)
--- NOTE | 2019-02-24 17:21 | NUR ---
NURSE NOTES: Left a message to Dr. Perez Patients vomiting and dizziness.
--- NOTE | 2019-02-24 18:10 | NUR ---
NURSE NOTES: Stopped Heparin drip per MD order.
--- NOTE | 2019-02-24 19:10 | NUR ---
NURSE NOTES: Pt report received from Rachel ENNIS. pt remains stable. pt is alert and oriented times 4, able to follow commands. pt is on a cardiac care nurse showing NSR, no distress noted. pt is on Room air, able to sat at 99, no distress noted. pt bed is low locked, armed, bed rails up times 2, call light within reach. will follow plan of care.
--- NOTE | 2019-02-24 19:10 | NUR ---
NURSE NOTES: Pt. left for head CT.
[2019-02-24] MEDS ORDERED: Metoclopramide 10mg/2ml Inj IVP PRN (19:30)
--- NOTE | 2019-02-24 19:30 | NUR ---
HAND-OFF: Report given to LOLI Pete. Plan of care endorsed.
--- NOTE | 2019-02-24 19:40 | NUR ---
NURSE NOTES: Receiving nurse to follow up with head CT results and Orthostatic VS to communicate with Dr. Rojas.
--- NOTE | 2019-02-24 19:40 | NUR ---
NURSE NOTES: Pt sent down for imaging.
[2019-02-24 20:00] VITALS: BP 115/86
--- NOTE | 2019-02-24 20:00 | NUR ---
NURSE NOTES: Report given to fpc RNGregory, confirmed to follow up with Dr. Shea regarding Pt's antibiotic order. Addendum: 02/24/19 at 2032 by Rachel Medina RN WRONG PT.
--- NOTE | 2019-02-24 20:26 | Diagnostic Imaging Report ---
CT HEAD WITHOUT CONTRAST INDICATION: Reason For Exam: DIZZY Technique: Continuous helical CT scanning of the head was performed without intravenous contrast material. Axial and coronal 5 mm sections were generated. Radiation dose was minimized using automated exposure control DOSE: Total Dose Length Product - DLP 12 [address] Dose Index - CTDIvol(s) 60 mGy. COMPARISON: None available FINDINGS: There is no acute intracranial hemorrhage, mass effect or cortical edema. The ventricles, cisterns and sulci are normal for age. Visualized mastoid air cells and paranasal sinuses are unremarkable. No focal lesions of the bony calvarium or soft tissues of the scalp are seen. IMPRESSION: No evidence of acute intracranial hemorrhage, mass effect or cortical edema. MRI may be obtained for more sensitive evaluation as clinically indicated. These findings are concordant with the [facility] preliminary report. The CT scanner at [facility] is accredited by the [employer] and the scans are performed using protocols designed to limit radiation exposure to as low as reasonably achievable to attain images of sufficient resolution adequate for diagnostic evaluation.
--- NOTE | 2019-02-24 20:30 | NUR ---
NURSE NOTES: Pt returned from Imaging.
[2019-02-24] MEDS: D5 1/2NS 1,000 ML IV SCH (20:48)
[2019-02-24] MEDS: Atorvastatin 20mg tab ORAL SCH (20:49)
--- NOTE | 2019-02-24 21:41 | NUR ---
NURSE NOTES: [facility] called. stated to asked MD for DC orders on hep and PTT. additionally, stated to asked pipeline if needed for Hep drip IV. HEP IV is still on hold until further orders.
--- NOTE | 2019-02-24 23:50 | NUR ---
NURSE NOTES: Spoke with Elinor Fuenteswelt stitcher for CT head imaging reports. she stated imaging has not been resulted, yet. she stated she will call back with updates.
--- NOTE | 2019-02-24 23:52 | NUR ---
NURSE NOTES: Elinor called back and read the results for head CT. pt head CT is negative.
--- NOTE | 2019-02-24 23:59 | NUR ---
NURSE NOTES: Called MD Rojas, Reported Head CT results. stated to continue Hep drip. will call pipeline to verify order.
[2019-02-25] VITALS: BP 126/89
--- NOTE | 2019-02-25 00:08 | NUR ---
NURSE NOTES: spoke with Daja [facility]odaca pharmacist, reported lab values and status of pt, as well as imagining. she stated to continue same hep drip as MD Rojas ordered. additionally, will order timed PTT her Hep drip protocol 4 hrs from when started. Addendum: 02/25/19 at 0025 by JEB MCKINLEY RN NURSE NOTES: spoke with Daja apodaca pharmacist, reported lab values and status of pt, as well as imagining. she stated to continue same hep drip as MD Rojas ordered. additionally, will order timed PTT her Hep drip protocol 4 hrs from when started. Addendum: 02/25/19 at 0026 by JEB MCKINLEY RN NURSE NOTES: spoke with Daja boyer, reported lab values and status of pt, as well as imagining. she stated to continue same hep drip as MD Rojas ordered. additionally, will order timed PTT her Hep drip protocol 6 hrs from when started.
[2019-02-25] MEDS: Heparin 25,000u/D5W 500ml 500 ML IV SCH ×2 (00:25→15:59)
--- NOTE | 2019-02-25 00:30 | NUR ---
NURSE NOTES: removed IV 24 G on L hand, IV line found leaking, no other abnormalities. new IV started L Fore arm 18 G at 0030 running Heparin drip and new IV 18G R wrist started running D5 1/2 NS. no abnormalities noted to new sites.
[2019-02-25 04:00] VITALS: BP 149/88
[2019-02-25 05:20] LABS: INR 1.6 (0.9-1.1)
--- NOTE | 2019-02-25 05:48 | NUR ---
NURSE NOTES: Pharmacist Gerald called from [facility]. she needed to verify PTT that came back from 0400 lab work. i informed her the 624 PTT lab work is what is needed for patients HEP drip to be adjusted or continued. Pharmacist stated she will go off the 624 PTT lab work for further administration of HEP drip. will continue to monitor.
--- NOTE | 2019-02-25 06:15 | NUR ---
NURSE NOTES: called Lab, Spoke with Alex buckle and button maker , relayed message stating PTT timed is to be due at 0625, separate from the rest of the 0400 labs. got a pt label and handed the label to buckle and button maker Mary who is taking timed PTT labs for 0625. will continue to monitor.
[2019-02-25 06:28] LABS: BASOPHILS % (AUTO) 2.6 % (0.0-2.0); EOSINOPHILS % (AUTO) 2.2 % (0.0-3.0); HEMATOCRIT 35.7 % (37.0-47.0); HEMOGLOBIN 11.5 G/DL (12.0-16.0); LYMPHOCYTES % (AUTO) 15.7 % (20.0-45.0); MEAN CORPUSCULAR VOLUME 81 FL (80-99); MONOCYTES % (AUTO) 9.3 % (1.0-10.0); NEUTROPHILS % (AUTO) 70.2 % (45.0-75.0); PLATELET COUNT 288 K/UL (150-450); RED BLOOD COUNT 4.38 M/UL (4.20-5.40); RED CELL DISTRIBUTION WIDTH 14.5 % (11.6-14.8); WHITE BLOOD COUNT 4.5 K/UL (4.8-10.8)
[2019-02-25 07:16] LABS: ALANINE AMINOTRANSFERASE 43 U/L (12-78); ALBUMIN 2.7 G/DL (3.4-5.0); ALBUMIN/GLOBULIN RATIO 0.9 (1.0-2.7); ALKALINE PHOSPHATASE 55 U/L (46-116); ANION GAP 7 mmol/L (5-15); ASPARTATE AMINO TRANSFERASE 16 U/L (15-37); BILIRUBIN,TOTAL 0.4 MG/DL (0.2-1.0); BLOOD UREA NITROGEN 14 mg/dL (7-18); CALCIUM 9.1 MG/DL (8.5-10.1); CARBON DIOXIDE 29 MMOL/L (21-32); CHLORIDE 107 MMOL/L (98-107); PHOSPHORUS 4.8 MG/DL (2.5-4.9); POTASSIUM 4.1 MMOL/L (3.5-5.1); SODIUM 143 MMOL/L (136-145)
--- NOTE | 2019-02-25 07:16 | NUR ---
HAND-OFF: Report given to Rachel ENNIS. Pt remains stable.
--- NOTE | 2019-02-25 07:20 | NUR ---
NURSE NOTES: Report received from LOLI Pete. Pt. AOx4. In RA. Denies any pain or discomfort. No N/V or diarrhea after 9pm yesterday night. L FA 18g IV running Heparin, R wrist 18g running D5 1/2 NS @ 75, both sites intact. Bed on lowest position, side rails upx2, brakes engaged. Call light within easy reach.
[2019-02-25] MEDS ORDERED: Heparin 25,000u/D5W 500ml 500 ML IV SCH (07:30)
[2019-02-25] MEDS ORDERED: Heparin 5000 units/ml inj IV SCH (07:30)
--- NOTE | 2019-02-25 07:54 | General Progress Note ---
Assessment/Plan Problem List: (1) HTN (hypertension) ICD Codes: I10 - Essential (primary) hypertension SNOMED: 76012468 (2) Non-ST elevation (NSTEMI) myocardial infarction ICD Codes: I21.4 - Non-ST elevation (NSTEMI) myocardial infarction SNOMED: 90652086 (3) Elevated troponin ICD Codes: R79.89 - Other specified abnormal findings of blood chemistry SNOMED: 858423918, 861854400, 640426045 (4) Acute exacerbation of CHF (congestive heart failure) ICD Codes: I50.9 - Heart failure, unspecified SNOMED: 533866794, 13453865622087, 582044177 Status: stable, progressing Assessment/Plan: pt diet pain control cardio f/u cbc bmp am dc if clear by cardio Subjective Constitutional: Reports: weakness Allergies: Coded Allergies: No Known Allergies (Unverified , 10/19/16) All Systems: reviewed and negative except above Subjective calm in bed Objective Last 24 Hour Vital Signs Date Time Temp Pulse Resp B/P (MAP) Pulse Ox O2 Delivery O2 Flow Rate FiO2 02/25/19 04:00 97.9 92 19 149/88 (108) 98 02/25/19 04:00 87 02/25/19 00:00 97.8 94 20 126/89 (101) 99 02/25/19 00:00 98 02/24/19 21:00 Room Air 02/24/19 20:49 96 115/86 02/24/19 20:00 86 02/24/19 20:00 97.7 96 20 115/86 (96) 99 02/24/19 19:10 90 97 99 02/24/19 17:47 121/91 02/24/19 16:00 98.2 91 18 121/91 (101) 99 02/24/19 16:00 96 02/24/19 12:00 88 02/24/19 12:00 97.3 98 18 110/75 (87) 98 02/24/19 09:00 Room Air 02/24/19 08:31 97 123/77 02/24/19 08:31 123/77 02/24/19 08:00 97.5 97 18 123/77 (92) 98 02/24/19 08:00 90 Intake and Output 02/24/19 02/25/19 19:00 07:00 Intake Total 600 ml 913.2 ml Balance 600 ml 913.2 ml Intake Oral 600 ml IV Total 913.2 ml # Voids 4 # Bowel Movements 1 Laboratory Tests 02/24/19 12:48: Activated Partial Thromboplast Time 78H 02/25/19 04:30: Activated Partial Thromboplast Time 54H, White Blood Count 4.5L, Red Blood Count 4.38, Hemoglobin 11.5L, Hematocrit 35.7L, Mean Corpuscular Volume 81, Mean Corpuscular Hemoglobin 26.3L, Mean Corpuscular Hemoglobin Concent 32.3, Red Cell Distribution Width 14.5, Platelet Count 288, Mean Platelet Volume 6.6, Neutrophils (%) (Auto) 70.2, Lymphocytes (%) (Auto) 15.7L, Monocytes (%) (Auto) 9.3, Eosinophils (%) (Auto) 2.2, Basophils (%) (Auto) 2.6H, Prothrombin Time 16.3H, Prothromb Time International Ratio 1.6H, Sodium Level 143, Potassium Level 4.1, Chloride Level 107, Carbon Dioxide Level 29, Anion Gap 7, Blood Urea Nitrogen 14, Creatinine 1.0, Estimat Glomerular Filtration Rate > 60, Glucose Level 102, Calcium Level 9.1, Phosphorus Level 4.8, Magnesium Level 2.0, Total Bilirubin 0.4, Aspartate Amino Transf (AST/SGOT) 16, Alanine Aminotransferase ( ALT/SGPT) 43, Alkaline Phosphatase 55, Total Protein 5.8L, Albumin 2.7L, Globulin 3.1, Albumin/Globulin Ratio 0.9L 02/25/19 06:25: Activated Partial Thromboplast Time 59H Height (Feet): 5 Height (Inches): 6.00 Weight (Pounds): 187 General Appearance: lethargic EENT: normal ENT inspection Neck: normal alignment Cardiovascular: normal peripheral pulses, normal rate, regular rhythm Respiratory/Chest: chest wall non-tender, lungs clear, normal breath sounds Abdomen: normal bowel sounds, non tender, soft Extremities: normal inspection Edema: no edema noted Arm (L), no edema noted Arm (R), no edema noted Leg (L), no edema noted Leg (R), no edema noted Pedal (L), no edema noted Pedal (R), no edema noted Generalized Neurologic: responsive, motor weakness Skin: normal pigmentation, warm/dry Alan Perez DO Feb 25, 2019 07:54
[2019-02-25 08:00] VITALS: BP 116/83
[2019-02-25] MEDS: Carvedilol 6.25mg Tab ORAL SCH ×2 (08:09→20:45)
[2019-02-25] MEDS: Furosemide 80mg tab ORAL SCH (08:09)
[2019-02-25] MEDS: Lisinopril 10mg tab ORAL SCH ×2 (08:10→17:25)
[2019-02-25] MEDS: D5 1/2NS 1,000 ML IV SCH (08:12)
--- NOTE | 2019-02-25 08:57 | Pulmonology Progress Note ---
Assessment/Plan Problems: (1) LV (left ventricular) mural thrombus (2) Non-ST elevation (NSTEMI) myocardial infarction (3) Bronchitis (4) Chronic systolic CHF (congestive heart failure) (5) EF of 25% Assessment/Plan episode of dizziness, nausea and vomiting yesterday, resolved spontaneously on heparin drip and coumadin day 10, INR is 1.6 no new complains, doing better respiratory treatment antitussives f/u cardiology recommendations Subjective ROS Limited/Unobtainable: No Constitutional: Reports: no symptoms HEENT: Repors: no symptoms Respiratory: Reports: no symptoms Allergies: Coded Allergies: No Known Allergies (Unverified , 10/19/16) Objective Last 24 Hour Vital Signs Date Time Temp Pulse Resp B/P (MAP) Pulse Ox O2 Delivery O2 Flow Rate FiO2 02/25/19 08:10 116/83 02/25/19 08:09 88 116/83 02/25/19 08:00 97.9 88 18 116/83 (94) 98 02/25/19 04:00 97.9 92 19 149/88 (108) 98 02/25/19 04:00 87 02/25/19 00:00 97.8 94 20 126/89 (101) 99 02/25/19 00:00 98 02/24/19 21:00 Room Air 02/24/19 20:49 96 115/86 02/24/19 20:00 86 02/24/19 20:00 97.7 96 20 115/86 (96) 99 02/24/19 19:10 90 97 99 02/24/19 17:47 121/91 02/24/19 16:00 98.2 91 18 121/91 (101) 99 02/24/19 16:00 96 02/24/19 12:00 88 02/24/19 12:00 97.3 98 18 110/75 (87) 98 02/24/19 09:00 Room Air Intake and Output 02/24/19 02/25/19 19:00 07:00 Intake Total 600 ml 913.2 ml Balance 600 ml 913.2 ml Intake Oral 600 ml IV Total 913.2 ml # Voids 4 # Bowel Movements 1 General Appearance: WD/WN HEENT: normocephalic, atraumatic Respiratory/Chest: chest wall non-tender, lungs clear Breasts: no masses Cardiovascular: normal peripheral pulses Abdomen: normal bowel sounds, soft, non tender Genitourinary: normal external genitalia Extremities: no cyanosis Neurologic/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: 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 grossly normal Laboratory Tests 02/24/19 12:48: Activated Partial Thromboplast Time 78H 02/25/19 04:30: Activated Partial Thromboplast Time 54H, White Blood Count 4.5L, Red Blood Count 4.38, Hemoglobin 11.5L, Hematocrit 35.7L, Mean Corpuscular Volume 81, Mean Corpuscular Hemoglobin 26.3L, Mean Corpuscular Hemoglobin Concent 32.3, Red Cell Distribution Width 14.5, Platelet Count 288, Mean Platelet Volume 6.6, Neutrophils (%) (Auto) 70.2, Lymphocytes (%) (Auto) 15.7L, Monocytes (%) (Auto) 9.3, Eosinophils (%) (Auto) 2.2, Basophils (%) (Auto) 2.6H, Prothrombin Time 16.3H, Prothromb Time International Ratio 1.6H, Sodium Level 143, Potassium Level 4.1, Chloride Level 107, Carbon Dioxide Level 29, Anion Gap 7, Blood Urea Nitrogen 14, Creatinine 1.0, Estimat Glomerular Filtration Rate > 60, Glucose Level 102, Calcium Level 9.1, Phosphorus Level 4.8, Magnesium Level 2.0, Total Bilirubin 0.4, Aspartate Amino Transf (AST/SGOT) 16, Alanine Aminotransferase ( ALT/SGPT) 43, Alkaline Phosphatase 55, Total Protein 5.8L, Albumin 2.7L, Globulin 3.1, Albumin/Globulin Ratio 0.9L 02/25/19 06:25: Activated Partial Thromboplast Time 59H Current Medications Medications (Trade) Dose Ordered Sig/Tristan Route PRN Reason Start Time Stop Time Status Last Admin Dose Admin Acetaminophen (Tylenol) 650 mg Q4H PRN ORAL Mild Pain/Temp > 100.5 02/21/19 11:45 03/23/19 11:44 02/21/19 11:46 Atorvastatin Calcium (Lipitor) 40 mg BEDTIME ORAL 02/14/19 21:00 03/16/19 20:59 02/24/19 20:49 Carvedilol (Coreg) 6.25 mg EVERY 12 HOURS ORAL 02/16/19 21:00 03/18/19 20:59 02/25/19 08:09 Dextrose/Sodium Chloride 1,000 ml @ 75 mls/hr [id number] IV 02/24/19 19:15 03/26/19 19:14 02/25/19 08:12 Furosemide (Lasix) 80 mg DAILY ORAL 02/21/19 09:00 03/23/19 08:59 02/25/19 08:09 Heparin Sodium (Porcine) (Heparin 5000 units/ml) 3,500 units ONCE IV 02/25/19 07:30 02/25/19 09:00 02/25/19 08:16 Heparin Sodium/ Dextrose 500 ml @ 30.6 mls/hr ADJUST PER PROTOCOL IV 02/25/19 07:30 03/27/19 07:29 02/25/19 08:18 Lisinopril (Zestril) 15 mg BID ORAL 02/24/19 18:00 03/26/19 17:59 02/25/19 08:10 Metoclopramide HCl (Reglan) 5 mg Q6H PRN IVP Nausea & Vomiting 02/24/19 19:30 03/26/19 19:29 Morphine Sulfate (Morphine Sulfate) 2 mg Q4H PRN IVP PAIN 4-10 02/20/19 17:23 02/27/19 17:22 Ondansetron HCl (Zofran) 4 mg Q4H PRN IVP Nausea & Vomiting 02/24/19 17:30 03/26/19 17:29 02/24/19 17:47 Warfarin Sodium (Coumadin per pharmacy) 1 ea DAILY PRN MISC Per rx protocol 02/16/19 19:30 03/18/19 19:29 Warfarin Sodium (Coumadin) 7.5 mg COUMADIN ONCE ORAL 02/25/19 17:00 02/25/19 17:01 Rosa Goodwin MD Feb 25, 2019 08:57
[2019-02-25] MEDS ORDERED: D5 1/2NS 1000ml IV ONE (09:56)
--- NOTE | 2019-02-25 11:16 | Cardiology Progress Note ---
Assessment/Plan Assessment/Plan chf acute systolic cm s/p icd New diagnosis of LV thrombus dizziness will need anticoagulation heparin to Coumadin still ub therpeutic inr i didsucced with pharmacy !!! Coumadin teaching provided pt indicates has recieved paperwork not read yet encoaurge to read dariela continue chf treatment on acei on coreg po lasix s home when inr more than 2.1 today was 1.6 today i have explained to the pt the need to see her pmd or equestrian trainer and pmd for protim check and dose adjustment again needs to watch na and fluid intake i gave he my card with information about her major issue needing fu pt indicated understanding my recommendations and instructions i had multiple phone call form staff late evening and through ou the nite regrding dizziness , , heparin was stopped momentrily ct was neg heeparisn resumed d/w pharmacy and rn today ambulate was not orthostatic yewsst Subjective Cardiovascular: Reports: lightheadedness - imporved this amd ; Denies: chest pain, palpitations Respiratory: Denies: shortness of breath Gastrointestinal/Abdominal: Denies: abdominal pain Genitourinary: Denies: burning Subjective has walked to br no cp no sob when walks Objective Last 24 Hour Vital Signs Date Time Temp Pulse Resp B/P (MAP) Pulse Ox O2 Delivery O2 Flow Rate FiO2 02/25/19 09:00 Room Air 02/25/19 08:10 116/83 02/25/19 08:09 88 116/83 02/25/19 08:00 87 02/25/19 08:00 97.9 88 18 116/83 (94) 98 02/25/19 04:00 97.9 92 19 149/88 (108) 98 02/25/19 04:00 87 02/25/19 00:00 97.8 94 20 126/89 (101) 99 02/25/19 00:00 98 02/24/19 21:00 Room Air 02/24/19 20:49 96 115/86 02/24/19 20:00 86 02/24/19 20:00 97.7 96 20 115/86 (96) 99 02/24/19 19:10 90 97 99 02/24/19 17:47 121/91 02/24/19 16:00 98.2 91 18 121/91 (101) 99 02/24/19 16:00 96 11/2/19 12:00 88 02/24/19 12:00 97.3 98 18 110/75 (87) 98 General Appearance: alert Neck: supple Cardiovascular: regular rhythm Respiratory/Chest: lungs clear Abdomen: normal bowel sounds, non tender, soft Extremities: no swelling Intake and Output 02/24/19 02/25/19 19:00 07:00 Intake Total 600 ml 913.2 ml Balance 600 ml 913.2 ml Intake Oral 600 ml IV Total 913.2 ml # Voids 4 # Bowel Movements 1 Laboratory Tests Test 02/24/19 12:48 02/25/19 04:30 02/25/19 06:25 Activated Partial Thromboplast Time 78 SEC (23-33) H 54 SEC (23-33) H 59 SEC (23-33) H White Blood Count 4.5 K/UL (4.8-10.8) L Red Blood Count 4.38 M/UL (4.20-5.40) Hemoglobin 11.5 G/DL (12.0-16.0) L Hematocrit 35.7 % (37.0-47.0) L Mean Corpuscular Volume 81 FL (80-99) Mean Corpuscular Hemoglobin 26.3 PG (27.0-31.0) L Mean Corpuscular Hemoglobin Concent 32.3 G/DL (32.0-36.0) Red Cell Distribution Width 14.5 % (11.6-14.8) Platelet Count 288 K/UL (150-450) Mean Platelet Volume 6.6 FL (6.5-10.1) Neutrophils (%) (Auto) 70.2 % (45.0-75.0) Lymphocytes (%) (Auto) 15.7 % (20.0-45.0) L Monocytes (%) (Auto) 9.3 % (1.0-10.0) Eosinophils (%) (Auto) 2.2 % (0.0-3.0) Basophils (%) (Auto) 2.6 % (0.0-2.0) H Prothrombin Time 16.3 SEC (9.30-11.50) H Prothromb Time International Ratio 1.6 (0.9-1.1) H Sodium Level 143 MMOL/L (136-145) Potassium Level 4.1 MMOL/L (3.5-5.1) Chloride Level 107 MMOL/L (98-107) Carbon Dioxide Level 29 MMOL/L (21-32) Anion Gap 7 mmol/L (5-15) Blood Urea Nitrogen 14 mg/dL (7-18) Creatinine 1.0 MG/DL (0.55-1.30) Estimat Glomerular Filtration Rate > 60 mL/min (>60) Glucose Level 102 MG/DL (74-106) Calcium Level 9.1 MG/DL (8.5-10.1) Phosphorus Level 4.8 MG/DL (2.5-4.9) Magnesium Level 2.0 MG/DL (1.8-2.4) Total Bilirubin 0.4 MG/DL (0.2-1.0) Aspartate Amino Transf (AST/SGOT) 16 U/L (15-37) Alanine Aminotransferase (ALT/SGPT) 43 U/L (12-78) Alkaline Phosphatase 55 U/L (46-116) Total Protein 5.8 G/DL (6.4-8.2) L Albumin 2.7 G/DL (3.4-5.0) L Globulin 3.1 g/dL Albumin/Globulin Ratio 0.9 (1.0-2.7) L Objective Current Medications Medications (Trade) Dose Ordered Sig/Tristan Route PRN Reason Start Time Stop Time Status Last Admin Dose Admin Acetaminophen (Tylenol) 650 mg Q4H PRN ORAL Mild Pain/Temp > 100.5 02/21/19 11:45 03/23/19 11:44 02/21/19 11:46 Atorvastatin Calcium (Lipitor) 40 mg BEDTIME ORAL 02/14/19 21:00 03/16/19 20:59 02/23/19 21:18 Carvedilol (Coreg) 6.25 mg EVERY 12 HOURS ORAL 02/16/19 21:00 03/18/19 20:59 02/24/19 08:31 Furosemide (Lasix) 80 mg DAILY ORAL 02/21/19 09:00 03/23/19 08:59 02/24/19 08:32 Heparin Sodium/ Dextrose 500 ml @ 27.2 mls/hr ADJUST PER PROTOCOL IV 02/24/19 06:45 03/26/19 06:14 02/24/19 09:59 Lisinopril (Zestril) 10 mg BID ORAL 02/17/19 09:00 03/19/19 08:59 02/24/19 08:31 Morphine Sulfate (Morphine Sulfate) 2 mg Q4H PRN IVP PAIN 4-10 02/20/19 17:23 02/27/19 17:22 Warfarin Sodium (Coumadin per pharmacy) 1 ea DAILY PRN MISC Per rx protocol 02/16/19 19:30 03/18/19 19:29 Warfarin Sodium (Coumadin) 5 mg COUMADIN ONCE ORAL 02/24/19 17:00 02/24/19 17:01 Severino Rojas MD Feb 25, 2019 11:16
--- NOTE | 2019-02-25 11:24 | General Progress Note ---
Assessment/Plan Status: stable, progressing Assessment/Plan: GI CONSULT Dictated N/V and diarrhea yesturday, now resolved ? Gastroenteritis Will follow Thank you Jhon Aviles MD Subjective Allergies: Coded Allergies: No Known Allergies (Unverified , 10/19/16) Objective Last 24 Hour Vital Signs Date Time Temp Pulse Resp B/P (MAP) Pulse Ox O2 Delivery O2 Flow Rate FiO2 02/25/19 09:00 Room Air 02/25/19 08:10 116/83 02/25/19 08:09 88 116/83 02/25/19 08:00 87 02/25/19 08:00 97.9 88 18 116/83 (94) 98 02/25/19 04:00 97.9 92 19 149/88 (108) 98 02/25/19 04:00 87 02/25/19 00:00 97.8 94 20 126/89 (101) 99 02/25/19 00:00 98 02/24/19 21:00 Room Air 02/24/19 20:49 96 115/86 02/24/19 20:00 86 02/24/19 20:00 97.7 96 20 115/86 (96) 99 02/24/19 19:10 90 97 99 02/24/19 17:47 121/91 02/24/19 16:00 98.2 91 18 121/91 (101) 99 02/24/19 16:00 96 02/24/19 12:00 88 02/24/19 12:00 97.3 98 18 110/75 (87) 98 Intake and Output 02/24/19 02/25/19 19:00 07:00 Intake Total 600 ml 913.2 ml Balance 600 ml 913.2 ml Intake Oral 600 ml IV Total 913.2 ml # Voids 4 # Bowel Movements 1 Laboratory Tests 02/24/19 12:48: Activated Partial Thromboplast Time 78H 02/25/19 04:30: Activated Partial Thromboplast Time 54H, White Blood Count 4.5L, Red Blood Count 4.38, Hemoglobin 11.5L, Hematocrit 35.7L, Mean Corpuscular Volume 81, Mean Corpuscular Hemoglobin 26.3L, Mean Corpuscular Hemoglobin Concent 32.3, Red Cell Distribution Width 14.5, Platelet Count 288, Mean Platelet Volume 6.6, Neutrophils (%) (Auto) 70.2, Lymphocytes (%) (Auto) 15.7L, Monocytes (%) (Auto) 9.3, Eosinophils (%) (Auto) 2.2, Basophils (%) (Auto) 2.6H, Prothrombin Time 16.3H, Prothromb Time International Ratio 1.6H, Sodium Level 143, Potassium Level 4.1, Chloride Level 107, Carbon Dioxide Level 29, Anion Gap 7, Blood Urea Nitrogen 14, Creatinine 1.0, Estimat Glomerular Filtration Rate > 60, Glucose Level 102, Calcium Level 9.1, Phosphorus Level 4.8, Magnesium Level 2.0, Total Bilirubin 0.4, Aspartate Amino Transf (AST/SGOT) 16, Alanine Aminotransferase ( ALT/SGPT) 43, Alkaline Phosphatase 55, Total Protein 5.8L, Albumin 2.7L, Globulin 3.1, Albumin/Globulin Ratio 0.9L 02/25/19 06:25: Activated Partial Thromboplast Time 59H Height (Feet): 5 Height (Inches): 6.00 Weight (Pounds): 187 Jhon Aviles MD Feb 25, 2019 11:23
[2019-02-25] MEDS ORDERED: Warfarin Sodium 7.5mg ORAL ONE ×2 (11:30→17:00)
[2019-02-25 12:00] VITALS: BP 121/81
[2019-02-25 16:00] VITALS: BP 110/82
--- NOTE | 2019-02-25 17:20 | NUR ---
CASE MANAGEMENT:REVIEW 02/24/19 SI: NEW DIAGNOSIS OF LV THROMBUS NSTEMI. AC/CHR CHF. HTN; EF 25% T 97.7 HR 96 RR 20 B/P 115/86 SATS 99% ON RA LABS: WNL IS: GTT HEPARIN LASIX PO QD LISINOPRIL PO BID COREG PO Q12HR ALBUTEROL HHN Q6/PRN LIPITOR PO HS IV MORPHINE SULFATE Q4/PRN : 2E TELE UNIT DCP: HOME WHEN MEDICALLY CLEARED/ F/U WITH PMD COUMADIN THERAPY 02/25/19 SI: NEW DIAGNOSIS OF LV THROMBUS NSTEMI. AC/CHR CHF. HTN; EF 25% T 98.2 HR 93 RR 18 B/P 110/82 SATS 98% ON RA LABS: WBC 4.5 IS: GTT HEPARIN LASIX PO QD LISINOPRIL PO BID COREG PO Q12HR ALBUTEROL HHN Q6/PRN LIPITOR PO HS IV MORPHINE SULFATE Q4/PRN : 2E TELE UNIT DCP: HOME WHEN MEDICALLY CLEARED/ F/U WITH PMD COUMADIN THERAPY
--- NOTE | 2019-02-25 17:40 | NUR ---
HAND-OFF: Report given to LOLI Lino. Pt. in stable condition. Family at bedside. Heparin rate checked with incoming RN. Plan of care endorsed.
[2019-02-25 20:00] VITALS: BP 111/79
--- NOTE | 2019-02-25 20:05 | NUR ---
NURSE NOTES: RECEIVED PATIENT RESTING IN BED, NO COMPLAINTS OF PAIN AT THIS TIME. HEPARIN DRIP AT 25.5ML/HR. NEXT PTT AT 2200. FALL PRECAUTIONS IN PLACE: CALL LIGHT, BEDSIDE TABLE AND COMMODE WITHIN REACH, BED IN LOW POSITION. FAMILY AT BEDSIDE. PLAN OF CARE REVIEWED.
[2019-02-25] MEDS: Atorvastatin 20mg tab ORAL SCH (20:44)
--- NOTE | 2019-02-25 21:00 | Consultation ---
DATE OF CONSULTATION: 02/25/2019 GASTROENTEROLOGY CONSULTATION CONSULTING PHYSICIAN: Jhon Aviles M.D. REFERRING PHYSICIAN: Alan Perez D.O. CHIEF COMPLAINT: I was asked to see this patient by Dr. Alan Perez for evaluation of nausea, vomiting, and diarrhea. HISTORY OF PRESENT ILLNESS: The patient is a pleasant 53-year-old woman with multiple medical problems, who came into the hospital due to increasing shortness of breath. She has been seen by multiple consultants and has been treated congestive heart failure and elevated troponin. The patient was doing well until yesterday when she started to have several bouts of nausea, vomiting, and diarrhea. Therefore, this consultation was generated. She was placed on IV fluids and anti-emetics were given. She feels back to normal today and has had no further nausea, vomiting, or diarrhea since yesterday. The patient has not had a colonoscopy and she was advised that she should receive one for screening purposes as an outpatient when her medical conditions are stabilized. She denies any hematochezia. PAST MEDICAL HISTORY: History of malnutrition, congestive heart failure, status post pacemaker, and status post hysterectomy. ALLERGIES: None. MEDICATIONS: See the chart list for details. FAMILY HISTORY: Noncontributory. SOCIAL HISTORY: The patient does not smoke or drink alcohol. REVIEW OF SYSTEMS: Otherwise negative. PHYSICAL EXAMINATION: GENERAL: A pleasant woman, seen in her room. HEENT: Normocephalic and atraumatic. Sclerae are anicteric. Oropharynx is clear. NECK: Supple. CHEST: Clear to auscultation. CARDIOVASCULAR: Revealed regular rate. ABDOMEN: Soft with no tenderness and no masses. EXTREMITIES: Revealed no edema. LABORATORY DATA: Noted. ASSESSMENT: This patient has been admitted predominantly with cardiac symptoms and has been treated appropriately. The episode yesterday with nausea, vomiting, and diarrhea was brief and self-limited and likely a transient viral process. Since she is asymptomatic today, I would manage her conservatively. Should her symptoms recur, then further workup may be necessary. For the time being, however, I would observe her and follow. The patient was advised to have a screening colonoscopy as an outpatient. RECOMMENDATIONS: 1. Continue current diet. 2. Follow for recurrent symptoms. 3. Outpatient screening colonoscopy. Thank you for asking me to participate in the care of this patient. Jhon Aviles M.D. DR: WALDO JOB#: [id number] CC:
--- NOTE | 2019-02-25 23:45 | NUR ---
NURSE NOTES: PTT 79. PER HEPARIN DRIP PROTOCOL NO CHANGE IN PRESENT RATE 25.5 ML/HR OR 15 UNITS/KG/HR AND NEXT PTT IN AM
[2019-02-26] VITALS: BP 105/61
[2019-02-26] MEDS: Heparin 25,000u/D5W 500ml 500 ML IV SCH (00:36)
[2019-02-26 04:00] VITALS: BP 115/87
[2019-02-26 05:06] LABS: BASOPHILS % (AUTO) 2.9 % (0.0-2.0); EOSINOPHILS % (AUTO) 3.7 % (0.0-3.0); HEMATOCRIT 35.1 % (37.0-47.0); HEMOGLOBIN 11.1 G/DL (12.0-16.0); LYMPHOCYTES % (AUTO) 15.7 % (20.0-45.0); MEAN CORPUSCULAR VOLUME 81 FL (80-99); MONOCYTES % (AUTO) 8.8 % (1.0-10.0); NEUTROPHILS % (AUTO) 68.9 % (45.0-75.0); PLATELET COUNT 270 K/UL (150-450); RED CELL DISTRIBUTION WIDTH 14.2 % (11.6-14.8)
[2019-02-26 05:11] LABS: INR 2.1 (0.9-1.1)
[2019-02-26 05:13] LABS: ANION GAP 6 mmol/L (5-15); BLOOD UREA NITROGEN 17 mg/dL (7-18); CARBON DIOXIDE 30 MMOL/L (21-32); CHLORIDE 107 MMOL/L (98-107); POTASSIUM 4.5 MMOL/L (3.5-5.1); SODIUM 142 MMOL/L (136-145)
--- NOTE | 2019-02-26 05:45 | NUR ---
NURSE NOTES: PTT 84. PER HEPARIN DRIP PROTOCOL NO CHANGE IN CURRENT RATE 25.5ML/HR OR 15 UNITS/KG/HR. NEXT PTT TOMORROW AM
--- NOTE | 2019-02-26 07:24 | NUR ---
NURSE NOTES: received patient report from nae alcala rn. patient is on bed awake. ambulatory steady. on hep drip at prescribed rate. next aptt sched for sarita. not in acute distress. skin is intact. no bleeding noted. will follow plan of care.
--- NOTE | 2019-02-26 07:36 | NUR ---
HAND-OFF: Report given to Keo GODINEZ RN.PATIENT RESTING IN BED, NO SIGNS OF DISTRESS NOTED.
[2019-02-26 08:00] VITALS: BP 111/85
[2019-02-26] MEDS: Furosemide 80mg tab ORAL SCH (08:24)
[2019-02-26 08:25] VITALS: BP 111/85
[2019-02-26] MEDS: Lisinopril 10mg tab ORAL SCH (08:25)
[2019-02-26] MEDS: Carvedilol 6.25mg Tab ORAL SCH (08:25)
--- NOTE | 2019-02-26 09:36 | General Progress Note ---
Assessment/Plan Problem List: (1) HTN (hypertension) ICD Codes: I10 - Essential (primary) hypertension SNOMED: 33220339 (2) Non-ST elevation (NSTEMI) myocardial infarction ICD Codes: I21.4 - Non-ST elevation (NSTEMI) myocardial infarction SNOMED: 76205841 (3) Elevated troponin ICD Codes: R79.89 - Other specified abnormal findings of blood chemistry SNOMED: 752018480, 230669213, 565441252 (4) Acute exacerbation of CHF (congestive heart failure) ICD Codes: I50.9 - Heart failure, unspecified SNOMED: 981481575, 89090354042487, 736147205 Status: stable, progressing Assessment/Plan: pt diet pain control cardio f/u cbc bmp am dc if clear by cardio Subjective Constitutional: Reports: weakness Allergies: Coded Allergies: No Known Allergies (Unverified , 10/19/16) All Systems: reviewed and negative except above Subjective calm in bed Objective Last 24 Hour Vital Signs Date Time Temp Pulse Resp B/P (MAP) Pulse Ox O2 Delivery O2 Flow Rate FiO2 02/26/19 08:36 91 94 95 02/26/19 08:34 Room Air 02/26/19 08:25 111/85 02/26/19 08:25 94 111/85 02/26/19 08:00 97.5 94 18 111/85 (94) 96 02/26/19 04:00 88 02/26/19 04:00 97.5 89 18 115/87 (96) 100 02/26/19 00:00 93 02/26/19 00:00 97.7 93 18 105/61 (76) 98 02/25/19 21:00 Room Air 02/25/19 20:45 80 111/79 02/25/19 20:00 101 02/25/19 20:00 98.2 80 18 111/79 (90) 99 02/25/19 17:25 110/82 02/25/19 16:00 85 02/25/19 16:00 98.2 93 18 110/82 (91) 98 02/25/19 12:00 97.8 92 18 121/81 (94) 96 02/25/19 12:00 89 Intake and Output 02/25/19 02/26/19 19:00 07:00 Intake Total 745.5 ml 400.2 ml Balance 745.5 ml 400.2 ml Intake Oral 720 ml 120 ml IV Total 25.5 ml 280.2 ml # Voids 3 2 Laboratory Tests 02/25/19 14:17: Activated Partial Thromboplast Time 113H 02/25/19 22:10: Activated Partial Thromboplast Time 79H 02/26/19 04:00: Activated Partial Thromboplast Time 84H, White Blood Count 5.0, Red Blood Count 4.30, Hemoglobin 11.1L, Hematocrit 35.1L, Mean Corpuscular Volume 81, Mean Corpuscular Hemoglobin 25.8L, Mean Corpuscular Hemoglobin Concent 31.7L, Red Cell Distribution Width 14.2, Platelet Count 270, Mean Platelet Volume 7.3, Neutrophils (%) (Auto) 68.9, Lymphocytes (%) (Auto) 15.7L, Monocytes (%) (Auto) 8.8, Eosinophils (%) (Auto) 3.7H, Basophils (%) (Auto) 2.9H, Prothrombin Time 21.7H, Prothromb Time International Ratio 2.1H, Sodium Level 142, Potassium Level 4.5, Chloride Level 107, Carbon Dioxide Level 30, Anion Gap 6, Blood Urea Nitrogen 17, Creatinine 1.0, Estimat Glomerular Filtration Rate > 60, Glucose Level 98, Calcium Level 9.0 Height (Feet): 5 Height (Inches): 6.00 Weight (Pounds): 187 General Appearance: lethargic EENT: normal ENT inspection Neck: normal alignment Cardiovascular: normal peripheral pulses, normal rate, regular rhythm Respiratory/Chest: chest wall non-tender, lungs clear, normal breath sounds Abdomen: normal bowel sounds, non tender, soft Extremities: normal inspection Edema: no edema noted Arm (L), no edema noted Arm (R), no edema noted Leg (L), no edema noted Leg (R), no edema noted Pedal (L), no edema noted Pedal (R), no edema noted Generalized Neurologic: motor weakness Skin: normal pigmentation, warm/dry Alan Perez DO Feb 26, 2019 09:36
--- NOTE | 2019-02-26 11:06 | NUR ---
CASE MANAGEMENT:REVIEW 02/25/19 SI: NEW DIAGNOSIS OF LV THROMBUS NSTEMI. AC/CHR CHF. HTN; EF 25% 97.9 88 18 116/83 98% ON RA WBC 4.5; H/H 11.5/35.7 PTT 113 IS: PO COUMADIN X1 GTT HEPARIN LASIX PO QD LISINOPRIL PO BID COREG PO Q12HR ALBUTEROL HHN Q6/PRN LIPITOR PO HS : 2E TELE UNIT DCP: HOME WHEN MEDICALLY CLEARED/ F/U WITH PMD COUMADIN THERAPY CASE MANAGEMENT: REVIEW 02/26/19 SI: NEW DIAGNOSIS OF LV THROMBUS NSTEMI. AC/CHR CHF. HTN; EF 25% 97.5 94 18 111/85 96% ON RA H/H 11.1/35.1 PT/INR 21.7/2.1; PTT 84 IS: GTT HEPARIN LASIX PO QD LISINOPRIL PO BID COREG PO Q12HR ALBUTEROL HHN Q6/PRN LIPITOR PO HS IV MORPHINE SULFATE Q4/PRN : 2E TELE UNIT DCP: HOME WHEN MEDICALLY CLEARED/ F/U WITH PMD COUMADIN THERAPY
--- NOTE | 2019-02-26 11:15 | NUR ---
*-* INSURANCE *-* UPDATED CLINICALS AND REVIEWS HAVE BEEN FAXED TO: Leanna PEPPER: Yolie ref#[id number] ph#[phone] cell#[phone] fax#[phone] & [employer] No CM or tracking# assigned yet PH#[phone]
--- NOTE | 2019-02-26 11:18 | NUR ---
NURSE NOTES: LEFT A MESSAGE TO DR TILLMAN REGARDING PATIENTS INR TODAY OF 2.1.AND FOR CLEARANCE TO GO HOME. AWAITS CALLBACK AND NEW ORDER.
[2019-02-26] MEDS ORDERED: FUROSEMIDE80 MG ORAL (11:29)
[2019-02-26] MEDS ORDERED: COUMADIN7.5 MG ORAL (11:29)
[2019-02-26] MEDS ORDERED: COREG6.25 MG ORAL (11:29)
[2019-02-26] MEDS ORDERED: ZESTRIL10 M1 ORAL (11:29)
--- NOTE | 2019-02-26 11:31 | Pulmonology Progress Note ---
Assessment/Plan Problems: (1) LV (left ventricular) mural thrombus (2) Non-ST elevation (NSTEMI) myocardial infarction (3) Bronchitis (4) Chronic systolic CHF (congestive heart failure) (5) EF of 25% Assessment/Plan episode of dizziness, nausea and vomiting yesterday, resolved spontaneously on heparin drip and coumadin day 11, INR is 2, on Coumadin 7.5 mg no new complains, doing better respiratory treatment antitussives f/u cardiology recommendations Subjective ROS Limited/Unobtainable: No Constitutional: Reports: no symptoms HEENT: Repors: no symptoms Respiratory: Reports: no symptoms Allergies: Coded Allergies: No Known Allergies (Unverified , 10/19/16) Objective Last 24 Hour Vital Signs Date Time Temp Pulse Resp B/P (MAP) Pulse Ox O2 Delivery O2 Flow Rate FiO2 02/26/19 08:36 91 94 95 02/26/19 08:34 Room Air 02/26/19 08:25 111/85 02/26/19 08:25 94 111/85 02/26/19 08:00 97.5 94 18 111/85 (94) 96 02/26/19 07:58 92 02/26/19 04:00 88 02/26/19 04:00 97.5 89 18 115/87 (96) 100 02/26/19 00:00 93 02/26/19 00:00 97.7 93 18 105/61 (76) 98 02/25/19 21:00 Room Air 02/25/19 20:45 80 111/79 02/25/19 20:00 101 02/25/19 20:00 98.2 80 18 111/79 (90) 99 02/25/19 17:25 110/82 02/25/19 16:00 85 02/25/19 16:00 98.2 93 18 110/82 (91) 98 02/25/19 12:00 97.8 92 18 121/81 (94) 96 02/25/19 12:00 89 Intake and Output 02/25/19 02/26/19 19:00 07:00 Intake Total 745.5 ml 400.2 ml Balance 745.5 ml 400.2 ml Intake Oral 720 ml 120 ml IV Total 25.5 ml 280.2 ml # Voids 3 2 General Appearance: WD/WN HEENT: normocephalic, atraumatic Respiratory/Chest: chest wall non-tender, lungs clear Breasts: no masses Cardiovascular: normal peripheral pulses, normal rate Abdomen: normal bowel sounds, soft, non tender, no organomegaly Genitourinary: normal external genitalia Skin: no rash Neurologic/Psychiatric: harness repairer II-XII grossly normal Laboratory Tests 02/25/19 14:17: Activated Partial Thromboplast Time 113H 02/25/19 22:10: Activated Partial Thromboplast Time 79H 02/26/19 04:00: Activated Partial Thromboplast Time 84H, White Blood Count 5.0, Red Blood Count 4.30, Hemoglobin 11.1L, Hematocrit 35.1L, Mean Corpuscular Volume 81, Mean Corpuscular Hemoglobin 25.8L, Mean Corpuscular Hemoglobin Concent 31.7L, Red Cell Distribution Width 14.2, Platelet Count 270, Mean Platelet Volume 7.3, Neutrophils (%) (Auto) 68.9, Lymphocytes (%) (Auto) 15.7L, Monocytes (%) (Auto) 8.8, Eosinophils (%) (Auto) 3.7H, Basophils (%) (Auto) 2.9H, Prothrombin Time 21.7H, Prothromb Time International Ratio 2.1H, Sodium Level 142, Potassium Level 4.5, Chloride Level 107, Carbon Dioxide Level 30, Anion Gap 6, Blood Urea Nitrogen 17, Creatinine 1.0, Estimat Glomerular Filtration Rate > 60, Glucose Level 98, Calcium Level 9.0 Current Medications Medications (Trade) Dose Ordered Sig/Tristan Route PRN Reason Start Time Stop Time Status Last Admin Dose Admin Acetaminophen (Tylenol) 650 mg Q4H PRN ORAL Mild Pain/Temp > 100.5 02/21/19 11:45 03/23/19 11:44 02/21/19 11:46 Atorvastatin Calcium (Lipitor) 40 mg BEDTIME ORAL 02/14/19 21:00 03/16/19 20:59 02/25/19 20:44 Carvedilol (Coreg) 6.25 mg EVERY 12 HOURS ORAL 02/16/19 21:00 03/18/19 20:59 02/26/19 08:25 Furosemide (Lasix) 80 mg DAILY ORAL 02/21/19 09:00 03/23/19 08:59 02/26/19 08:24 Heparin Sodium/ Dextrose 500 ml @ 25.5 mls/hr ADJUST PER PROTOCOL IV 02/25/19 16:00 03/27/19 15:59 02/26/19 00:36 Lisinopril (Zestril) 15 mg BID ORAL 02/24/19 18:00 03/26/19 17:59 02/26/19 08:25 Metoclopramide HCl (Reglan) 5 mg Q6H PRN IVP Nausea & Vomiting 02/24/19 19:30 03/26/19 19:29 Morphine Sulfate (Morphine Sulfate) 2 mg Q4H PRN IVP PAIN 4-10 02/20/19 17:23 02/27/19 17:22 Ondansetron HCl (Zofran) 4 mg Q4H PRN IVP Nausea & Vomiting 02/24/19 17:30 03/26/19 17:29 02/24/19 17:47 Warfarin Sodium (Coumadin per pharmacy) 1 ea DAILY PRN MISC Per rx protocol 02/16/19 19:30 03/18/19 19:29 Warfarin Sodium (Coumadin) 3 mg COUMADIN ORAL 02/27/19 17:00 03/04/19 16:59 Warfarin Sodium (Coumadin) 4 mg COUMADIN PO 02/27/19 17:00 03/04/19 16:59 Warfarin Sodium (Coumadin) 7.5 mg COUMADIN ORAL 02/26/19 17:00 02/26/19 18:00 Rosa Goodwin MD Feb 26, 2019 11:31
--- NOTE | 2019-02-26 12:38 | GI Progress Note ---
Assessment/Plan Problems: (1) Nausea and vomiting ICD Codes: R11.2 - Nausea with vomiting, unspecified SNOMED: 34261506 (2) Acute exacerbation of CHF (congestive heart failure) ICD Codes: I50.9 - Heart failure, unspecified SNOMED: 470208957, 06229242903311, 280657656 Status: stable, unchanged Status Narrative Discussed with Dr. Garcia Assessment/Plan Nausea vomiting, diarrhea resolved ?Gastroenteritis Symptomatic treatment at this time Advance diet as tolerated IV and p.o. hydration Zofran as needed PPI Follow labs Outpatient GI procedures The patient was seen and examined at bedside and all new and available data was reviewed in the patients chart. I agree with the above findings, impression and plan. (Patient seen earlier today. Signature stamp does not reflect patient encounter time.). - Arsenio Garcia MD Subjective Subjective Patient states her nausea and vomiting has resolved Tolerating diet Denies any diarrhea Objective Last 24 Hour Vital Signs Date Time Temp Pulse Resp B/P (MAP) Pulse Ox O2 Delivery O2 Flow Rate FiO2 02/26/19 08:36 91 94 95 02/26/19 08:34 Room Air 02/26/19 08:25 111/85 02/26/19 08:25 94 111/85 02/26/19 08:00 97.5 94 18 111/85 (94) 96 02/26/19 07:58 92 02/26/19 04:00 88 02/26/19 04:00 97.5 89 18 115/87 (96) 100 02/26/19 00:00 93 02/26/19 00:00 97.7 93 18 105/61 (76) 98 02/25/19 21:00 Room Air 02/25/19 20:45 80 111/79 02/25/19 20:00 101 02/25/19 20:00 98.2 80 18 111/79 (90) 99 02/25/19 17:25 110/82 02/25/19 16:00 85 02/25/19 16:00 98.2 93 18 110/82 (91) 98 Intake and Output 02/25/19 02/26/19 19:00 07:00 Intake Total 745.5 ml 400.2 ml Balance 745.5 ml 400.2 ml Intake Oral 720 ml 120 ml IV Total 25.5 ml 280.2 ml # Voids 3 2 Laboratory Tests Test 02/25/19 14:17 02/25/19 22:10 02/26/19 04:00 Activated Partial Thromboplast Time 113 SEC (23-33) H 79 SEC (23-33) H 84 SEC (23-33) H White Blood Count 5.0 K/UL (4.8-10.8) Red Blood Count 4.30 M/UL (4.20-5.40) Hemoglobin 11.1 G/DL (12.0-16.0) L Hematocrit 35.1 % (37.0-47.0) L Mean Corpuscular Volume 81 FL (80-99) Mean Corpuscular Hemoglobin 25.8 PG (27.0-31.0) L Mean Corpuscular Hemoglobin Concent 31.7 G/DL (32.0-36.0) L Red Cell Distribution Width 14.2 % (11.6-14.8) Platelet Count 270 K/UL (150-450) Mean Platelet Volume 7.3 FL (6.5-10.1) Neutrophils (%) (Auto) 68.9 % (45.0-75.0) Lymphocytes (%) (Auto) 15.7 % (20.0-45.0) L Monocytes (%) (Auto) 8.8 % (1.0-10.0) Eosinophils (%) (Auto) 3.7 % (0.0-3.0) H Basophils (%) (Auto) 2.9 % (0.0-2.0) H Prothrombin Time 21.7 SEC (9.30-11.50) H Prothromb Time International Ratio 2.1 (0.9-1.1) H Sodium Level 142 MMOL/L (136-145) Potassium Level 4.5 MMOL/L (3.5-5.1) Chloride Level 107 MMOL/L (98-107) Carbon Dioxide Level 30 MMOL/L (21-32) Anion Gap 6 mmol/L (5-15) Blood Urea Nitrogen 17 mg/dL (7-18) Creatinine 1.0 MG/DL (0.55-1.30) Estimat Glomerular Filtration Rate > 60 mL/min (>60) Glucose Level 98 MG/DL (74-106) Calcium Level 9.0 MG/DL (8.5-10.1) Height (Feet): 5 Height (Inches): 6.00 Weight (Pounds): 187 General Appearance: WD/WN, no apparent distress, alert Cardiovascular: normal rate Respiratory/Chest: normal breath sounds, no respiratory distress Abdominal Exam: normal bowel sounds, non tender, soft Extremities: normal range of motion, non-tender Cherrie Zarco NP Feb 26, 2019 12:38
--- NOTE | 2019-02-26 14:00 | NUR ---
NURSE NOTES: patient was discharged home per dr fleming order. dr banuelos cleared the patient for discharge. education regarding patients condition and medications were given. patient verbalized understanding. new RX given per dr herbert.monitor car operator removed and bleeding was stopped. no further bleeding noted. belongings cheked and signed by the patient and myself. patients own medications were given back, bag sealed. patient went home via a private vehicle with boyfriend. patient is stable not in acute distress.
[2019-02-26] MEDS ORDERED: Warfarin Sodium 7.5mg ORAL SCH (17:00)
--- NOTE | 2019-02-27 07:31 | Cardiology Report ---
APPROVED REPORT EKG Measurement Heart [id number] Sinus with epicardial ventricular paced rhythm
--- NOTE | 2019-02-27 12:02 | Discharge Summary ---
Discharge Summary Discharge Summary _ DATE OF ADMISSION: 02/11/2019 DATE OF DISCHARGE: 02/26/2019 DISCHARGED BY: Dr Perez REASON FOR ADMISSION: 53 years old female with past medical history of hypertension, congestive heart failure, pacemaker, presented to emergency department complaining of 2 to 3 days of dyspnea on exertion, shortness of breath, cough with clear sputum, ankle edema. Patient denied leg pain. Patient denied chest pain or dizziness. Patient reported being compliant with her diuretic medications, but had some dietary indiscretions , including lots of fluid and salt intake. Upon evaluation vital signs were stable ; pulse oximetry was 94% on room air. Laboratory work-up revealed no leukocytosis, stable hemoglobin and hematocrit. Sodium 147. Glucose 114. Stable other electrolytes and renal parameters. Elevated troponin 0.065. Pro BNP 8090. EKG revealed paced rhythm , no acute changes. Chest x-ray demonstrated pulmonary vascular congestion without consolidation. Moderate cardiomegaly. Unchanged left upper chest AICD. Patient subsequently admitted to telemetry floor for further management. CONSULTANTS: anglesmith helper Dr. Rojas pulmonary Dr. Goodwin GI specialist Dr. Aviles [facility]: Patient admitted to telemetry floor. Patient started on IV diuresis with close monitoring of volumes and cardiorenal parameters. Svp Operations and welt beater closely followed. Echocardiogram revealed mobile echogenic density in the left ventricle apex , highly suggestive of thrombus. Four-chamber dilated cardiomyopathy with global left ventricular hypokinesis , except the septal wall which was dyskinetic . Mild left ventricular enlargement. Left ventricular ejection fraction estimated to be 10%. M Mild left ventricular hypertrophy. Moderate left atrial enlargement. AICD wires present in the right-sided chambers. Moderate mitral regurgitation. Moderate to severe tricuspid regurgitation. Right ventricular systolic pressure of 75, consistent with severe pulmonary hypertension. Patient started on anticoagulation. Initially patient was on the heparin drip and bridged to Coumadin to keep INR in therapeutic range. Guideline directed medical therapy for congestive heart failure continued, including beta-susy , CASANDRA inhibitor and diuretic. Patient was educated on fluid and sodium restriction. Serial troponin were monitored. Levels were minimally, elevated, no complaints of chest pain. Possible NSTEMI . Coumadin teaching provided. INR remained subtherapeutic. Patient was continued on Heparin drip and Coumadin per pharmacy dosing. Svp Operations discussed with patient treatment for LV thrombus and risk of embolism . Patient complained of dizziness . Heparin drip was stopped, and patient undergone CT of the head, which revealed no acute intracranial hemorrhage, mass-effect or cortical edema. Heparin subsequently was resumed. Patient was given extensive information regarding outpatient follow-up with primary care provider and or anglesmith helper for pro time check and dose adjustment. Patient was counseled on sodium and fluid intake. As patient clinically improved , IV Lasix was converted to oral route. Statin continued. Supplemental oxygen provided as needed to keep pulse oximetry above 92%. Bronchodilator treatment provided. Antitussive provided as needed. Patient was counseled on smoking cessation. Patient declined nicotine patch. Pain management was addressed. Supportive care provided. Electrolytes replaced as needed. GI specialist consulted due to patient's complaint of nausea , vomiting , and diarrhea. The symptoms were brief and self-limited , likely due to viral process. GI specialist recommended to manage her conservatively. If symptoms recur, then further work-up should be necessary. At this time GI specialist recommended to observe the patient. Patient was advised to have a screening colonoscopy as an outpatient. Symptoms resolved. Patient was able to tolerate diet. Finally on 02/26 INR 2.1. Heparin drip discontinued. Patient received prescription for Coumadin with follow-up next week with primary care provider or anglesmith helper for checking of protime. Patient clinically stabilized and was ready for discharge. FINAL DIAGNOSES: Newly diagnosed left ventricular thrombus Acute systolic congestive heart failure, Hypertension Hyperlipidemia Status post AICD Bronchitis Cardiomyopathy with EF 10% Elevated troponin , possible NSTEMI Severe pulmonary hypertension Electrolyte abnormalities Tobacco use disorder Nausea , vomiting and diarrhea, transient, resolved, possibly due to mild gastroenteritis DISCHARGE MEDICATIONS: See Medication Reconciliation list. DISCHARGE INSTRUCTIONS: Patient was discharged home. Follow up with primary care provider in one week. Berta Amaya NP Feb 27, 2019 12:02
--- NOTE | 2019-02-27 14:30 | NUR ---
*-* INSURANCE *-* DISCHARGE SUMMARY HAS BEEN FAXED TO: Leanna PEPPER: Yolie ref#[id number] ph#[phone] cell#[phone] fax#[phone] & [employer] No CM or tracking# assigned yet PH#[phone]
[2019-02-27] MEDS ORDERED: Warfarin Sodium 4mg PO SCH (17:00)
[2019-02-27] MEDS ORDERED: Warfarin Sodium 3mg ORAL SCH (17:00)
== END 2019-02-26 13:48 | disposition home or self-care (01) | DRG 280 ==
LOC: EMR 14:20 → EDBEDREQ 14:39 → 2E 14:40 → EDBEDREQ 16:20
DX: I21.4 Non-ST elevation (NSTEMI) myocardial infarction (principal); I50.23 Acute on chronic systolic (congestive) heart failure; E46 Unspecified protein-calorie malnutrition; I42.0 Dilated cardiomyopathy; I11.0 Hypertensive heart disease with heart failure; E83.42 Hypomagnesemia; J40 Bronchitis, not specified as acute or chronic; Z95.810 Presence of automatic (implantable) cardiac defibrillator; E78.5 Hyperlipidemia, unspecified; I27.20 Pulmonary hypertension, unspecified; F17.200 Nicotine dependence, unspecified, uncomplicated; K52.9 Noninfective gastroenteritis and colitis, unspecified; Z91.11 Patient's noncompliance with dietary regimen; E87.6 Hypokalemia; I34.0 Nonrheumatic mitral (valve) insufficiency; I36.1 Nonrheumatic tricuspid (valve) insufficiency
CPT/HCPCS: 36415; 70450; 71045; 80048; 80053; 82248; 83735; 83880; 84100; 84484; 85025; 85610; 85730; 93005; 93306; 94640; 94664; 96374; 99291; J2405; J7620; J8499